=== PATIENT | female | born 1970 | race American Indian/Alaskan Native ===

== ENCOUNTER 2018-03-10 21:52 | Inpatient (IN) | payer OTHER ==
[2018-03-11 00:21] LABS: Hematocrit 42.4 % (30.3-42.9); Mean Corpuscular HGB Conc 33 % (30-34); Mean Corpuscular Hemoglobin 27 pg (28-32); Mean Corpuscular Volume 83 fl (79-97); Platelet Count 215 K/mm3 (140-440); Red Blood Count 5.11 M/mm3 (3.65-5.03)
[2018-03-11 00:34] LABS: Partial Thromboplastin Time 24.6 Sec. (24.2-36.6)
[2018-03-11 00:40] LABS: Alanine Aminotransferase 16 units/L (7-56); Albumin 4.6 g/dL (3.9-5); BUN/Creatinine Ratio 14; Blood Urea Nitrogen 11 mg/dL (7-17); Calcium 9.5 mg/dL (8.4-10.2); Hemolysis Index 2
[2018-03-11] MEDS ORDERED: MORPHINE IV ONE ×3 (01:45→10:38)
[2018-03-11] MEDS ORDERED: ZOFRAN ONE (01:45)
[2018-03-11] MEDS ORDERED: MORPHINE ONE ×2 (01:46→10:35)
[2018-03-11] MEDS ORDERED: ZOFRAN IV ONE (02:33)
--- NOTE | 2018-03-11 06:19 | Emergency Department Report ---
ED General Adult HPI - General Chief complaint: Extremity Injury, Lower Stated complaint: BACK,LEG PAIN.WEAKNESS Time Seen by Provider: 03/11/18 06:17 Source: patient Mode of arrival: Wheelchair Limitations: No Limitations - History of Present Illness Initial comments: 47-year-old female presents to the emergency department complaining of gluteal/ lower sacral pain on the left which began yesterday. She states that the pain progressed to involve her entire left leg which she found to be swollen by this morning. She has no prior history of DVT. She denies a family history of DVT. She denies recent fever or chills. She does not have any abdominal pain. She has not noticed any drainage from a lakshmi-luteal area. She does not report any change in her bowel habits or any focal weakness or numbness. She is on no prior medications. She reports no recent travel. She is a smoker. -: hour(s) Location: left, lower extremity Radiation: non-radiation Severity scale (0 -10): 10 Quality: aching Consistency: intermittent Improves with: none Worsens with: none Associated Symptoms: denies other symptoms. denies: cough, shortness of breath (no shortness of breath whatsoever) Treatments Prior to Arrival: none - Related Data Home Medications Medication Instructions Recorded Confirmed Last Taken No Known Home Medications [No 03/11/18 03/11/18 Unknown Reported Home Medications] Allergies Allergy/AdvReac Type Severity Reaction Status Date / Time No Known Allergies Allergy Unverified 03/10/18 23:55 ED Review of Systems ROS: Stated complaint: BACK,LEG PAIN.WEAKNESS Other details as noted in HPI Constitutional: denies: chills, fever Eyes: denies: eye pain, eye discharge, vision change ENT: denies: ear pain, throat pain Respiratory: denies: cough, shortness of breath, wheezing Cardiovascular: denies: chest pain, palpitations Endocrine: no symptoms reported Gastrointestinal: denies: abdominal pain, nausea, diarrhea Genitourinary: denies: urgency, dysuria, discharge Musculoskeletal: as per HPI, back pain (lakshmi-sacral), other. denies: joint swelling, arthralgia Skin: denies: rash, lesions Neurological: denies: headache, weakness, paresthesias Psychiatric: denies: anxiety, depression Hematological/Lymphatic: denies: easy bleeding, easy bruising ED Past Medical Hx - Past Medical History Previous Medical History?: No - Surgical History Past Surgical History?: No - Social History Smoking Status: Current Every Day Smoker - Medications Home Medications: Home Medications Medication Instructions Recorded Confirmed Last Taken Type No Known Home Medications [No 03/11/18 03/11/18 Unknown History Reported Home Medications] ED Physical Exam - General Limitations: No Limitations General appearance: alert, in no apparent distress - Head Head exam: Present: atraumatic, normocephalic - Eye Eye exam: Present: normal appearance. Absent: scleral icterus - ENT ENT exam: Present: mucous membranes moist - Neck Neck exam: Present: normal inspection. Absent: tenderness, meningismus - Respiratory Respiratory exam: Present: normal lung sounds bilaterally. Absent: respiratory distress - Cardiovascular Cardiovascular Exam: Present: regular rate, normal rhythm. Absent: systolic murmur, diastolic murmur, rubs, gallop - GI/Abdominal GI/Abdominal exam: Present: soft, normal bowel sounds. Absent: distended, tenderness, guarding, rebound, rigid - Rectal Rectal exam: Present: other (I do not find any gluteal or perianal abnormality) - Extremities Exam Extremities exam: Present: calf tenderness, other (swelling left leg somewhat diffusely more evident in the calf) - Back Exam Back exam: Present: normal inspection. Absent: CVA tenderness (R), CVA tenderness (L), muscle spasm, paraspinal tenderness, vertebral tenderness - Neurological Exam Neurological exam: Present: alert, oriented X3, CN II-XII intact. Absent: motor sensory deficit - Psychiatric Psychiatric exam: Present: normal affect, normal mood - Skin Skin exam: Present: warm, dry, intact, normal color. Absent: rash ED Course Vital Signs 03/10/18 03/10/18 03/11/18 22:48 23:50 05:18 Temperature 98.5 F 98.5 F Pulse Rate 89 83 Respiratory 18 16 Rate Blood Pressure 104/74 104/74 127/84 Blood Pressure [Left] O2 Sat by Pulse 99 99 Oximetry 03/11/18 03/11/18 03/11/18 05:30 06:00 06:30 Temperature Pulse Rate 76 Respiratory 19 Rate Blood Pressure 111/76 130/88 Blood Pressure 123/77 [Left] O2 Sat by Pulse Oximetry 03/11/18 03/11/18 03/11/18 07:00 07:37 08:00 Temperature Pulse Rate 86 78 Respiratory 16 16 18 Rate Blood Pressure 121/79 124/69 Blood Pressure [Left] O2 Sat by Pulse Oximetry 03/11/18 10:39 Temperature Pulse Rate Respiratory 16 Rate Blood Pressure Blood Pressure [Left] O2 Sat by Pulse Oximetry - Reevaluation(s) Reevaluation #1: Discussed with Dr. Horowitz. 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 She has been hemodynamically stable. 03/11/18 11:42 Reevaluation #2: Dr. Foster here seeing patient. 03/11/18 11:43 ED Medical Decision Making - Lab Data Result diagrams: 03/11/18 10:04 03/11/18 00:03 Laboratory Results - last 24 hr 03/11/18 03/11/18 03/11/18 00:03 00:03 00:03 WBC 17.1 H RBC 5.11 H Hgb 14.0 Hct 42.4 MCV 83 MCH 27 L MCHC 33 RDW 16.0 H Plt Count 215 PT 13.7 INR 1.00 APTT 24.6 D-Dimer 7951.75 H Sodium 138 Potassium 3.9 Chloride 98.0 Carbon Dioxide 25 Anion Gap 19 BUN 11 Creatinine 0.8 Estimated GFR > 60 BUN/Creatinine Ratio 14 Glucose 128 H Calcium 9.5 Total Bilirubin 0.80 AST 17 ALT 16 Alkaline Phosphatase 94 Total Protein 7.7 Albumin 4.6 Albumin/Globulin Ratio 1.5 Laboratory Results - last 24 hr 03/11/18 03/11/18 03/11/18 00:03 00:03 00:03 WBC 17.1 H RBC 5.11 H Hgb 14.0 Hct 42.4 MCV 83 MCH 27 L MCHC 33 RDW 16.0 H Plt Count 215 PT 13.7 INR 1.00 APTT 24.6 D-Dimer 7951.75 H Sodium 138 Potassium 3.9 Chloride 98.0 Carbon Dioxide 25 Anion Gap 19 BUN 11 Creatinine 0.8 Estimated GFR > 60 BUN/Creatinine Ratio 14 Glucose 128 H Lactic Acid Calcium 9.5 Total Bilirubin 0.80 AST 17 ALT 16 Alkaline Phosphatase 94 Total Protein 7.7 Albumin 4.6 Albumin/Globulin Ratio 1.5 Urine Color Urine Turbidity Urine pH Ur Specific [place] Urine Protein Urine Glucose (UA) Urine Ketones Urine Blood Urine Nitrite Urine Bilirubin Urine Urobilinogen Ur Leukocyte Esterase Urine WBC (Auto) Urine RBC (Auto) U Epithel Cells (Auto) Urine Bacteria (Auto) Urine Mucus Urine HCG, Qual 03/11/18 03/11/18 03/11/18 07:11 10:04 10:04 WBC RBC Hgb 13.8 Hct 41.9 MCV MCH MCHC RDW Plt Count 191 PT 14.9 INR 1.11 APTT 20.2 L D-Dimer Sodium Potassium Chloride Carbon Dioxide Anion Gap BUN Creatinine Estimated GFR BUN/Creatinine Ratio Glucose Lactic Acid 1.70 Calcium Total Bilirubin AST ALT Alkaline Phosphatase Total Protein Albumin Albumin/Globulin Ratio Urine Color Urine Turbidity Urine pH Ur Specific [place] Urine Protein Urine Glucose (UA) Urine Ketones Urine Blood Urine Nitrite Urine Bilirubin Urine Urobilinogen Ur Leukocyte Esterase Urine WBC (Auto) Urine RBC (Auto) U Epithel Cells (Auto) Urine Bacteria (Auto) Urine Mucus Urine HCG, Qual 03/11/18 10:07 WBC RBC Hgb Hct MCV MCH MCHC RDW Plt Count PT INR APTT D-Dimer Sodium Potassium Chloride Carbon Dioxide Anion Gap BUN Creatinine Estimated GFR BUN/Creatinine Ratio Glucose Lactic Acid Calcium Total Bilirubin AST ALT Alkaline Phosphatase Total Protein Albumin Albumin/Globulin Ratio Urine Color Yellow Urine Turbidity Slightly-cloudy Urine pH 5.0 Ur Specific [place] 1.060 H Urine Protein 30 mg/dl Urine Glucose (UA) Neg Urine Ketones Neg Urine Blood Neg Urine Nitrite Neg Urine Bilirubin Neg Urine Urobilinogen < 2.0 Ur Leukocyte Esterase Neg Urine WBC (Auto) 1.0 Urine RBC (Auto) 9.0 U Epithel Cells (Auto) 20.0 H Urine Bacteria (Auto) 1+ Urine Mucus 3+ Urine HCG, Qual Negative - EKG Data -: EKG Interpreted by Me EKG shows normal: sinus rhythm, axis, intervals, QRS complexes, ST-T waves Rate: normal - EKG Data Interpretation: no acute changes - Radiology Data Radiology results: report reviewed (discussed with Doppler tech. Thrombosis from the groin to the calf by) interpreted by me: ACUTE DVT NOTED IN LT. CFV, SFV , PTV. Chest x-ray no acute process Awaiting radiology interpretation CT of the abdomen and pelvis Critical care attestation.: If time is entered above; I have spent that time in minutes in the direct care of this critically ill patient, excluding procedure time. ED Disposition Clinical Impression: Deep vein thrombosis Qualifiers: DVT location: lower extremity Affected thrombotic vein of extremity: unspecified lower extremity proximal vein Chronicity: acute Laterality: left Qualified Code(s): I82.4Y2 - Acute embolism and thrombosis of unspecified deep veins of left proximal lower extremity Disposition: OP ADMIT IP TO THIS HOSP Is pt being admited?: Yes Does the pt Need Aspirin: No (fully heparinized) Condition: Stable Referrals: PRIMARY CARE, [Primary Care Provider] - 3-5 Days Time of Disposition: 11:45
[2018-03-11] MEDS ORDERED: HEPARIN 10,000 UNITS/10 ML IV ONE (09:12)
[2018-03-11] MEDS ORDERED: HEPARIN/ 0.45% NACL-25,000 UNIT/500 ML 25,000 UNIT/500 ML BAG IV SCH (10:00)
[2018-03-11] MEDS ORDERED: HEPARIN/ 0.45% NACL-25,000 UNIT/500 ML 25,000 UNIT/500 ML BAG ONE (10:14)
[2018-03-11 10:26] LABS: Hematocrit 41.9 % (30.3-42.9); Hemoglobin 13.8 gm/dl (10.1-14.3)
[2018-03-11 10:32] LABS: Bacteria,Urine 1+ /HPF (Negative); Bilirubin,Urine NEG (Negative); Blood,Urine NEG (Negative); Color,Urine Yellow (Yellow); HCG Qualitative,Urine Negative (Negative); Mucus,Urine 3+ /HPF; Urobilinogen,Urine < 2.0 mg/dL (<2.0)
[2018-03-11 10:37] LABS: INR 1.11 (0.87-1.13); Partial Thromboplastin Time 20.2 Sec. (24.2-36.6)
--- NOTE | 2018-03-11 12:25 | History and Physical Report ---
History of Present Illness Date of examination: 03/11/18 Date of admission: 03/11/18 11:29 Chief complaint: Pain and swelling left leg History of present illness: Patient is 47 yo obese female presents with left leg pain and swelling for 1 day. pain is 10 out of 10 in severity, achy, no radiation. pain is worse on movement, though present at rest. She also complained of swelling leg for 1 day. She denied any trauma, denies any recent travel. No chest pain, no shortness of breath. She was evaluated in ED and Doppler confirms acute DVT left lower ext that is extensive. patient already evaluated by vascular surgeon. She is for thrombectomy, thrombolysis and possible angioplasty. Will admit. Past History Past Medical History: No medical history, other (obese) Past Surgical History: (X 4) Social history: lives with family, smoking (Started nicotine patch to quit smoking. been smoking for years), full code (easily identified as he is he is). denies: IV drug use Family history: cancer ( a [facility] or present illness he is as well and I will utilize as needed AT THE BEGINNING OF) Medications and Allergies Allergies Allergy/AdvReac Type Severity Reaction Status Date / Time No Known Allergies Allergy Unverified 03/10/18 23:55 Home Medications Medication Instructions Recorded Confirmed Last Taken Type No Known Home Medications [No 03/11/18 03/11/18 Unknown History Reported Home Medications] Active Meds: Active Medications Heparin Sodium/Sodium Chloride (Heparin/ 0.45% Nacl-25,000 Unit/500 Ml) 25,000 unit in 500 mls @ 30 mls/hr IV TITR HANNAH; Protocol Last Admin: 03/11/18 10:15 Dose: 1,500 units/hr, 30 mls/hr Review of Systems All systems: negative (No fever, no headache, no chest pain, no SOB. All other systems reviewed and are negative) Exam - Physical Exam Narrative exam: GEN:Not in acute distress, lying in bed,obese HEENT: Normocephalic, atraumatic, Neck: supple, No JVD Lungs: Clear to auscultaion bilaterally, no crackles Heart:S1 and S2 reg, no murmurs, rubs or gallop Abd:soft, non-tender, non-distended, Normal bowel sounds Ext: Left leg edema, tenderness, no clubbing or cyanosis Neuro: Awake, alert, oriented X 3, Moves all extremities - Constitutional Vitals: Temp Pulse Resp BP Pulse Ox 98.5 F 85 20 137/95 99 03/10/18 23:50 03/11/18 11:30 03/11/18 11:30 03/11/18 11:30 03/11/18 11:30 Results - Labs CBC & Chem 7: 03/12/18 06:10 03/12/18 06:10 Labs: Abnormal lab results 03/11/18 03/11/18 03/11/18 Range/Units 00:03 00:03 00:03 WBC 17.1 H (4.5-11.0) K/mm3 RBC 5.11 H (3.65-5.03) M/mm3 MCH 27 L (28-32) pg RDW 16.0 H (13.2-15.2) % APTT (24.2-36.6) Sec. D-Dimer 7951.75 H (0-234) ng/mlDDU Glucose 128 H (65-100) mg/dL Ur Specific [place] (1.003-1.030) U Epithel Cells (Auto) (0-13.0) /HPF 03/11/18 03/11/18 Range/Units 10:04 10:07 WBC (4.5-11.0) K/mm3 RBC (3.65-5.03) M/mm3 MCH (28-32) pg RDW (13.2-15.2) % APTT 20.2 L (24.2-36.6) Sec. D-Dimer (0-234) ng/mlDDU Glucose (65-100) mg/dL Ur Specific [place] 1.060 H (1.003-1.030) U Epithel Cells (Auto) 20.0 H (0-13.0) /HPF Assessment and Plan Acute DVT left lower ext extensive. Admit to med/surg Discussed with Dr. Horowitz, vasc surg . For thrombectomy, thrombolysis Obesity. Discussed diet and exercise to lose weight Smoking cessation counseling done.'She states she has been using patch to quit smoking Full code status
[2018-03-11] MEDS ORDERED: ALUM-MAG HYDROX-SIMETH 200-200-20MG/5ML PO PRN (12:58)
[2018-03-11] MEDS ORDERED: SODIUM CHLORIDE FLUSH SYRINGE 10 ML IV PRN (12:58)
[2018-03-11] MEDS ORDERED: MORPHINE IV PRN (12:58)
[2018-03-11] MEDS ORDERED: HEPARIN/NS 5000 UNIT/500ML(CATH LAB) 1,000 ML IR ONE ×2 (13:00→14:19)
[2018-03-11] MEDS ORDERED: NACL 0.9% 500 ML 500 ML ONE (13:01)
[2018-03-11] MEDS ORDERED: CATHFLO ONE ×2 (13:02→13:14)
[2018-03-11] MEDS ORDERED: NACL 0.9% 0 ML ONE (13:02)
--- NOTE | 2018-03-11 13:05 | Consultation ---
History of Present Illness - Reason for Consult Consult date: 03/11/18 Left Lower Extremity DVT Requesting physician: WILVER HARRIS - History of Present Illness The patient is a 47-year-old female with no significant past medical history states she began having significant back and left lower extremity pain on Saturday. She states that this was associated with left lower extremity swelling as well. She denies any recent illness or surgical procedures that required prolonged bed rest. She states she went to her [facility] class on Saturday however she was unable to make it to the first song and went home secondary to the pain. Since Saturday the pain and swelling has progressively worsened. She denies any history of deep venous thrombosis. She she also denies any family history of deep venous thrombosis. 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 Other than the pain and swelling of the left lower extremity she has no other complaints including no shortness of breath. Additionally she denies any recent or remote history of head trauma, rectal bleeding or vaginal bleeding. Past History Past Medical History: No medical history, other (obese) Past Surgical History: (X 4), Other (Excision of skin from alleric reaction on left ankle) Social history: lives with family, smoking (Started nicotine patch), full code ( easily identified as he is he is). denies: IV drug use Family history: cancer ( a [facility] or present illness he is as well and I will utilize as needed AT THE BEGINNING OF) Medications and Allergies Allergies Allergy/AdvReac Type Severity Reaction Status Date / Time No Known Allergies Allergy Unverified 03/10/18 23:55 Home Medications Medication Instructions Recorded Confirmed Last Taken Type No Known Home Medications [No 03/11/18 03/11/18 Unknown History Reported Home Medications] Active Meds: Active Medications Heparin Sodium/Sodium Chloride (Heparin/ 0.45% Nacl-25,000 Unit/500 Ml) 25,000 unit in 500 mls @ 30 mls/hr IV TITR HANNAH; Protocol Last Admin: 03/11/18 10:15 Dose: 1,500 units/hr, 30 mls/hr Review of Systems All systems: negative Exam - Constitutional Vitals: Temp Pulse Resp BP Pulse Ox 98.5 F 88 16 140/91 99 03/10/18 23:50 03/11/18 12:00 03/11/18 12:00 03/11/18 12:00 03/11/18 11:30 General appearance: Present: obese - EENT ENT: hearing intact - Neck Neck: Present: supple. Absent: masses or JVD - Respiratory Respiratory effort: normal - Cardiovascular Rhythm: regular - Extremities Extremities: no ischemia, pulses intact, pulses symmetrical, normal temperature Extremity abnormal: edema (Left lower extremity) - Abdominal General gastrointestinal: Present: soft, non-tender, non-distended - Integumentary Integumentary: Present: clear - Musculoskeletal Musculoskeletal: strength equal bilaterally Results - Labs CBC & Chem 7: 03/11/18 10:04 03/11/18 00:03 Labs: Abnormal lab results 03/11/18 03/11/18 03/11/18 Range/Units 00:03 00:03 00:03 WBC 17.1 H (4.5-11.0) K/mm3 RBC 5.11 H (3.65-5.03) M/mm3 MCH 27 L (28-32) pg RDW 16.0 H (13.2-15.2) % APTT (24.2-36.6) Sec. D-Dimer 7951.75 H (0-234) ng/mlDDU Glucose 128 H (65-100) mg/dL Ur Specific [place] (1.003-1.030) U Epithel Cells (Auto) (0-13.0) /HPF 03/11/18 03/11/18 Range/Units 10:04 10:07 WBC (4.5-11.0) K/mm3 RBC (3.65-5.03) M/mm3 MCH (28-32) pg RDW (13.2-15.2) % APTT 20.2 L (24.2-36.6) Sec. D-Dimer (0-234) ng/mlDDU Glucose (65-100) mg/dL Ur Specific [place] 1.060 H (1.003-1.030) U Epithel Cells (Auto) 20.0 H (0-13.0) /HPF - Imaging and Cardiology CT scan - abdomen: image reviewed Venous US: image reviewed (Acute Left lower extremity DVT involving tibial vessels and extending into the popliteal and femoral vessels. The proximal popliteal, femoral, and profunda vein are occluded) Assessment and Plan The patient is a 47 year old female with and extensive LLE DVT with occusive thrombus in the fermoral vein and profunda vein. Given these findings and her symptoms she would benefit from left lower extremity thrombectomy with possible thrombolysis to prevent future complications of post phlebitic syndrome. If she has evidence of May-Thurner Syndrome she may require angioplasty and stenting of her iliac veins. Would also recommend a anticoagulation with oral Anti Xa drugs such as Eliquis or Xarelto for a minimum of 3 months. I would get a Compress Trucker/Oncologist consult to rule out a hyperocoagulable state from Antiphospholipid Syndromes given the DVT with the history of multiple miscarriages. If that were positive, she would require anticoagulation for life.
[2018-03-11] MEDS: SUBLIMAZE ONE ×5 (13:12→15:13)
[2018-03-11] MEDS: VERSED ONE ×5 (13:12→15:13)
--- NOTE | 2018-03-11 13:12 | XRay Report ---
AP CHEST : 03/11/18 CLINICAL: Hypertension. COMPARISON:None FINDINGS: Normal heart and pulmonary vessels. The lungs are clear except for mild right basal opacities. No pleural effusion. The bones and soft tissues are unremarkable. IMPRESSION: Mild right middle lobe atelectasis versus early pneumonia.
--- NOTE | 2018-03-11 13:12 | Cat Scan Report ---
CT ABDOMEN PELVIS WITH CONTRAST: HISTORY: Pelvic pain, leukocytosis, swollen left lower extremity. COMPARISON: none. TECHNIQUE: Helical CT in 1.25mm intervals following IV contrast. Sagittal and coronal reconstructions. FINDINGS: Lung bases: Normal. Liver: Normal. Biliary system: Normal. Pancreas: Normal. Spleen: Normal. Kidneys/ureters/bladder: Normal. Adrenal glands: Normal. Aorta: Normal. The IVC and iliac veins appear to be patent with no obvious thrombosis. The internal iliac veins do appear dilated bilaterally with presacral varicosities. There is suggestion of mild compression of the left iliac vein as it crosses beneath the right common iliac artery. May Thurner syndrome could be considered. Intestines: Within normal limits given no oral contrast was administered. Appendix: Normal. Pelvic viscera: A 2.1 cm right ovarian cyst is identified. The uterus and left ovary are unremarkable. Ascites: None. Adenopathy: None. Musculoskeletal: Normal. IMPRESSION: No acute inflammatory process is identified. May Thurner syndrome? Please see above. 2.1 cm right ovarian cyst.
[2018-03-11] MEDS: XYLOCAINE 1%/ EPI 1:100,000 INFILTRATI ONE ×2 (13:14→13:53)
[2018-03-11] MEDS ORDERED: WATER FOR INJ (PF) ONE (13:28)
[2018-03-11] MEDS ORDERED: NACL 0.9% 100 ML ONE (13:58)
[2018-03-11] MEDS: HEPARIN 10,000 UNITS/10 ML ONE ×2 (14:08→15:15)
[2018-03-11] MEDS ORDERED: TORADOL ONE (14:29)
--- NOTE | 2018-03-11 16:06 | Operative Report ---
Operative Report Operative Report: Date of Procedure: 03/11/2018 Pre-operative Diagnosis: Acute Left Lower Extremity DVT Post-operative Diagnosis: Acute Left Lower Extremity DVT with May-Thurner Syndrome Procedure(s): 1. Ultrasound-Guided Access Right Internal Jugular Vein 2. Diagnostic Inferior Venacavogram 3. Placement of Brenda IVC Filter 4. Ultrasound-Guided Access Left Popliteal Vein 5. PharmacoMechanical Thrombectomy of Left Common Femoral Vein with TPA and Zelante AngioJet Aspiration Catheter 6. PharmacoMechanical Thrombectomy of Left External Iliac Vein TPA and Zelante AngioJet Aspiration Catheter 7. PharmacoMechanical Thrombectomy of Left Common Iliac Vein TPA and Zelante AngioJet Aspiration Catheter 8. Angioplasty and Stent of Left Common Iliac Vein With 14 x 40 Balloon and 16 x 90 Wall Stent 9. Angioplasty and Stenting of Left External Iliac Vein with 14 x 40 Balloon and 16 x 90 Wall Stent 10. Angioplasty Stent of Right Common Iliac Vein with 14 x 40 Balloon and 14 x 60 Wall Stent Surgeon: Olayinka Horowitz M.D. Job Forwarder: None Anesthesia: Local and IV Sedation EBL: Minimal Counts: Correct Complications: None Condition: Stable Venogram Findings: The inferior venacavogram shredded that the inferior vena cava was patent without any evidence of thrombus. It was normal caliber. The filter was placed without significant tilt. The left lower extremity venogram demonstrated that all reported thrombus within the left popliteal artery had embolized and was lodged within the left common femoral, external iliac, and common iliac veins. There was obvious evidence of May-Thurner Syndrome with near total occlusion of the proximal left common iliac vein. After intervention the left common femoral vein as well as the external leg vein and the common iliac veins were widely patent with brisk flow of contrast in less than 10% residual stenosis. Specimen: None Indication: The patient is a 47-year-old female who presented to the emergency department with complaints of back pain and left lower extremity pain and swelling that has been present for 3 days prior to her presentation to the emergency department. Her workup included a left lower extremity venous duplex that demonstrated acute deep venous thrombosis with occlusion of her femoral vein including her profunda vein. Given her pain and the concern for postphlebitic syndrome she was offered a thrombectomy with possible thrombolysis. She was given the risks, benefits, and alternative procedures and consented to the procedure. Description of Procedure: The patient was brought to the labor relations officer in supine position. She was adequately sedated her right neck was prepped and draped in normal sterile fashion. Ultrasound was used to identify the right internal jugular vein and the overlying skin and soft tissue was anesthetized with lidocaine. A small stab incision was created with an 11 blade and then an 18-gauge access needle was used with ultrasound guidance to enter the right internal jugular vein. A 0.035 J-wire was advanced into the inferior vena cava under fluoroscopy. A 5 [place] sheath was in place by Seldinger technique. A 5 [place] pigtail catheter was advanced to the inferior vena cava and an inferior venacavogram was performed with the procedures described findings. The J-wire was then advanced back into the inferior vena cava and the pigtail catheter was removed. The filter delivery sheath was advanced into the inferior vena cava and then the filter was advanced and position. The delivery sheath was retracted deploying the filter in place with the proximal tip in the middle of the body of L2 without any evidence of tilt. The delivery sheath was then removed and pressure was held to achieve hemostasis. Dermabond was then used to close the incision and a pressure dressing was then placed sterilely. The patient was then moved onto her bed and then placed back onto the labor relations officer table position. Ultrasound was used to identify the left popliteal vein behind the knee and the overlying skin and soft tissue was anesthetized with lidocaine. A small stab incision was made in the micropuncture technique was used with ultrasound guidance into the left popliteal vein. The 0.035 J-wire was advanced into the left femoral vein under fluoroscopy and a 5 [place] sheath was placed via Seldinger technique. A venogram was performed with the previously described findings. At this point I systemically heparinized the patient 5000 units heparin IV. I advanced a 4 [place] Navicross catheter over the J-wire and attempted to cross the stenosis created by the compression in the left, leg vein with multiple wires however I was unsuccessful so I advanced the J-wire to the area of compression. I removed the 5 [place] sheath and exchanged for an 8 [place] sheath and used the Zelante AngioJet aspiration catheter for a total of 90 seconds to perform percutaneous thrombectomy of the left common iliac, external iliac, common femoral veins. The follow-up venogram demonstrated significant reduction of the thrombus burden. I then use a total of 30 mg of TPA and 100 mg of heparinized saline and placed the entire area of thrombus with the solution. I allowed this to dwell for a total of 20 minutes and then I used the Zelante Angiojet aspiration catheter to perform an additional 90 seconds thrombectomy of the same areas as previously performed. After performing the thrombectomy I readvanced the Navicross catheter to the area of occlusion and used a 0.014 Choice PT wire and was able to cross the area of occlusion. I was unable to pass the catheter across the occlusion so I used a 6 x 100 Lennox balloon to predilate the stenosis. I then exchanged the 8 [place] sheath in the left popliteal vein for 10 [place] sheath. I then used ultrasound to identify the right popliteal vein behind the knee. I anesthetized the overlying skin and soft tissue and made a small stab incision with an 11 blade. I used ultrasound guidance with microscopic technique to access the vein and then advanced a 0.035 J-wire into the right femoral vein under fluoroscopy. I placed a 10 [place] sheath by Seldinger technique. I then used a 14 x 40 balloon to perform angioplasty of the stenotic areas within the left common iliac and left external iliac veins. The post angioplasty venogram demonstrated recoil of the lesions with a residual of 80% stenosis. I advanced a 16 x 90 self-expanding Wall Stent into the distal IVC with approximately 3 cm of overlap across the area of stenosis in the left common iliac vein. I then advanced a 14 x 60 self-expanding Wall Stent into the right common iliac vein, at the same level as the left common iliac stent. The stents were simultaneously deployed and then the 14 x 40 balloons were inflated simultaneously in the right and left common iliac veins respectively to post dilate the stents. Additionally in the 14 x 40 balloon was used to post dilate not lesion within the left external leg vein. The post angioplasty venogram demonstrated less than 10% residual stenosis bilaterally. At this point all wires and balloons were removed and then the sheaths were removed and pressure was held to achieve hemostasis. The wounds were then dressed with sterile gauze and pressure dressings were applied. The patient tolerated the procedure well. All sponge, needle, and instrument counts were correct. The patient was taken to her room in stable condition.
[2018-03-11] MEDS: ELIQUIS PO SCH ×2 (18:28→22:23)
[2018-03-11] MEDS: TORADOL IV SCH ×2 (18:28→22:27)
--- NOTE | 2018-03-11 21:52 | Event Note ---
Date: 03/11/18 As pt was in Radiology guided procedure room for her DVT, hence I could not evaluate pt. Will follow her tomorrow
[2018-03-11] MEDS: SODIUM CHLORIDE FLUSH SYRINGE 10 ML IV SCH (22:22)
[2018-03-12 06:38] LABS: Basophils # (Auto) 0.1 K/mm3 (0.0-0.1); Basophils % (Auto) 0.5 % (0.0-1.8); Eosinophils # (Auto) 0.2 K/mm3 (0.0-0.4); Eosinophils % (Auto) 1.8 % (0.0-4.3); Hematocrit 32.5 % (30.3-42.9); Hemoglobin 10.9 gm/dl (10.1-14.3); Lymphocytes # (Auto) 1.5 K/mm3 (1.2-5.4); Lymphocytes % (Auto) 12.6 % (13.4-35.0); Mean Corpuscular HGB Conc 34 % (30-34); Mean Corpuscular Hemoglobin 28 pg (28-32); Mean Corpuscular Volume 83 fl (79-97); Monocytes # (Auto) 1.5 K/mm3 (0.0-0.8); Monocytes % (Auto) 12.2 % (0.0-7.3); Platelet Count 136 K/mm3 (140-440); Red Blood Count 3.91 M/mm3 (3.65-5.03); Red Cell Distribution Width 15.9 % (13.2-15.2)
[2018-03-12] MEDS: TORADOL IV SCH (06:50)
[2018-03-12 07:07] LABS: Calcium 8.5 mg/dL (8.4-10.2)
--- NOTE | 2018-03-12 08:53 | Consultation ---
History of Present Illness - Reason for Consult Consult date: 03/12/18 acute renal failure - History of Present Illness The patient was a 47 YO female with medical history significant for Obesity who presented with left leg pain and swelling of 1 day duration. The pain was 10 out of 10 in severity, aching in nature, constant and no radiation. She denied any trauma, recent travel, chest pain, shortness of breath, hemoptysis, palpitation, dizziness, fever, chills, N, V, d, abd pain, dysuria or hematuria. On further evaluation she was found to have extensive acute DVT of left lower extremity. She underwent thrombectomy, angioplasty and IVC filter placement. Patient admits taking Advil for the past few days on a daily basis. She received IV contrast yesterday. Her creatinine increased to 3.1 today from 0.8 today. Past History Past Medical History: No medical history, other (obesity) Past Surgical History: (X 4) Social history: lives with family, smoking (Started nicotine patch to quit smoking. been smoking for years), full code (easily identified as he is he is). denies: IV drug use Family history: cancer ( a [facility] or present illness he is as well and I will utilize as needed AT THE BEGINNING OF) Medications and Allergies Allergies Allergy/AdvReac Type Severity Reaction Status Date / Time No Known Allergies Allergy Unverified 03/10/18 23:55 Home Medications Medication Instructions Recorded Confirmed Last Taken Type No Known Home Medications [No 03/11/18 03/11/18 Unknown History Reported Home Medications] Active Meds: Active Medications Acetaminophen (Tylenol) 650 mg PO Q4H PRN PRN Reason: Pain MILD(1-3)/Fever >100.5/ROCHE Acetaminophen/Hydrocodone Bitart ([place] 7.5/325) 1 each PO Q6H PRN PRN Reason: Pain, Moderate (4-6) Al Hydrox/Mg Hydrox/Simethicone (Alum-Mag Hydrox-Simeth [id number]/5ml) 30 ml PO Q4H PRN PRN Reason: Indigestion Apixaban (Eliquis) 10 mg PO Q12HR HANNAH; Protocol Last Admin: 03/11/18 22:23 Dose: 10 mg Ondansetron HCl (Zofran) 4 mg IV Q8H PRN PRN Reason: Nausea And Vomiting Sodium Chloride (Sodium Chloride Flush Syringe 10 Ml) 10 ml IV BID HANNAH Last Admin: 03/11/18 22:22 Dose: 10 ml Sodium Chloride (Sodium Chloride Flush Syringe 10 Ml) 10 ml IV PRN PRN PRN Reason: LINE FLUSH Review of Systems Constitutional: no weight loss, no weight gain, no fever, no chills, no anorexia , no fatigue, no weakness Breasts: deferred Cardiovascular: edema, leg edema, no chest pain, no orthopnea, no palpitations, no syncope, no lightheadedness, no shortness of breath, no dyspnea on exertion, no high blood pressure Respiratory: no cough, no hemoptysis, no shortness of breath, no dyspnea on exertion Gastrointestinal: no abdominal pain, no nausea, no vomiting, no diarrhea, no melena, no jaundice Genitourinary Female: no dysuria, no hematuria Rectal: no bleeding Musculoskeletal: no muscle weakness, no muscle cramps Integumentary: no rash, no redness, no wounds, no jaundice Neurological: no paralysis, no weakness, no convulsions, no change in speech, no change in mentation, no confusion, no memory loss Exam - Vital Signs Vital signs: Vital Signs Temp Pulse Resp BP Pulse Ox 98.5 F 89 18 104/74 99 03/10/18 22:48 03/10/18 22:48 03/10/18 22:48 03/10/18 22:48 03/10/18 22:48 - General Appearance General appearance: well-developed, well-nourished, appears stated age, other ( not in distress) EENT: ATNC, PERRL, mucous membranes moist, hearing intact, vision intact Neck: Present: neck supple, trachea midline Respiratory: Clear to Ascultation Heart: regular, S1S2, no murmurs Gastrointestinal: Present: normoactive bowel sounds, obese. Absent: tenderness , distended Integumentary: no rash, warm and dry Neurologic: no focal deficit, no asterixis, alert and oriented x3 Musculoskeletal: Present: other (no edema) Psychiatric: cooperative Results - Lab Results 03/13/18 04:45 03/13/18 04:45 Most recent lab results Calcium 8.5 mg/dL (8.4-10.2) 03/12/18 06:10 - Image Kidney/bladder ultrasound: other Assessment and Plan 1. Acute kidney injury: Likely ATN in the setting of NSAIDs and IV contrast. Started on IV fluids and Mucomyst. CT abdomen was negative for any urinary obstruction. No e/o Renal or IVC obstruction. Monitor renal function. 2. Extensive DVT. 3. Anemia.
--- NOTE | 2018-03-12 09:41 | Progress Note ---
Assessment and Plan Assessment and plan: Acute DVT left lower ext extensive. Admitted to med/surg Discussed with Dr. Horowitz, [facility] surg . had thrombectomy, angioplasty and stent placement 03/11 Acute kidney injury, likely contrast nephropathy Cr 3.4 iv fluids, mucomyst Obesity. Discussed diet and exercise to lose weight Smoking cessation counseling done.'She states she has been using patch to quit smoking Full code status History Interval history: Less pain left leg Hospitalist Physical - Physical exam Narrative exam: GEN:Not in acute distress, lying in bed,obese HEENT: Normocephalic, atraumatic, Neck: supple, No JVD Lungs: Clear to auscultaion bilaterally, no crackles Heart:S1 and S2 reg, no murmurs, rubs or gallop Abd:soft, non-tender, non-distended, Normal bowel sounds Ext: Left leg edema, tenderness, no clubbing or cyanosis Neuro: Awake, alert, oriented X 3, Moves all extremities - Constitutional Vitals: Temp Pulse Resp BP Pulse Ox 98.8 F 99 H 20 137/85 96 03/12/18 06:06 03/12/18 06:06 03/12/18 06:06 03/12/18 06:06 03/12/18 06:06 General appearance: Present: obese Results - Labs CBC & Chem 7: 03/13/18 04:45 03/13/18 04:45 Labs: Laboratory Last Values WBC 12.1 K/mm3 (4.5-11.0) H 03/12/18 06:10 RBC 3.91 M/mm3 (3.65-5.03) 03/12/18 06:10 Hgb 10.9 gm/dl (10.1-14.3) 03/12/18 06:10 Hct 32.5 % (30.3-42.9) D 03/12/18 06:10 MCV 83 fl (79-97) 03/12/18 06:10 MCH 28 pg (28-32) 03/12/18 06:10 MCHC 34 % (30-34) 03/12/18 06:10 RDW 15.9 % (13.2-15.2) H 03/12/18 06:10 Plt Count 136 K/mm3 (140-440) L 03/12/18 06:10 Lymph % (Auto) 12.6 % (13.4-35.0) L 03/12/18 06:10 [place] % (Auto) 12.2 % (0.0-7.3) H 03/12/18 06:10 Eos % (Auto) 1.8 % (0.0-4.3) 03/12/18 06:10 Baso % (Auto) 0.5 % (0.0-1.8) 03/12/18 06:10 Lymph # 1.5 K/mm3 (1.2-5.4) 03/12/18 06:10 [place] # 1.5 K/mm3 (0.0-0.8) H 03/12/18 06:10 Eos # 0.2 K/mm3 (0.0-0.4) 03/12/18 06:10 Baso # 0.1 K/mm3 (0.0-0.1) 03/12/18 06:10 Seg Neutrophils % 72.9 % (40.0-70.0) H 03/12/18 06:10 Seg Neutrophils # 8.8 K/mm3 (1.8-7.7) H 03/12/18 06:10 PT 14.9 Sec. (12.2-14.9) 03/11/18 10:04 INR 1.11 (0.87-1.13) 03/11/18 10:04 APTT 20.2 Sec. (24.2-36.6) L 03/11/18 10:04 D-Dimer 7951.75 ng/mlDDU (0-234) H 03/11/18 00:03 Heparin Anti-Xa Level > 2.00 U.I./ml (0.3-0.7) H 03/11/18 06:10 Sodium 136 mmol/L (137-145) L 03/12/18 06:10 Potassium 4.1 mmol/L (3.6-5.0) 03/12/18 06:10 Chloride 100.3 mmol/L (98-107) 03/12/18 06:10 Carbon Dioxide 23 mmol/L (22-30) 03/12/18 06:10 Anion Gap 17 mmol/L 03/12/18 06:10 BUN 23 mg/dL (7-17) H 03/12/18 06:10 Creatinine 3.1 mg/dL (0.7-1.2) H D 03/12/18 06:10 Estimated GFR 16 ml/min 03/12/18 06:10 BUN/Creatinine Ratio 7 % 03/12/18 06:10 Glucose 110 mg/dL (65-100) H 03/12/18 06:10 Lactic Acid 1.70 mmol/L (0.7-2.0) 03/11/18 07:11 Calcium 8.5 mg/dL (8.4-10.2) 03/12/18 06:10 Total Bilirubin 0.80 mg/dL (0.1-1.2) 03/11/18 00:03 AST 17 units/L (5-40) 03/11/18 00:03 ALT 16 units/L (7-56) 03/11/18 00:03 Alkaline Phosphatase 94 units/L (35-129) 03/11/18 00:03 Total Protein 7.7 g/dL (6.3-8.2) 03/11/18 00:03 Albumin 4.6 g/dL (3.9-5) 03/11/18 00:03 Albumin/Globulin Ratio 1.5 % 03/11/18 00:03 Urine Color Yellow (Yellow) 03/11/18 10:07 Urine Turbidity Slightly-cloudy (Clear) 03/11/18 10:07 Urine pH 5.0 (5.0-7.0) 03/11/18 10:07 Ur Specific [place] 1.060 (1.003-1.030) H 03/11/18 10:07 Urine Protein 30 mg/dl mg/dL (Negative) 03/11/18 10:07 Urine Glucose (UA) Neg mg/dL (Negative) 03/11/18 10:07 Urine Ketones Neg mg/dL (Negative) 03/11/18 10:07 Urine Blood Neg (Negative) 03/11/18 10:07 Urine Nitrite Neg (Negative) 03/11/18 10:07 Urine Bilirubin Neg (Negative) 03/11/18 10:07 Urine Urobilinogen < 2.0 mg/dL (<2.0) 03/11/18 10:07 Ur Leukocyte Esterase Neg (Negative) 03/11/18 10:07 Urine WBC (Auto) 1.0 /HPF (0.0-6.0) 03/11/18 10:07 Urine RBC (Auto) 9.0 /HPF (0.0-6.0) 03/11/18 10:07 U Epithel Cells (Auto) 20.0 /HPF (0-13.0) H 03/11/18 10:07 Urine Bacteria (Auto) 1+ /HPF (Negative) 03/11/18 10:07 Urine Mucus 3+ /HPF 03/11/18 10:07 Urine HCG, Qual Negative (Negative) 03/11/18 10:07
[2018-03-12 10:31] LABS: Calcium 8.6 mg/dL (8.4-10.2)
[2018-03-12] MEDS: ELIQUIS PO SCH ×2 (10:45→23:03)
[2018-03-12] MEDS: MUCOMYST ORAL PO SCH (10:45)
[2018-03-12] MEDS: NACL 0.9% 1000 ML 1,000 ML IV SCH (10:46)
[2018-03-12] MEDS: SODIUM CHLORIDE FLUSH SYRINGE 10 ML IV SCH (10:46)
--- NOTE | 2018-03-12 11:22 | Progress Note ---
Assessment and Plan His patient presented with an acute extensive left lower extremity DVT. She is taken for mechanical thrombectomy with thrombolysis. Venous angioplasty and stent placement were performed. Patient's GFR has decreased. Intravenous hydration has been ordered. Nephrology has been consulted. Anticoagulation with Eliquis has been started. - Patient Problems (1) May-Thurner syndrome Current Visit: Yes Status: Acute (2) Acute deep vein thrombosis (DVT) of left iliofemoral vein Current Visit: Yes Status: Acute (3) ARF (acute renal failure) Current Visit: Yes Status: Acute Subjective Date of service: 03/12/18 Interval history: Patient is awake and alert without specific complaints at present. Objective - Constitutional Vitals: Vital Signs - 12hr 03/12/18 06:06 Temperature 98.8 F Pulse Rate 99 H Respiratory 20 Rate Blood Pressure 137/85 O2 Sat by Pulse 96 Oximetry General appearance: Present: no acute distress - EENT Eyes: EOM intact ENT: hearing intact - Respiratory Respiratory effort: normal Extremities: no ischemia, normal temperature, abnormal (pressure bandages from her right IJ and bilateral popliteal vein areas were removed. The Telfa and Tegaderm bandages below that were left in place. No signs of acute hemorrhage erythema or swelling were appreciated at the puncture sites.) - Neurologic Neurologic: no focal deficits - Psychiatric Psychiatric: appropriate mood/affect, intact judgment & insight, cooperative - Labs CBC & Chem 7: 03/12/18 06:10 03/12/18 07:39 Labs: Abnormal lab results 03/11/18 03/12/18 03/12/18 Range/Units 06:10 06:10 06:10 WBC 12.1 H (4.5-11.0) K/mm3 RDW 15.9 H (13.2-15.2) % Plt Count 136 L (140-440) K/mm3 Lymph % (Auto) 12.6 L (13.4-35.0) % [place] % (Auto) 12.2 H (0.0-7.3) % [place] # 1.5 H (0.0-0.8) K/mm3 Seg Neutrophils % 72.9 H (40.0-70.0) % Seg Neutrophils # 8.8 H (1.8-7.7) K/mm3 Heparin Anti-Xa Level > 2.00 H (0.3-0.7) U.I./ml Sodium 136 L (137-145) mmol/L BUN 23 H (7-17) mg/dL Creatinine 3.1 H D (0.7-1.2) mg/dL Glucose 110 H (65-100) mg/dL 03/12/18 Range/Units 07:39 WBC (4.5-11.0) K/mm3 RDW (13.2-15.2) % Plt Count (140-440) K/mm3 Lymph % (Auto) (13.4-35.0) % [place] % (Auto) (0.0-7.3) % [place] # (0.0-0.8) K/mm3 Seg Neutrophils % (40.0-70.0) % Seg Neutrophils # (1.8-7.7) K/mm3 Heparin Anti-Xa Level (0.3-0.7) U.I./ml Sodium 136 L (137-145) mmol/L BUN 25 H (7-17) mg/dL Creatinine 3.4 H (0.7-1.2) mg/dL Glucose (65-100) mg/dL Laboratory Tests 03/11/18 03/11/18 03/12/18 00:03 00:03 06:10 WBC 17.1 H 12.1 H Hgb 14.0 10.9 Hct 42.4 32.5 D Plt Count 215 136 L Sodium Potassium BUN 11 Creatinine 0.8 Estimated GFR > 60 03/12/18 06:10 WBC Hgb Hct Plt Count Sodium 136 L Potassium 4.1 BUN Creatinine Estimated GFR Laboratory Tests 03/12/18 06:10 BUN 23 H Creatinine 3.1 H D Estimated GFR 16
--- NOTE | 2018-03-12 13:42 | Hem/Onc Consultation ---
History of Present Illness - Reason for Consult Consult date: 03/12/18 DVT left leg - History of Present Illness 47 yo obese female presented with left leg pain and swelling for 1 day. pain was 10 out of 10 in severity, achy, no radiation. pt had left gluteal/sacral area discomfort, went to [facility] - but could not do same due to pain. She denied any trauma, denies any recent travel. No chest pain, no shortness of breath. She was evaluated in ED and Doppler confirms acute DVT left lower ext that is extensive. s/b vascular surgeon for thrombectomy, Past History Past Medical History: No medical history, other (obese). denies: DVT Past Surgical History: (X 4) Social history: lives with family, smoking (Started nicotine patch to quit smoking. been smoking for years), full code (easily identified as he is he is). denies: IV drug use Medications and Allergies Allergies Allergy/AdvReac Type Severity Reaction Status Date / Time No Known Allergies Allergy Unverified 03/10/18 23:55 Home Medications Medication Instructions Recorded Confirmed Last Taken Type RX: No Known Home Medications [No 03/11/18 03/11/18 Unknown History Reported Home Medications] Active Meds: Active Medications Acetaminophen (Tylenol) 650 mg PO Q4H PRN PRN Reason: Pain MILD(1-3)/Fever >100.5/ROCHE Acetaminophen/Hydrocodone Bitart ([place] 7.5/325) 1 each PO Q6H PRN PRN Reason: Pain, Moderate (4-6) Acetylcysteine (Mucomyst Oral) 600 mg PO Q12HR HANNAH Stop: 03/13/18 22:01 Last Admin: 03/12/18 10:45 Dose: 600 mg Al Hydrox/Mg Hydrox/Simethicone (Alum-Mag Hydrox-Simeth [id number]/5ml) 30 ml PO Q4H PRN PRN Reason: Indigestion Apixaban (Eliquis) 10 mg PO Q12HR HANNAH; Protocol Last Admin: 03/12/18 10:45 Dose: 10 mg Sodium Chloride (Nacl 0.9% 1000 Ml) 1,000 mls @ 75 mls/hr IV DIRECT HANNAH Sodium Chloride (Nacl 0.9% 1000 Ml) 1,000 mls @ 150 mls/hr IV DIRECT HANNAH Stop: 03/13/18 23:59 Last Admin: 03/12/18 10:46 Dose: 150 mls/hr Ondansetron HCl (Zofran) 4 mg IV Q8H PRN PRN Reason: Nausea And Vomiting Sodium Chloride (Sodium Chloride Flush Syringe 10 Ml) 10 ml IV BID [facility] Last Admin: 03/12/18 10:46 Dose: 10 ml Sodium Chloride (Sodium Chloride Flush Syringe 10 Ml) 10 ml IV PRN PRN PRN Reason: LINE FLUSH Review of Systems Constitutional: no fever, no chills Ears, nose, mouth and throat: no epistaxis Cardiovascular: no chest pain, no shortness of breath Respiratory: no cough Gastrointestinal: no abdominal pain Genitourinary Female: menorrhagia Rectal: no bleeding Musculoskeletal: other (left leg pain) Integumentary: no rash Neurological: no seizures Psychiatric: no anxiety Exam - Constitutional Vitals: Last Vital Signs Temp 98.6 F 03/12/18 12:07 Pulse 93 H 03/12/18 12:07 Resp 22 03/12/18 12:07 BP 140/89 03/12/18 12:07 Pulse Ox 99 03/12/18 12:07 Pain Intensity (0-10): 1/10 (left leg) General appearance: no acute distress Performance status: 0-fully active - EENT Eyes: PERRL ENT: clear oral mucosa Lymph node exam: negative cervical, negative supraclavicular - Neck Neck: supple - Respiratory Respiratory effort: Positive: normal Respiratory: bilateral: CTA - Cardiovascular Heart Sounds: Present: S1 & S2 Extremity abnormal: edema - Gastrointestinal General gastrointestinal: Present: soft, non-tender Rectal Exam: deferred - Genitourinary Female genitourinary: Present: deferred - Neurologic Neurologic: moves all extremities Results - Labs lab Results: Laboratory Results - last 24 hr 03/11/18 03/12/18 03/12/18 06:10 06:10 06:10 WBC 12.1 H RBC 3.91 Hgb 10.9 Hct 32.5 D MCV 83 MCH 28 MCHC 34 RDW 15.9 H Plt Count 136 L Lymph % (Auto) 12.6 L [place] % (Auto) 12.2 H Eos % (Auto) 1.8 Baso % (Auto) 0.5 Lymph # 1.5 [place] # 1.5 H Eos # 0.2 Baso # 0.1 Seg Neutrophils % 72.9 H Seg Neutrophils # 8.8 H Heparin Anti-Xa Level > 2.00 H Sodium 136 L Potassium 4.1 Chloride 100.3 Carbon Dioxide 23 Anion Gap 17 BUN 23 H Creatinine 3.1 H D Estimated GFR 16 BUN/Creatinine Ratio 7 Glucose 110 H Calcium 8.5 03/12/18 07:39 WBC RBC Hgb Hct MCV MCH MCHC RDW Plt Count Lymph % (Auto) [place] % (Auto) Eos % (Auto) Baso % (Auto) Lymph # [place] # Eos # Baso # Seg Neutrophils % Seg Neutrophils # Heparin Anti-Xa Level Sodium 136 L Potassium 4.0 Chloride 99.8 Carbon Dioxide 24 Anion Gap 16 BUN 25 H Creatinine 3.4 H Estimated GFR 15 BUN/Creatinine Ratio 7 Glucose 90 Calcium 8.6 Assessment and Plan # DVT left leg s/p thrombectomy ? 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
[2018-03-13 05:21] LABS: Hematocrit 29.3 % (30.3-42.9); Hemoglobin 9.8 gm/dl (10.1-14.3); Mean Corpuscular HGB Conc 33 % (30-34); Mean Corpuscular Hemoglobin 28 pg (28-32); Mean Corpuscular Volume 83 fl (79-97); Platelet Count 142 K/mm3 (140-440); Red Blood Count 3.53 M/mm3 (3.65-5.03); Red Cell Distribution Width 15.6 % (13.2-15.2)
[2018-03-13 05:34] LABS: Calcium 8.4 mg/dL (8.4-10.2)
--- NOTE | 2018-03-13 08:35 | Progress Note ---
Assessment and Plan 1. Acute kidney injury: Likely ATN in the setting of NSAIDs and IV contrast. Creatinine increased upto 7 today. No uremic symptoms or signs today. Continue IV fluids and Mucomyst. CT abdomen was negative for any urinary obstruction. No e/o Renal or IVC obstruction. Renal prognosis is guarded. 2. Extensive DVT. 3. Anemia. Subjective Date of service: 03/13/18 Interval history: Patient is doing ok. Appetite is good. No N or V. Objective - Vital Signs Vital signs: Vital Signs - 12hr 03/12/18 03/13/18 23:59 06:11 Temperature 98.0 F 98.8 F Pulse Rate 94 H 92 H Respiratory 18 16 Rate Blood Pressure 136/79 122/63 O2 Sat by Pulse 98 97 Oximetry - General Appearance General appearance: well-developed, well-nourished, appears stated age, obese, other (not in distress) EENT: ATNC, PERRL, mucous membranes moist, hearing intact, vision intact Neck: supple Respiratory: Present: Clear to Ascultation Cardiology: regular, S1S2, no murmurs Gastrointestinal: normoactive bowel sounds, no tenderness, no distended Integumentary: no rash, warm and dry Neurologic: no focal deficit, no asterixis, alert and oriented x3 Musculoskeletal: other (no edema) Psychiatric: cooperative - Lab 03/13/18 04:45 03/13/18 04:45 Most recent lab results Calcium 8.4 mg/dL (8.4-10.2) 03/13/18 04:45
[2018-03-13] MEDS ORDERED: COLACE PO PRN (09:54)
[2018-03-13] MEDS: ELIQUIS PO SCH (10:07)
[2018-03-13] MEDS: SODIUM CHLORIDE FLUSH SYRINGE 10 ML IV SCH ×2 (10:08→23:10)
[2018-03-13] MEDS ORDERED: MIRALAX 3350 PO ONE (11:00)
[2018-03-13] MEDS: MUCOMYST ORAL PO SCH ×2 (12:48→23:10)
--- NOTE | 2018-03-13 13:08 | Hem/Onc Progress Note ---
Assessment and Plan Generic Name Dose Route Start Last Admin Trade Name Freq PRN Reason Stop Dose Admin Acetaminophen 650 mg 03/11/18 12:58 Tylenol PO Q4H PRN Pain MILD(1-3)/Fever >100.5/ROCHE Acetaminophen/Hydrocodone Bitart 1 each 03/11/18 16:56 03/13/18 15:42 [place] 7.5/325 PO 1 each Q6H PRN Administration Pain, Moderate (4-6) Acetylcysteine 600 mg 03/12/18 10:00 03/13/18 12:48 Mucomyst Oral PO 600 mg Q12HR HANNAH Administration Al Hydrox/Mg Hydrox/Simethicone 30 ml 03/11/18 12:58 Alum-Mag Hydrox-Simeth [id number]/5ml PO Q4H PRN Indigestion Apixaban 10 mg 03/13/18 22:00 Eliquis PO Q12HR HANNAH Protocol Docusate Sodium 100 mg 03/13/18 09:54 Colace PO BID PRN Constipation Sodium Chloride 1,000 mls @ 75 mls/hr 03/12/18 09:00 Nacl 0.9% 1000 Ml IV DIRECT HANNAH Sodium Chloride 1,000 mls @ 150 mls/hr 03/12/18 10:00 03/13/18 15:43 Nacl 0.9% 1000 Ml IV 03/13/18 23:59 150 mls/hr DIRECT HANNAH Administration Ondansetron HCl 4 mg 03/11/18 12:58 Zofran IV Q8H PRN Nausea And Vomiting Sodium Chloride 10 ml 03/11/18 22:00 03/13/18 10:08 Sodium Chloride Flush Syringe 10 Ml IV 10 ml BID HANNAH Administration Sodium Chloride 10 ml 03/11/18 12:58 Sodium Chloride Flush Syringe 10 Ml IV PRN PRN LINE FLUSH # DVT left leg s/p thrombectomy ? 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 - hospitalist following - nephrology following the dose of eliquis would need titration with industrial chemicals supervisor vs heparin for now - Patient Problems (1) Deep vein thrombosis Onset Date: ~03/11/18 Current Visit: Yes Status: Acute Qualifiers: DVT location: lower extremity Affected thrombotic vein of extremity: unspecified lower extremity proximal vein Chronicity: acute Laterality: left Qualified Code(s): I82.4Y2 - Acute embolism and thrombosis of unspecified deep veins of left proximal lower extremity Subjective Date of service: 03/13/18 Principal diagnosis: DVT left leg Interval history: elevated industrial chemicals supervisor - nephrology following leg pain better Objective - Constitutional Vitals: Last Vital Signs Temp 98.8 F 03/13/18 06:11 Pulse 92 H 03/13/18 06:11 Resp 16 03/13/18 06:11 BP 122/63 03/13/18 06:11 Pulse Ox 97 03/13/18 06:11 Pain Intensity (0-10): denies any pain General appearance: no acute distress Performance status: 1-light work, ambulatory - EENT Eyes: PERRL ENT: clear oral mucosa Lymph node exam: negative cervical, negative supraclavicular - Neck Neck: supple - Respiratory Respiratory effort: Positive: normal Respiratory: bilateral: CTA - Cardiovascular Heart Sounds: Present: S1 & S2 Extremity abnormal: edema - Gastrointestinal General gastrointestinal: Present: soft, non-tender Rectal Exam: deferred - Genitourinary Female genitourinary: Present: deferred - Integumentary Integumentary: warm - Musculoskeletal Musculoskeletal: strength equal bilaterally - Neurologic Neurologic: moves all extremities - Psychiatric Psychiatric: appropriate mood/affect - Allied health notes Allied health notes reviewed: nursing - Labs Lab Results: Laboratory Results - last 24 hr 03/13/18 03/13/18 04:45 04:45 WBC 11.1 H RBC 3.53 L Hgb 9.8 L Hct 29.3 L MCV 83 MCH 28 MCHC 33 RDW 15.6 H Plt Count 142 Sodium 138 Potassium 4.0 Chloride 101.8 Carbon Dioxide 22 Anion Gap 18 BUN 40 H Creatinine 7.0 H D Estimated GFR 6 BUN/Creatinine Ratio 6 Glucose 90 Calcium 8.4 Total Creatine Kinase 339 H
--- NOTE | 2018-03-13 13:47 | Progress Note ---
Assessment and Plan Assessment and plan: Acute DVT left lower ext extensive. Admitted to med/surg Discussed with Dr. Horowitz, [facility] surg . had thrombectomy, angioplasty and stent placement 03/11 [place] on Eliquis, but will dc because of KETTY. start heparin tomorrow since given Eliquis today. Acute kidney injury, due to contrast nephropathy, worse, Cr 7.0 Discussed with Nephrology iv fluids, mucomyst Obesity. Discussed diet and exercise to lose weight Smoking cessation counseling done.'She states she has been using patch to quit smoking Full code status History Interval history: Less pain left leg, No fever Hospitalist Physical - Physical exam Narrative exam: GEN:Not in acute distress, lying in bed,obese HEENT: Normocephalic, atraumatic, Neck: supple, No JVD Lungs: Clear to auscultaion bilaterally, no crackles Heart:S1 and S2 reg, no murmurs, rubs or gallop Abd:soft, non-tender, non-distended, Normal bowel sounds Ext: Left leg edema, tenderness, no clubbing or cyanosis Neuro: Awake, alert, oriented X 3, Moves all extremities - Constitutional Vitals: Temp Pulse Resp BP Pulse Ox 98.5 F 94 H 20 131/82 100 03/13/18 11:18 03/13/18 11:18 03/13/18 11:18 03/13/18 11:18 03/13/18 11:18 General appearance: Present: obese Results - Labs CBC & Chem 7: 03/13/18 04:45 03/13/18 04:45 Labs: Laboratory Last Values WBC 11.1 K/mm3 (4.5-11.0) H 03/13/18 04:45 RBC 3.53 M/mm3 (3.65-5.03) L 03/13/18 04:45 Hgb 9.8 gm/dl (10.1-14.3) L 03/13/18 04:45 Hct 29.3 % (30.3-42.9) L 03/13/18 04:45 MCV 83 fl (79-97) 03/13/18 04:45 MCH 28 pg (28-32) 03/13/18 04:45 MCHC 33 % (30-34) 03/13/18 04:45 RDW 15.6 % (13.2-15.2) H 03/13/18 04:45 Plt Count 142 K/mm3 (140-440) 03/13/18 04:45 Lymph % (Auto) 12.6 % (13.4-35.0) L 03/12/18 06:10 [place] % (Auto) 12.2 % (0.0-7.3) H 03/12/18 06:10 Eos % (Auto) 1.8 % (0.0-4.3) 03/12/18 06:10 Baso % (Auto) 0.5 % (0.0-1.8) 03/12/18 06:10 Lymph # 1.5 K/mm3 (1.2-5.4) 03/12/18 06:10 [place] # 1.5 K/mm3 (0.0-0.8) H 03/12/18 06:10 Eos # 0.2 K/mm3 (0.0-0.4) 03/12/18 06:10 Baso # 0.1 K/mm3 (0.0-0.1) 03/12/18 06:10 Seg Neutrophils % 72.9 % (40.0-70.0) H 03/12/18 06:10 Seg Neutrophils # 8.8 K/mm3 (1.8-7.7) H 03/12/18 06:10 PT 14.9 Sec. (12.2-14.9) 03/11/18 10:04 INR 1.11 (0.87-1.13) 03/11/18 10:04 APTT 20.2 Sec. (24.2-36.6) L 03/11/18 10:04 D-Dimer 7951.75 ng/mlDDU (0-234) H 03/11/18 00:03 Heparin Anti-Xa Level > 2.00 U.I./ml (0.3-0.7) H 03/11/18 06:10 Sodium 138 mmol/L (137-145) 03/13/18 04:45 Potassium 4.0 mmol/L (3.6-5.0) 03/13/18 04:45 Chloride 101.8 mmol/L (98-107) 03/13/18 04:45 Carbon Dioxide 22 mmol/L (22-30) 03/13/18 04:45 Anion Gap 18 mmol/L 03/13/18 04:45 BUN 40 mg/dL (7-17) H 03/13/18 04:45 Creatinine 7.0 mg/dL (0.7-1.2) H D 03/13/18 04:45 Estimated GFR 6 ml/min 03/13/18 04:45 BUN/Creatinine Ratio 6 % 03/13/18 04:45 Glucose 90 mg/dL (65-100) 03/13/18 04:45 Lactic Acid 1.70 mmol/L (0.7-2.0) 03/11/18 07:11 Calcium 8.4 mg/dL (8.4-10.2) 03/13/18 04:45 Total Bilirubin 0.80 mg/dL (0.1-1.2) 03/11/18 00:03 AST 17 units/L (5-40) 03/11/18 00:03 ALT 16 units/L (7-56) 03/11/18 00:03 Alkaline Phosphatase 94 units/L (35-129) 03/11/18 00:03 Total Creatine Kinase 339 units/L (30-135) H 03/13/18 04:45 Total Protein 7.7 g/dL (6.3-8.2) 03/11/18 00:03 Albumin 4.6 g/dL (3.9-5) 03/11/18 00:03 Albumin/Globulin Ratio 1.5 % 03/11/18 00:03 Urine Color Yellow (Yellow) 03/11/18 10:07 Urine Turbidity Slightly-cloudy (Clear) 03/11/18 10:07 Urine pH 5.0 (5.0-7.0) 03/11/18 10:07 Ur Specific [place] 1.060 (1.003-1.030) H 03/11/18 10:07 Urine Protein 30 mg/dl mg/dL (Negative) 03/11/18 10:07 Urine Glucose (UA) Neg mg/dL (Negative) 03/11/18 10:07 Urine Ketones Neg mg/dL (Negative) 03/11/18 10:07 Urine Blood Neg (Negative) 03/11/18 10:07 Urine Nitrite Neg (Negative) 03/11/18 10:07 Urine Bilirubin Neg (Negative) 03/11/18 10:07 Urine Urobilinogen < 2.0 mg/dL (<2.0) 03/11/18 10:07 Ur Leukocyte Esterase Neg (Negative) 03/11/18 10:07 Urine WBC (Auto) 1.0 /HPF (0.0-6.0) 03/11/18 10:07 Urine RBC (Auto) 9.0 /HPF (0.0-6.0) 03/11/18 10:07 U Epithel Cells (Auto) 20.0 /HPF (0-13.0) H 03/11/18 10:07 Urine Bacteria (Auto) 1+ /HPF (Negative) 03/11/18 10:07 Urine Mucus 3+ /HPF 03/11/18 10:07 Urine HCG, Qual Negative (Negative) 03/11/18 10:07
--- NOTE | 2018-03-13 15:26 | Query- Renal Failure ---
Dear ___Cristian Date:___03/13/18 Supervisor [employer]/CDS:___sandie Phone#:[phone] Exercise your independent professional judgment when responding to query. Questions asked do not imply a particular answer is desired or expected. We greatly appreciate your clarification on this issue. Clinical Documentation States: Patient is 47 yo obese female presents with left leg pain and swelling for 1 day. pain is 10 out of 10 in severity, achy, no radiation. pain is worse on movement, though present at rest. She also complained of swelling leg for 1 day. She denied any trauma, denies any recent travel. No chest pain, no shortness of breath. She was evaluated in ED and Doppler confirms acute DVT left lower ext that is extensive. patient already evaluated by vascular surgeon. She is for thrombectomy, thrombolysis and possible angioplasty Assessment and plan: Acute DVT left lower ext extensive Acute kidney injury, due to contrast nephropathy, worse, Cr 7.0 Clinical Findings Show: 03/11/18 03/12/1803/13 Creatinine 0.8 3.4 7.0 Bun/Cr ratio 14 7 6 Please clarify if you mean: Acute Renal Failure with or due to: [ ] Tubular Necrosis [ ] Medullary Necrosis [ ] Vasomotor Nephropathy [ ] Shock Kidney [ ] Tubular Nephrosis [ ] Renal Tubular Stasis [ ] Cortical Necrosis [ ] Acute Renal Failure (unspecified) [ ] Lower Tubular Nephrosis [ ] Other: [ ] Not Applicable Present on Admission: [ ] Yes (Y) [ ] Clinically undeterminable (W) [ ] No (N) Please also document response in your Progress Notes and/or Discharge Summary and indicate if the condition was present on admission. ACE
[2018-03-13] MEDS: NORCO 7.5/325 PO PRN ×2 (15:42→23:09)
[2018-03-13] MEDS: NACL 0.9% 1000 ML 1,000 ML IV SCH ×2 (15:43→23:10)
--- NOTE | 2018-03-13 16:57 | Vascular Lab Report ---
Left Lower Extremity Venous Duplex Study: Reason for Exam: Pain and swelling of the left lower extremity. Comments on the Right: A limited duplex study was done of the proximal veins of the right lower extremity. All veins visualized are freely compressible without evidence of internal echogenicity. Flow is spontaneous and phasic throughout. No evidence of acute or chronic thrombus is seen in any of the vessels visualized. Comments on the Left: Extensive acute deep venous thrombosis is seen extending from the inguinal ligament to the tibial veins. Veins involved include the common femoral, profunda femoris, superficial femoral, popliteal, and posterior tibial. The remainder of the veins are freely compressible without evidence of internal echogenicity. Spontaneous and phasic flow is lost proximally. Impression: Extensive acute deep venous thrombosis of the left lower extremity.
--- NOTE | 2018-03-13 19:25 | Progress Note ---
Assessment and Plan Pt presented with significant LLE dvt. S/p venous thrombectomy and bilat venous stent placement due to May-Thurner syndrome. She has KETTY with worsening renal function. Hydration and mucomyst per nephrology. Eliquis given this am (10am), then held with concerns about KETTY. Eliquis does not need to be adjusted due to renal fxn. Will restart Eliquis. Holding anticoagulation could result in reaccumilation of thrombus in the lower ext. Continue to follow. - Patient Problems (1) May-Thurner syndrome Current Visit: Yes Status: Acute (2) Acute deep vein thrombosis (DVT) of left iliofemoral vein Current Visit: Yes Status: Acute (3) ARF (acute renal failure) Current Visit: Yes Status: Acute Subjective Date of service: 03/13/18 Principal diagnosis: DVT left leg Interval history: Pt awake and alert. She c/o of right back and flank pain. Objective - Constitutional Vitals: Vital Signs - 12hr 03/13/18 03/13/18 11:18 18:10 Temperature 98.5 F 98.6 F Pulse Rate 94 H 87 Respiratory 20 22 Rate Blood Pressure 131/82 136/65 O2 Sat by Pulse 100 96 Oximetry General appearance: Present: no acute distress, obese - EENT Eyes: EOM intact ENT: hearing intact - Respiratory Respiratory effort: normal Extremities: no ischemia, normal temperature, abnormal (right groin, and bilat pop incisions intact. Bandages removed. No erythema or drainage appreciated.) - Neurologic Neurologic: no focal deficits - Psychiatric Psychiatric: appropriate mood/affect, intact judgment & insight, cooperative - Labs CBC & Chem 7: 03/13/18 04:45 03/13/18 04:45 Labs: Abnormal lab results 03/13/18 03/13/18 Range/Units 04:45 04:45 WBC 11.1 H (4.5-11.0) K/mm3 RBC 3.53 L (3.65-5.03) M/mm3 Hgb 9.8 L (10.1-14.3) gm/dl Hct 29.3 L (30.3-42.9) % RDW 15.6 H (13.2-15.2) % BUN 40 H (7-17) mg/dL Creatinine 7.0 H D (0.7-1.2) mg/dL Total Creatine Kinase 339 H (30-135) units/L
[2018-03-13] MEDS ORDERED: ELIQUIS PO SCH (22:00)
[2018-03-14 08:33] LABS: Calcium 7.8 mg/dL (8.4-10.2)
--- NOTE | 2018-03-14 10:26 | Progress Note ---
Assessment and Plan 1. Acute kidney injury: Likely ATN in the setting of NSAIDs and IV contrast. Renal function continue to decline. No uremic symptoms or signs today. Continue IV fluids. Repeat Urine studies and Renal US. No e/o Renal or IVC obstruction. Renal prognosis is guarded. 2. Extensive DVT. 3. Anemia. Subjective Date of service: 03/14/18 Principal diagnosis: DVT left leg Interval history: Patient is doing ok. Appetite is good. Objective - Vital Signs Vital signs: Vital Signs - 12hr 03/14/18 00:24 Temperature 98.0 F Pulse Rate 86 Respiratory 18 Rate Blood Pressure 134/75 O2 Sat by Pulse 100 Oximetry - General Appearance General appearance: well-developed, well-nourished, appears stated age, obese, other (not in distress) EENT: ATNC, PERRL, mucous membranes moist, hearing intact, vision intact Neck: supple Respiratory: Present: Clear to Ascultation Cardiology: regular, S1S2, no murmurs Gastrointestinal: normoactive bowel sounds, no tenderness, no distended Integumentary: no rash, warm and dry Neurologic: no focal deficit, no asterixis, alert and oriented x3 Musculoskeletal: other (no edema) Psychiatric: cooperative - Lab 03/14/18 09:44 03/14/18 07:31 Most recent lab results Calcium 7.8 mg/dL (8.4-10.2) L 03/14/18 07:31
[2018-03-14] MEDS ORDERED: HEPARIN/ 0.45% NACL-25,000 UNIT/500 ML 25,000 UNIT/500 ML BAG IV SCH (10:30)
[2018-03-14 10:37] LABS: Hematocrit 28.4 % (30.3-42.9); Hemoglobin 9.3 gm/dl (10.1-14.3)
[2018-03-14 10:58] LABS: INR 1.39 (0.87-1.13)
[2018-03-14 10:59] LABS: Partial Thromboplastin Time 35.6 Sec. (24.2-36.6)
[2018-03-14] MEDS: ELIQUIS PO SCH ×2 (11:36→23:30)
[2018-03-14] MEDS: MUCOMYST ORAL PO SCH ×2 (11:36→23:29)
[2018-03-14] MEDS: SODIUM CHLORIDE FLUSH SYRINGE 10 ML IV SCH ×2 (11:37→23:32)
[2018-03-14] MEDS: NACL 0.9% 1000 ML 1,000 ML IV SCH ×2 (11:42→23:32)
--- NOTE | 2018-03-14 13:53 | Hem/Onc Progress Note ---
Assessment and Plan # DVT left leg s/p thrombectomy ? 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 - hospitalist following - nephrology following 03/14 - d/w dr jones reg eliquis dosage - Patient Problems (1) Deep vein thrombosis Onset Date: ~03/11/18 Current Visit: Yes Status: Acute Qualifiers: DVT location: lower extremity Affected thrombotic vein of extremity: unspecified lower extremity proximal vein Chronicity: acute Laterality: left Qualified Code(s): I82.4Y2 - Acute embolism and thrombosis of unspecified deep veins of left proximal lower extremity Subjective Date of service: 03/14/18 Principal diagnosis: left leg DVT Interval history: elevated scientific specialist - nephrology following leg swelling and pain better Objective - Constitutional Vitals: Last Vital Signs Temp 98.6 F 03/14/18 11:47 Pulse 102 H 03/14/18 11:47 Resp 22 03/14/18 11:47 BP 146/76 03/14/18 11:47 Pulse Ox 99 03/14/18 11:47 Pain Intensity (0-10): denies any pain General appearance: no acute distress Performance status: 2- selfcare, ambulatory - EENT Eyes: PERRL ENT: clear oral mucosa Lymph node exam: negative cervical, negative supraclavicular - Neck Neck: supple - Respiratory Respiratory effort: Positive: normal Respiratory: bilateral: CTA - Cardiovascular Heart Sounds: Present: S1 & S2 Extremity abnormal: edema - Gastrointestinal General gastrointestinal: Present: soft, non-tender Rectal Exam: deferred - Genitourinary Female genitourinary: Present: deferred - Integumentary Integumentary: warm - Musculoskeletal Musculoskeletal: strength equal bilaterally - Neurologic Neurologic: moves all extremities - Psychiatric Psychiatric: appropriate mood/affect - Allied health notes Allied health notes reviewed: nursing - Labs Lab Results: Laboratory Results - last 24 hr 03/14/18 03/14/18 03/14/18 07:31 09:44 09:44 Hgb 9.3 L Hct 28.4 L Plt Count 150 PT 17.6 H INR 1.39 H APTT 35.6 Sodium 138 Potassium 4.3 Chloride 105.9 Carbon Dioxide 18 L Anion Gap 18 BUN 47 H Creatinine 9.9 H Estimated GFR 4 BUN/Creatinine Ratio 5 Glucose 80 Calcium 7.8 L
--- NOTE | 2018-03-14 15:59 | Ultrasound Report ---
FINAL REPORT EXAM: US RENAL BILAT HISTORY: Acute renal failure. TECHNIQUE: Ultrasound examination of the kidneys PRIORS: None. FINDINGS: Visualized right kidney: 11.8 x 5.7 x 5.4 cm. Visualized left kidney: 14.8 x 7.1 x 6.7 cm. Renal cortical thickness 12 mm on the right and 18 mm on the left. Slightly echogenic renal parenchyma bilaterally, more on the left, may correspond with history of medical renal disease. Focal lesion: None visible Calculus: None visible Hydronephrosis: None Perinephric fluid: None Urinary bladder: Not visualized. IMPRESSION: Diffusely echogenic renal parenchyma may correspond with history of medical renal disease
[2018-03-14] MEDS: TYLENOL PO PRN (17:40)
--- NOTE | 2018-03-14 18:01 | Progress Note ---
Assessment and Plan Pt s/p thrombectomy/thrombolysis of LLE DVT/May thurner syndrome S/p venous stenting and IVC filter insertion. On anticoagulation with Eliquis. Cr continues to increase. Nephrology following. Continue supportive care, monitoring for renal recovery. - Patient Problems (1) May-Thurner syndrome Current Visit: Yes Status: Acute (2) Acute deep vein thrombosis (DVT) of left iliofemoral vein Current Visit: Yes Status: Acute (3) ARF (acute renal failure) Current Visit: Yes Status: Acute Subjective Date of service: 03/14/18 Principal diagnosis: left leg DVT Interval history: Pt awake and alert. Without complaint at present. OOB ambulating earlier. Leg pain much improved. Improved UOP earlier today. Objective - Constitutional Vitals: Vital Signs - 12hr 03/14/18 11:47 Temperature 98.6 F Pulse Rate 102 H Respiratory 22 Rate Blood Pressure 146/76 O2 Sat by Pulse 99 Oximetry General appearance: Present: no acute distress - EENT Eyes: EOM intact ENT: hearing intact - Respiratory Respiratory effort: normal Extremities: no ischemia, normal temperature - Neurologic Neurologic: no focal deficits - Psychiatric Psychiatric: appropriate mood/affect, intact judgment & insight, cooperative - Labs CBC & Chem 7: 03/14/18 09:44 03/14/18 07:31 Labs: Abnormal lab results 03/14/18 03/14/18 03/14/18 Range/Units 07:31 09:44 09:44 Hgb 9.3 L (10.1-14.3) gm/dl Hct 28.4 L (30.3-42.9) % PT 17.6 H (12.2-14.9) Sec. INR 1.39 H (0.87-1.13) Carbon Dioxide 18 L (22-30) mmol/L BUN 47 H (7-17) mg/dL Creatinine 9.9 H (0.7-1.2) mg/dL Calcium 7.8 L (8.4-10.2) mg/dL
[2018-03-14 18:19] LABS: Bilirubin,Urine NEG (Negative); Blood,Urine LG (Negative); Color,Urine Yellow (Yellow); Urobilinogen,Urine < 2.0 mg/dL (<2.0)
[2018-03-14 18:20] LABS: Creatinine,Urine 67.5 mg/dL (0.1-20.0)
--- NOTE | 2018-03-14 19:21 | Progress Note ---
Assessment and Plan Assessment and plan: Acute DVT left lower ext extensive. Admitted to med/surg Discussed with Dr. Horowitz, [facility] surg . had thrombectomy, angioplasty and stent placement 03/11 [place] on Eliquis, but will dc because of KETTY. start heparin tomorrow since given Eliquis today. Acute kidney injury, due to contrast nephropathy, worse, Cr 9.9 today Discussed with Nephrology iv fluids, Obesity. Discussed diet and exercise to lose weight Smoking cessation counseling done.'She states she has been using patch to quit smoking Full code status History Interval history: Less pain left leg, No fever Hospitalist Physical - Physical exam Narrative exam: GEN:Not in acute distress, lying in bed,obese HEENT: Normocephalic, atraumatic, Neck: supple, No JVD Lungs: Clear to auscultaion bilaterally, no crackles Heart:S1 and S2 reg, no murmurs, rubs or gallop Abd:soft, non-tender, non-distended, Normal bowel sounds Ext: Left leg edema, tenderness, no clubbing or cyanosis Neuro: Awake, alert, oriented X 3, Moves all extremities - Constitutional Vitals: Temp Pulse Resp BP Pulse Ox 99.3 F 100 H 20 160/77 100 03/14/18 17:49 03/14/18 17:49 03/14/18 17:49 03/14/18 17:49 03/14/18 17:49 General appearance: Present: no acute distress Results - Labs CBC & Chem 7: 03/14/18 09:44 03/14/18 07:31 Labs: Laboratory Last Values WBC 11.1 K/mm3 (4.5-11.0) H 03/13/18 04:45 RBC 3.53 M/mm3 (3.65-5.03) L 03/13/18 04:45 Hgb 9.3 gm/dl (10.1-14.3) L 03/14/18 09:44 Hct 28.4 % (30.3-42.9) L 03/14/18 09:44 MCV 83 fl (79-97) 03/13/18 04:45 MCH 28 pg (28-32) 03/13/18 04:45 MCHC 33 % (30-34) 03/13/18 04:45 RDW 15.6 % (13.2-15.2) H 03/13/18 04:45 Plt Count 150 K/mm3 (140-440) 03/14/18 09:44 Lymph % (Auto) 12.6 % (13.4-35.0) L 03/12/18 06:10 [place] % (Auto) 12.2 % (0.0-7.3) H 03/12/18 06:10 Eos % (Auto) 1.8 % (0.0-4.3) 03/12/18 06:10 Baso % (Auto) 0.5 % (0.0-1.8) 03/12/18 06:10 Lymph # 1.5 K/mm3 (1.2-5.4) 03/12/18 06:10 [place] # 1.5 K/mm3 (0.0-0.8) H 03/12/18 06:10 Eos # 0.2 K/mm3 (0.0-0.4) 03/12/18 06:10 Baso # 0.1 K/mm3 (0.0-0.1) 03/12/18 06:10 Seg Neutrophils % 72.9 % (40.0-70.0) H 03/12/18 06:10 Seg Neutrophils # 8.8 K/mm3 (1.8-7.7) H 03/12/18 06:10 PT 17.6 Sec. (12.2-14.9) H 03/14/18 09:44 INR 1.39 (0.87-1.13) H 03/14/18 09:44 APTT 35.6 Sec. (24.2-36.6) 03/14/18 09:44 D-Dimer 7951.75 ng/mlDDU (0-234) H 03/11/18 00:03 Heparin Anti-Xa Level > 2.00 U.I./ml (0.3-0.7) H 03/11/18 06:10 Sodium 138 mmol/L (137-145) 03/14/18 07:31 Potassium 4.3 mmol/L (3.6-5.0) 03/14/18 07:31 Chloride 105.9 mmol/L (98-107) 03/14/18 07:31 Carbon Dioxide 18 mmol/L (22-30) L 03/14/18 07:31 Anion Gap 18 mmol/L 03/14/18 07:31 BUN 47 mg/dL (7-17) H 03/14/18 07:31 Creatinine 9.9 mg/dL (0.7-1.2) H 03/14/18 07:31 Estimated GFR 4 ml/min 03/14/18 07:31 BUN/Creatinine Ratio 5 % 03/14/18 07:31 Glucose 80 mg/dL (65-100) 03/14/18 07:31 Lactic Acid 1.70 mmol/L (0.7-2.0) 03/11/18 07:11 Calcium 7.8 mg/dL (8.4-10.2) L 03/14/18 07:31 Total Bilirubin 0.80 mg/dL (0.1-1.2) 03/11/18 00:03 AST 17 units/L (5-40) 03/11/18 00:03 ALT 16 units/L (7-56) 03/11/18 00:03 Alkaline Phosphatase 94 units/L (35-129) 03/11/18 00:03 Total Creatine Kinase 339 units/L (30-135) H 03/13/18 04:45 Total Protein 7.7 g/dL (6.3-8.2) 03/11/18 00:03 Albumin 4.6 g/dL (3.9-5) 03/11/18 00:03 Albumin/Globulin Ratio 1.5 % 03/11/18 00:03 Urine Color Yellow (Yellow) 03/14/18 17:43 Urine Turbidity Cloudy (Clear) 03/14/18 17:43 Urine pH 6.0 (5.0-7.0) 03/14/18 17:43 Ur Specific [place] 1.012 (1.003-1.030) 03/14/18 17:43 Urine Protein 100 mg/dl mg/dL (Negative) 03/14/18 17:43 Urine Glucose (UA) 50 mg/dL (Negative) 03/14/18 17:43 Urine Ketones Neg mg/dL (Negative) 03/14/18 17:43 Urine Blood Lg (Negative) 03/14/18 17:43 Urine Nitrite Neg (Negative) 03/14/18 17:43 Urine Bilirubin Neg (Negative) 03/14/18 17:43 Urine Urobilinogen < 2.0 mg/dL (<2.0) 03/14/18 17:43 Ur Leukocyte Esterase Mod (Negative) 03/14/18 17:43 Urine WBC (Auto) 66.0 /HPF (0.0-6.0) H 03/14/18 17:43 Urine RBC (Auto) 9.0 /HPF (0.0-6.0) 03/14/18 17:43 U Epithel Cells (Auto) 45.0 /HPF (0-13.0) H 03/14/18 17:43 Urine Bacteria (Auto) 1+ /HPF (Negative) 03/11/18 10:07 Urine WBC Clumps 2+ /HPF 03/14/18 17:43 Urine Mucus 3+ /HPF 03/11/18 10:07 Urine Yeast (Budding) 1+ /HPF 03/14/18 17:43 Urine Creatinine 67.5 mg/dL (0.1-20.0) H 03/14/18 17:43 Urine Sodium 79 mmol/L 03/14/18 17:43 Urine HCG, Qual Negative (Negative) 03/11/18 10:07
--- NOTE | 2018-03-15 08:57 | Progress Note ---
Assessment and Plan 1. Acute kidney injury: Likely ATN in the setting of NSAIDs and IV contrast. Renal function continue to decline. Continue IV fluids. No e/o Renal vein or IVC obstruction. Symptoms could be due to uremia. Explained patient that she needs hemodialysis due to worsening renal function. She refused and wants to wait till saturday. Renal prognosis is guarded. Monitor. 2. Extensive DVT. 3. Anemia. Subjective Date of service: 03/15/18 Principal diagnosis: left leg DVT Interval history: Patient was seen and examined at the bedside. C/o N & V since last night. Objective - Vital Signs Vital signs: Vital Signs - 12hr 03/14/18 03/15/18 22:00 00:04 Temperature 97.8 F Respiratory 16 18 Rate Blood Pressure 142/73 - General Appearance General appearance: well-developed, well-nourished, appears stated age, obese, other (not in distress) EENT: ATNC, PERRL, mucous membranes moist, hearing intact, vision intact Neck: supple Respiratory: Present: Clear to Ascultation. Absent: Rales, Ronchi Cardiology: regular, normal heart rate, S1S2, other (no rub) Gastrointestinal: normoactive bowel sounds, no tenderness, no distended, obese Integumentary: no rash, warm and dry Neurologic: no focal deficit, no asterixis Musculoskeletal: other (no edema) Psychiatric: cooperative - Lab 03/14/18 09:44 03/15/18 04:57 Most recent lab results Calcium 8.0 mg/dL (8.4-10.2) L 03/15/18 04:57 Phosphorus 3.90 mg/dL (2.5-4.5) 03/15/18 04:57 Urine Creatinine 67.5 mg/dL (0.1-20.0) H 03/14/18 17:43 Urine Sodium 79 mmol/L 03/14/18 17:43
[2018-03-15] MEDS: ELIQUIS PO SCH ×2 (10:05→22:44)
[2018-03-15] MEDS: LEVAQUIN 250MG/50ML 250 MG/50 ML BAG IV SCH (10:05)
[2018-03-15] MEDS: SODIUM CHLORIDE FLUSH SYRINGE 10 ML IV SCH (10:09)
--- NOTE | 2018-03-15 11:37 | Progress Note ---
Assessment and Plan Assessment and plan: Acute DVT left lower ext extensive. Admitted to med/surg. had thrombectomy, angioplasty and stent placement 03/11 Continue Eliquis. Acute kidney injury, due to contrast nephropathy, worse, Cr 12.2 today Discussed with Nephrology Cont iv fluids, No indication for dialysis yet. Obesity. Discussed diet and exercise to lose weight Smoking cessation counseling done.'She states she has been using patch to quit smoking Full code status History Interval history: Less pain left leg, No fever Hospitalist Physical - Physical exam Narrative exam: GEN:Not in acute distress, lying in bed,obese HEENT: Normocephalic, atraumatic, Neck: supple, No JVD Lungs: Clear to auscultaion bilaterally, no crackles Heart:S1 and S2 reg, no murmurs, rubs or gallop Abd:soft, non-tender, non-distended, Normal bowel sounds Ext: Left leg edema, tenderness, no clubbing or cyanosis Neuro: Awake, alert, oriented X 3, Moves all extremities - Constitutional Vitals: Temp Pulse Resp BP Pulse Ox 97.8 F 100 H 18 142/73 100 03/15/18 00:04 03/14/18 17:49 03/15/18 00:04 03/15/18 00:04 03/14/18 17:49 General appearance: Present: no acute distress Results - Labs CBC & Chem 7: 03/14/18 09:44 03/15/18 04:57 Labs: Laboratory Last Values WBC 11.1 K/mm3 (4.5-11.0) H 03/13/18 04:45 RBC 3.53 M/mm3 (3.65-5.03) L 03/13/18 04:45 Hgb 9.3 gm/dl (10.1-14.3) L 03/14/18 09:44 Hct 28.4 % (30.3-42.9) L 03/14/18 09:44 MCV 83 fl (79-97) 03/13/18 04:45 MCH 28 pg (28-32) 03/13/18 04:45 MCHC 33 % (30-34) 03/13/18 04:45 RDW 15.6 % (13.2-15.2) H 03/13/18 04:45 Plt Count 150 K/mm3 (140-440) 03/14/18 09:44 Lymph % (Auto) 12.6 % (13.4-35.0) L 03/12/18 06:10 [place] % (Auto) 12.2 % (0.0-7.3) H 03/12/18 06:10 Eos % (Auto) 1.8 % (0.0-4.3) 03/12/18 06:10 Baso % (Auto) 0.5 % (0.0-1.8) 03/12/18 06:10 Lymph # 1.5 K/mm3 (1.2-5.4) 03/12/18 06:10 [place] # 1.5 K/mm3 (0.0-0.8) H 03/12/18 06:10 Eos # 0.2 K/mm3 (0.0-0.4) 03/12/18 06:10 Baso # 0.1 K/mm3 (0.0-0.1) 03/12/18 06:10 Seg Neutrophils % 72.9 % (40.0-70.0) H 03/12/18 06:10 Seg Neutrophils # 8.8 K/mm3 (1.8-7.7) H 03/12/18 06:10 PT 17.6 Sec. (12.2-14.9) H 03/14/18 09:44 INR 1.39 (0.87-1.13) H 03/14/18 09:44 APTT 35.6 Sec. (24.2-36.6) 03/14/18 09:44 D-Dimer 7951.75 ng/mlDDU (0-234) H 03/11/18 00:03 Heparin Anti-Xa Level > 2.00 U.I./ml (0.3-0.7) H 03/11/18 06:10 Sodium 137 mmol/L (137-145) 03/15/18 04:57 Potassium 4.0 mmol/L (3.6-5.0) 03/15/18 04:57 Chloride 104.4 mmol/L (98-107) 03/15/18 04:57 Carbon Dioxide 18 mmol/L (22-30) L 03/15/18 04:57 Anion Gap 19 mmol/L 03/15/18 04:57 BUN 54 mg/dL (7-17) H 03/15/18 04:57 Creatinine 12.2 mg/dL (0.7-1.2) H 03/15/18 04:57 Estimated GFR 3 ml/min 03/15/18 04:57 BUN/Creatinine Ratio 4 % 03/15/18 04:57 Glucose 79 mg/dL (65-100) 03/15/18 04:57 Lactic Acid 1.70 mmol/L (0.7-2.0) 03/11/18 07:11 Calcium 8.0 mg/dL (8.4-10.2) L 03/15/18 04:57 Phosphorus 3.90 mg/dL (2.5-4.5) 03/15/18 04:57 Total Bilirubin 0.80 mg/dL (0.1-1.2) 03/11/18 00:03 AST 17 units/L (5-40) 03/11/18 00:03 ALT 16 units/L (7-56) 03/11/18 00:03 Alkaline Phosphatase 94 units/L (35-129) 03/11/18 00:03 Total Creatine Kinase 339 units/L (30-135) H 03/13/18 04:45 Total Protein 7.7 g/dL (6.3-8.2) 03/11/18 00:03 Albumin 4.6 g/dL (3.9-5) 03/11/18 00:03 Albumin/Globulin Ratio 1.5 % 03/11/18 00:03 Urine Color Yellow (Yellow) 03/14/18 17:43 Urine Turbidity Cloudy (Clear) 03/14/18 17:43 Urine pH 6.0 (5.0-7.0) 03/14/18 17:43 Ur Specific [place] 1.012 (1.003-1.030) 03/14/18 17:43 Urine Protein 100 mg/dl mg/dL (Negative) 03/14/18 17:43 Urine Glucose (UA) 50 mg/dL (Negative) 03/14/18 17:43 Urine Ketones Neg mg/dL (Negative) 03/14/18 17:43 Urine Blood Lg (Negative) 03/14/18 17:43 Urine Nitrite Neg (Negative) 03/14/18 17:43 Urine Bilirubin Neg (Negative) 03/14/18 17:43 Urine Urobilinogen < 2.0 mg/dL (<2.0) 03/14/18 17:43 Ur Leukocyte Esterase Mod (Negative) 03/14/18 17:43 Urine WBC (Auto) 66.0 /HPF (0.0-6.0) H 03/14/18 17:43 Urine RBC (Auto) 9.0 /HPF (0.0-6.0) 03/14/18 17:43 U Epithel Cells (Auto) 45.0 /HPF (0-13.0) H 03/14/18 17:43 Urine Bacteria (Auto) 1+ /HPF (Negative) 03/11/18 10:07 Urine WBC Clumps 2+ /HPF 03/14/18 17:43 Urine Mucus 3+ /HPF 03/11/18 10:07 Urine Yeast (Budding) 1+ /HPF 03/14/18 17:43 Urine Creatinine 67.5 mg/dL (0.1-20.0) H 03/14/18 17:43 Urine Sodium 79 mmol/L 03/14/18 17:43 Urine HCG, Qual Negative (Negative) 03/11/18 10:07
[2018-03-15] MEDS: ZOFRAN IV PRN (19:00)
--- NOTE | 2018-03-15 19:00 | Hem/Onc Progress Note ---
Assessment and Plan # DVT left leg s/p thrombectomy ? 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 - nephrology following - 03/15 - pt was offered HD, she wants to wait for a few days - Patient Problems (1) Deep vein thrombosis Onset Date: ~03/11/18 Current Visit: Yes Status: Acute Qualifiers: DVT location: lower extremity Affected thrombotic vein of extremity: unspecified lower extremity proximal vein Chronicity: acute Laterality: left Qualified Code(s): I82.4Y2 - Acute embolism and thrombosis of unspecified deep veins of left proximal lower extremity Subjective Date of service: 03/15/18 Principal diagnosis: left leg DVT Interval history: 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 residential 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 - nephrology following leg swelling and pain better Objective - Constitutional Vitals: Last Vital Signs Temp 98.8 F 03/15/18 13:18 Pulse 85 03/15/18 13:18 Resp 20 03/15/18 13:18 BP 152/86 03/15/18 13:18 Pulse Ox 100 03/15/18 13:18 Pain Intensity (0-10): denies any pain General appearance: no acute distress - EENT Eyes: PERRL ENT: clear oral mucosa Lymph node exam: negative cervical, negative supraclavicular - Neck Neck: supple - Respiratory Respiratory: bilateral: CTA - Cardiovascular Heart Sounds: Present: S1 & S2 Extremity abnormal: edema - Gastrointestinal General gastrointestinal: Present: soft, non-tender Rectal Exam: deferred - Genitourinary Female genitourinary: Present: deferred - Integumentary Integumentary: warm - Musculoskeletal Musculoskeletal: strength equal bilaterally - Neurologic Neurologic: moves all extremities - Psychiatric Psychiatric: appropriate mood/affect - Labs Lab Results: Laboratory Results - last 24 hr 03/15/18 04:57 Sodium 137 Potassium 4.0 Chloride 104.4 Carbon Dioxide 18 L Anion Gap 19 BUN 54 H Creatinine 12.2 H Estimated GFR 3 BUN/Creatinine Ratio 4 Glucose 79 Calcium 8.0 L Phosphorus 3.90
[2018-03-15] MEDS: NACL 0.9% 1000 ML 1,000 ML IV SCH (22:45)
[2018-03-16] MEDS: SODIUM CHLORIDE FLUSH SYRINGE 10 ML IV SCH ×3 (02:06→21:04)
[2018-03-16 05:45] LABS: Calcium 8.1 mg/dL (8.4-10.2)
[2018-03-16] MEDS: ELIQUIS PO SCH ×2 (09:59→21:03)
--- NOTE | 2018-03-16 11:14 | Progress Note ---
Assessment and Plan 1. Acute kidney injury: Likely ATN in the setting of NSAIDs and IV contrast. Renal function continue to decline. Continue IV fluids. Elizabeth, ANCA, Complements and Lupus anticoagulant ordered. 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 D/w patient that she would need hemodialysis if the renal function continue to get worse. Renal prognosis is guarded. Monitor. 2. Extensive DVT. 3. Anemia. Subjective Date of service: 03/16/18 Principal diagnosis: left leg DVT Interval history: Patient was seen and examined at the bedside. Feeling better. No N or V. Objective - Vital Signs Vital signs: Vital Signs - 12hr 03/16/18 06:02 Pulse Rate 89 Respiratory 16 Rate Blood Pressure 153/83 O2 Sat by Pulse 96 Oximetry - General Appearance General appearance: well-developed, well-nourished, appears stated age, obese, other (not in distress) EENT: ATNC, PERRL, mucous membranes moist, hearing intact, vision intact Neck: supple Respiratory: Present: Clear to Ascultation Cardiology: regular, S1S2, no murmurs Gastrointestinal: normoactive bowel sounds Integumentary: no rash, warm and dry Neurologic: no focal deficit, no asterixis, alert and oriented x3 Musculoskeletal: other (no edema) Psychiatric: cooperative - Lab 03/14/18 09:44 03/16/18 04:41 Most recent lab results Calcium 8.1 mg/dL (8.4-10.2) L 03/16/18 04:41 Phosphorus 3.90 mg/dL (2.5-4.5) 03/15/18 04:57 Urine Creatinine 67.5 mg/dL (0.1-20.0) H 03/14/18 17:43 Urine Sodium 79 mmol/L 03/14/18 17:43
--- NOTE | 2018-03-16 13:17 | Progress Note ---
Assessment and Plan Assessment and plan: Acute DVT left lower extremity, extensive. Admitted to med/surg. had thrombectomy, angioplasty and stent placement 03/11 Continue Eliquis. Acute kidney injury, due to contrast nephropathy, rapidly worsening Cr 14.1 today Discussed with Nephrology Cont iv fluids, May need dialysis if continues to worsen Metabolic acidosis due to KETTY Obesity. Discussed diet and exercise to lose weight Smoking cessation counseling done.'She states she has been using patch to quit smoking Hypertensive urgency. Start Amlodipine 5mg po daily Hydralazine iv prn Full code status History Interval history: Less pain left leg, No fever Creatinine continue to rise Hospitalist Physical - Physical exam Narrative exam: GEN:Not in acute distress, lying in bed,obese HEENT: Normocephalic, atraumatic, Neck: supple, No JVD Lungs: Clear to auscultaion bilaterally, no crackles Heart:S1 and S2 reg, no murmurs, rubs or gallop Abd:soft, non-tender, non-distended, Normal bowel sounds Ext: Left leg edema, tenderness, no clubbing or cyanosis Neuro: Awake, alert, oriented X 3, Moves all extremities - Constitutional Vitals: Temp Pulse Resp BP Pulse Ox 98.1 F 89 16 153/83 96 03/15/18 23:10 03/16/18 06:02 03/16/18 06:02 03/16/18 06:02 03/16/18 06:02 General appearance: Present: no acute distress Results - Labs CBC & Chem 7: 03/14/18 09:44 03/16/18 04:41 Labs: Laboratory Last Values WBC 11.1 K/mm3 (4.5-11.0) H 03/13/18 04:45 RBC 3.53 M/mm3 (3.65-5.03) L 03/13/18 04:45 Hgb 9.3 gm/dl (10.1-14.3) L 03/14/18 09:44 Hct 28.4 % (30.3-42.9) L 03/14/18 09:44 MCV 83 fl (79-97) 03/13/18 04:45 MCH 28 pg (28-32) 03/13/18 04:45 MCHC 33 % (30-34) 03/13/18 04:45 RDW 15.6 % (13.2-15.2) H 03/13/18 04:45 Plt Count 150 K/mm3 (140-440) 03/14/18 09:44 Lymph % (Auto) 12.6 % (13.4-35.0) L 03/12/18 06:10 [place] % (Auto) 12.2 % (0.0-7.3) H 03/12/18 06:10 Eos % (Auto) 1.8 % (0.0-4.3) 03/12/18 06:10 Baso % (Auto) 0.5 % (0.0-1.8) 03/12/18 06:10 Lymph # 1.5 K/mm3 (1.2-5.4) 03/12/18 06:10 [place] # 1.5 K/mm3 (0.0-0.8) H 03/12/18 06:10 Eos # 0.2 K/mm3 (0.0-0.4) 03/12/18 06:10 Baso # 0.1 K/mm3 (0.0-0.1) 03/12/18 06:10 Seg Neutrophils % 72.9 % (40.0-70.0) H 03/12/18 06:10 Seg Neutrophils # 8.8 K/mm3 (1.8-7.7) H 03/12/18 06:10 PT 17.6 Sec. (12.2-14.9) H 03/14/18 09:44 INR 1.39 (0.87-1.13) H 03/14/18 09:44 APTT 35.6 Sec. (24.2-36.6) 03/14/18 09:44 D-Dimer 7951.75 ng/mlDDU (0-234) H 03/11/18 00:03 Heparin Anti-Xa Level > 2.00 U.I./ml (0.3-0.7) H 03/11/18 06:10 Sodium 136 mmol/L (137-145) L 03/16/18 04:41 Potassium 4.5 mmol/L (3.6-5.0) 03/16/18 04:41 Chloride 104.1 mmol/L (98-107) 03/16/18 04:41 Carbon Dioxide 16 mmol/L (22-30) L 03/16/18 04:41 Anion Gap 20 mmol/L 03/16/18 04:41 BUN 61 mg/dL (7-17) H 03/16/18 04:41 Creatinine 14.1 mg/dL (0.7-1.2) H 03/16/18 04:41 Estimated GFR 3 ml/min 03/16/18 04:41 BUN/Creatinine Ratio 4 % 03/16/18 04:41 Glucose 82 mg/dL (65-100) 03/16/18 04:41 Lactic Acid 1.70 mmol/L (0.7-2.0) 03/11/18 07:11 Calcium 8.1 mg/dL (8.4-10.2) L 03/16/18 04:41 Phosphorus 3.90 mg/dL (2.5-4.5) 03/15/18 04:57 Total Bilirubin 0.80 mg/dL (0.1-1.2) 03/11/18 00:03 AST 17 units/L (5-40) 03/11/18 00:03 ALT 16 units/L (7-56) 03/11/18 00:03 Alkaline Phosphatase 94 units/L (35-129) 03/11/18 00:03 Total Creatine Kinase 339 units/L (30-135) H 03/13/18 04:45 Total Protein 7.7 g/dL (6.3-8.2) 03/11/18 00:03 Albumin 4.6 g/dL (3.9-5) 03/11/18 00:03 Albumin/Globulin Ratio 1.5 % 03/11/18 00:03 Urine Color Yellow (Yellow) 03/14/18 17:43 Urine Turbidity Cloudy (Clear) 03/14/18 17:43 Urine pH 6.0 (5.0-7.0) 03/14/18 17:43 Ur Specific [place] 1.012 (1.003-1.030) 03/14/18 17:43 Urine Protein 100 mg/dl mg/dL (Negative) 03/14/18 17:43 Urine Glucose (UA) 50 mg/dL (Negative) 03/14/18 17:43 Urine Ketones Neg mg/dL (Negative) 03/14/18 17:43 Urine Blood Lg (Negative) 03/14/18 17:43 Urine Nitrite Neg (Negative) 03/14/18 17:43 Urine Bilirubin Neg (Negative) 03/14/18 17:43 Urine Urobilinogen < 2.0 mg/dL (<2.0) 03/14/18 17:43 Ur Leukocyte Esterase Mod (Negative) 03/14/18 17:43 Urine WBC (Auto) 66.0 /HPF (0.0-6.0) H 03/14/18 17:43 Urine RBC (Auto) 9.0 /HPF (0.0-6.0) 03/14/18 17:43 U Epithel Cells (Auto) 45.0 /HPF (0-13.0) H 03/14/18 17:43 Urine Bacteria (Auto) 1+ /HPF (Negative) 03/11/18 10:07 Urine WBC Clumps 2+ /HPF 03/14/18 17:43 Urine Mucus 3+ /HPF 03/11/18 10:07 Urine Yeast (Budding) 1+ /HPF 03/14/18 17:43 Urine Creatinine 67.5 mg/dL (0.1-20.0) H 03/14/18 17:43 Urine Sodium 79 mmol/L 03/14/18 17:43 Urine HCG, Qual Negative (Negative) 03/11/18 10:07
[2018-03-16] MEDS ORDERED: APRESOLINE IV PRN (14:38)
[2018-03-16] MEDS ORDERED: NORVASC PO SCH (15:00)
[2018-03-16] MEDS: NACL 0.9% 1000 ML 1,000 ML IV SCH (15:27)
--- NOTE | 2018-03-17 08:21 | Hem/Onc Progress Note ---
Assessment and Plan # DVT left leg s/p thrombectomy ? 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 - nephrology following # rash - nape of neck and chest - pt thinks it is eliquis - option of xarelto - or lovenox/heparin in the interim - Patient Problems (1) Deep vein thrombosis Onset Date: ~03/11/18 Current Visit: Yes Status: Acute Qualifiers: DVT location: lower extremity Affected thrombotic vein of extremity: unspecified lower extremity proximal vein Chronicity: acute Laterality: left Qualified Code(s): I82.4Y2 - Acute embolism and thrombosis of unspecified deep veins of left proximal lower extremity Subjective Date of service: 03/17/18 Principal diagnosis: dvt left leg Interval history: rising therapeutic mentor - nephrology following leg swelling and pain better rash neck and chest area - for a few days - pt thinks it may be eliquis. - pt did not take eliquis last night Objective - Constitutional Vitals: Last Vital Signs Temp 98.9 F 03/17/18 05:34 Pulse 80 03/17/18 05:34 Resp 16 03/17/18 05:34 BP 162/93 03/16/18 20:39 Pulse Ox 99 03/17/18 05:34 Pain Intensity (0-10): denies any pain General appearance: no acute distress Performance status: 2- selfcare, ambulatory - EENT Eyes: PERRL ENT: clear oral mucosa Lymph node exam: negative cervical, negative supraclavicular - Neck Neck: supple - Respiratory Respiratory effort: Positive: normal Respiratory: bilateral: CTA - Cardiovascular Heart Sounds: Present: S1 & S2 - Gastrointestinal General gastrointestinal: Present: soft, non-tender Rectal Exam: deferred - Genitourinary Female genitourinary: Present: deferred - Integumentary Integumentary: rash (nape of neck - multiple papular small lesions) - Musculoskeletal Musculoskeletal: strength equal bilaterally - Neurologic Neurologic: moves all extremities - Psychiatric Psychiatric: appropriate mood/affect - Labs Lab Results: Laboratory Results - last 24 hr 03/17/18 05:11 Sodium 136 L Potassium 4.6 Chloride 101.6 Carbon Dioxide 15 L Anion Gap 24 BUN 65 H Creatinine 15.8 H Estimated GFR 2 BUN/Creatinine Ratio 4 Glucose 74 Calcium 8.0 L
--- NOTE | 2018-03-17 08:23 | Progress Note ---
Assessment and Plan 1. Acute kidney injury: Likely ATN in the setting of NSAIDs and IV contrast. Renal function continue to decline. No uremic signs of symptoms. Continue IV fluids. RAY, ANCA, Complements and Lupus anticoagulant ordered. 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 D/w patient that she would need hemodialysis if the renal function continue to get worse. Also discussed about Kidney biopsy but patient refused. Renal prognosis is guarded. 2. Extensive DVT: Followed by Heme-Onc. 3. Anemia. Subjective Date of service: 03/17/18 Principal diagnosis: dvt left leg Interval history: Patient was seen and examined at the bedside. Feeling ok. No N or V. Objective - Vital Signs Vital signs: Vital Signs - 12hr 03/16/18 03/17/18 20:39 05:34 Temperature 99.0 F 98.9 F Pulse Rate 90 80 Respiratory 18 16 Rate Blood Pressure 162/93 O2 Sat by Pulse 96 99 Oximetry - General Appearance General appearance: well-developed, well-nourished, appears stated age, obese, other (no tin distress) EENT: ATNC, PERRL, mucous membranes moist, hearing intact, vision intact Neck: supple Respiratory: Present: Clear to Ascultation Cardiology: regular, S1S2, no murmurs Gastrointestinal: normoactive bowel sounds, no tenderness Integumentary: warm and dry Neurologic: no focal deficit, no asterixis, alert and oriented x3 Musculoskeletal: other (no edema) Psychiatric: cooperative - Lab 03/17/18 13:18 03/17/18 05:11 Most recent lab results Calcium 8.0 mg/dL (8.4-10.2) L 03/17/18 05:11 Phosphorus 3.90 mg/dL (2.5-4.5) 03/15/18 04:57 Urine Creatinine 67.5 mg/dL (0.1-20.0) H 03/14/18 17:43 Urine Sodium 79 mmol/L 03/14/18 17:43
[2018-03-17] MEDS ORDERED: NORVASC PO SCH (10:00)
[2018-03-17] MEDS: LEVAQUIN 250MG/50ML 250 MG/50 ML BAG IV SCH (10:19)
[2018-03-17] MEDS: ELIQUIS PO SCH (10:31)
[2018-03-17] MEDS: SODIUM CHLORIDE FLUSH SYRINGE 10 ML IV SCH ×2 (10:32→21:59)
[2018-03-17] MEDS: NACL 0.9% 1000 ML 1,000 ML IV SCH (10:35)
[2018-03-17] MEDS: HEPARIN/ 0.45% NACL-25,000 UNIT/500 ML 25,000 UNIT/500 ML BAG IV SCH (12:22)
--- NOTE | 2018-03-17 13:33 | Progress Note ---
Assessment and Plan - Patient Problems (1) Rash and nonspecific skin eruption Current Visit: Yes Status: Acute Plan to address problem: Patient has rash unsure if secondary to anticoagulant versus antihypertensive. We'll change antihypertensive from amlodipine to atenolol. Patient has possible change in anticoagulation per hematology. (2) ARF (acute renal failure) Current Visit: Yes Status: Acute Plan to address problem: Patient's renal function continues to get worse. Patient has potassium of 4.6 today and also creatinine now of 14.6. Discuss patient with detail about need for dialysis and she now understands and has a good comprehension of what is going on. Patient now agrees to procedure. (3) Acute deep vein thrombosis (DVT) of left iliofemoral vein Current Visit: Yes Status: Acute Plan to address problem: Extensive DVT status post thrombectomy. Area seems to be going down pulses intact edema improving. Pain improving. (4) May-Thurner syndrome Current Visit: Yes Status: Acute (5) Hypertension Current Visit: Yes Status: Acute Plan to address problem: Blood pressure suboptimally controlled. We'll add atenolol DC amlodipine possible rash will also add Benadryl and Atarax. History Interval history: Patient today complained of rash around neck and itching. Patient stated that she suspects it's from elaquis. Should also started amlodipine shortly after that time. I did speak with patient in detail about worsening renal function and her refusal of dialysis. I did also mention that patient's potassium was going up from 4-4.6 and this could potentially cause complications with the heart. 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 She is willing to proceed at this time. Hospitalist Physical - Constitutional Vitals: Temp Pulse Resp BP Pulse Ox 98.8 F 84 24 145/75 99 03/17/18 11:36 03/17/18 11:36 03/17/18 11:36 03/17/18 11:36 03/17/18 11:36 General appearance: Present: no acute distress - EENT Eyes: Present: PERRL, EOM intact ENT: hearing intact, clear oral mucosa, dentition normal, other (rash around neck fine small slightly raised lesions.) - Neck Neck: Present: supple, normal ROM - Respiratory Respiratory effort: normal Respiratory: bilateral: CTA - Cardiovascular Rhythm: regular Heart Sounds: Present: S1 & S2 - Extremities Extremities: normal temperature, normal color Extremity abnormal: edema, other (mild neuropathy) Peripheral Pulses: abnormal - Abdominal General gastrointestinal: soft, non-tender, non-distended, other (obese) - Psychiatric Psychiatric: appropriate mood/affect, intact judgment & insight, memory intact - Neurologic Neurologic: CNII-XII intact, focal deficits, moves all extremities Results - Labs CBC & Chem 7: 03/14/18 09:44 03/17/18 05:11 Labs: Laboratory Last Values WBC 11.1 K/mm3 (4.5-11.0) H 03/13/18 04:45 RBC 3.53 M/mm3 (3.65-5.03) L 03/13/18 04:45 Hgb 9.3 gm/dl (10.1-14.3) L 03/14/18 09:44 Hct 28.4 % (30.3-42.9) L 03/14/18 09:44 MCV 83 fl (79-97) 03/13/18 04:45 MCH 28 pg (28-32) 03/13/18 04:45 MCHC 33 % (30-34) 03/13/18 04:45 RDW 15.6 % (13.2-15.2) H 03/13/18 04:45 Plt Count 150 K/mm3 (140-440) 03/14/18 09:44 Lymph % (Auto) 12.6 % (13.4-35.0) L 03/12/18 06:10 [place] % (Auto) 12.2 % (0.0-7.3) H 03/12/18 06:10 Eos % (Auto) 1.8 % (0.0-4.3) 03/12/18 06:10 Baso % (Auto) 0.5 % (0.0-1.8) 03/12/18 06:10 Lymph # 1.5 K/mm3 (1.2-5.4) 03/12/18 06:10 [place] # 1.5 K/mm3 (0.0-0.8) H 03/12/18 06:10 Eos # 0.2 K/mm3 (0.0-0.4) 03/12/18 06:10 Baso # 0.1 K/mm3 (0.0-0.1) 03/12/18 06:10 Seg Neutrophils % 72.9 % (40.0-70.0) H 03/12/18 06:10 Seg Neutrophils # 8.8 K/mm3 (1.8-7.7) H 03/12/18 06:10 PT 17.6 Sec. (12.2-14.9) H 03/14/18 09:44 INR 1.39 (0.87-1.13) H 03/14/18 09:44 APTT 35.6 Sec. (24.2-36.6) 03/14/18 09:44 D-Dimer 7951.75 ng/mlDDU (0-234) H 03/11/18 00:03 Heparin Anti-Xa Level > 2.00 U.I./ml (0.3-0.7) H 03/11/18 06:10 Sodium 136 mmol/L (137-145) L 03/17/18 05:11 Potassium 4.6 mmol/L (3.6-5.0) 03/17/18 05:11 Chloride 101.6 mmol/L (98-107) 03/17/18 05:11 Carbon Dioxide 15 mmol/L (22-30) L 03/17/18 05:11 Anion Gap 24 mmol/L 03/17/18 05:11 BUN 65 mg/dL (7-17) H 03/17/18 05:11 Creatinine 15.8 mg/dL (0.7-1.2) H 03/17/18 05:11 Estimated GFR 2 ml/min 03/17/18 05:11 BUN/Creatinine Ratio 4 % 03/17/18 05:11 Glucose 74 mg/dL (65-100) 03/17/18 05:11 Lactic Acid 1.70 mmol/L (0.7-2.0) 03/11/18 07:11 Calcium 8.0 mg/dL (8.4-10.2) L 03/17/18 05:11 Phosphorus 3.90 mg/dL (2.5-4.5) 03/15/18 04:57 Total Bilirubin 0.80 mg/dL (0.1-1.2) 03/11/18 00:03 AST 17 units/L (5-40) 03/11/18 00:03 ALT 16 units/L (7-56) 03/11/18 00:03 Alkaline Phosphatase 94 units/L (35-129) 03/11/18 00:03 Total Creatine Kinase 339 units/L (30-135) H 03/13/18 04:45 Total Protein 7.7 g/dL (6.3-8.2) 03/11/18 00:03 Albumin 4.6 g/dL (3.9-5) 03/11/18 00:03 Albumin/Globulin Ratio 1.5 % 03/11/18 00:03 Urine Color Yellow (Yellow) 03/14/18 17:43 Urine Turbidity Cloudy (Clear) 03/14/18 17:43 Urine pH 6.0 (5.0-7.0) 03/14/18 17:43 Ur Specific [place] 1.012 (1.003-1.030) 03/14/18 17:43 Urine Protein 100 mg/dl mg/dL (Negative) 03/14/18 17:43 Urine Glucose (UA) 50 mg/dL (Negative) 03/14/18 17:43 Urine Ketones Neg mg/dL (Negative) 03/14/18 17:43 Urine Blood Lg (Negative) 03/14/18 17:43 Urine Nitrite Neg (Negative) 03/14/18 17:43 Urine Bilirubin Neg (Negative) 03/14/18 17:43 Urine Urobilinogen < 2.0 mg/dL (<2.0) 03/14/18 17:43 Ur Leukocyte Esterase Mod (Negative) 03/14/18 17:43 Urine WBC (Auto) 66.0 /HPF (0.0-6.0) H 03/14/18 17:43 Urine RBC (Auto) 9.0 /HPF (0.0-6.0) 03/14/18 17:43 U Epithel Cells (Auto) 45.0 /HPF (0-13.0) H 03/14/18 17:43 Urine Bacteria (Auto) 1+ /HPF (Negative) 03/11/18 10:07 Urine WBC Clumps 2+ /HPF 03/14/18 17:43 Urine Mucus 3+ /HPF 03/11/18 10:07 Urine Yeast (Budding) 1+ /HPF 03/14/18 17:43 Urine Creatinine 67.5 mg/dL (0.1-20.0) H 09/14/18 17:43 Urine Sodium 79 mmol/L 03/14/18 17:43 Urine HCG, Qual Negative (Negative) 03/11/18 10:07
[2018-03-17] MEDS ORDERED: ATARAX PO PRN (13:38)
[2018-03-17 14:27] LABS: Hematocrit 32.7 % (30.3-42.9); Hemoglobin 10.8 gm/dl (10.1-14.3)
[2018-03-17 14:36] LABS: INR 1.25 (0.87-1.13); Partial Thromboplastin Time 34.7 Sec. (24.2-36.6)
[2018-03-17] MEDS: ZOFRAN IV PRN (15:44)
--- NOTE | 2018-03-17 17:14 | Progress Note ---
Assessment and Plan Continued increase in Cr. Pt reportedly refusing HD. Pt refused Eliquis last pm and this am due to concerns that this may have played a part of her new rash and kidney insufficiency. I ordered a heparin drip and explained the importance of remaining anticoagulated following her recent dvt and venous procedure. Continue to follow. - Patient Problems (1) May-Thurner syndrome Current Visit: Yes Status: Acute (2) Acute deep vein thrombosis (DVT) of left iliofemoral vein Current Visit: Yes Status: Acute (3) ARF (acute renal failure) Current Visit: Yes Status: Acute Subjective Date of service: 03/17/18 Principal diagnosis: dvt left leg Interval history: Pt awake and alert. C/o new onset rash over the weekend with swelling to her left ear. Denies rash to her arms or legs. Objective - Constitutional Vitals: Vital Signs - 12hr 03/17/18 03/17/18 03/17/18 05:34 08:50 10:31 Temperature 98.9 F Pulse Rate 80 93 H Pulse Rate [ 93 H Right Radial] Respiratory 16 16 Rate Blood Pressure 159/99 O2 Sat by Pulse 99 Oximetry 03/17/18 11:36 Temperature 98.8 F Pulse Rate 84 Pulse Rate [ Right Radial] Respiratory 24 Rate Blood Pressure 145/75 O2 Sat by Pulse 99 Oximetry General appearance: Present: no acute distress - EENT Eyes: EOM intact ENT: hearing intact, other (Left ear swelling.) - Neck Neck: other (maculopapular rash over chest and neck) - Respiratory Respiratory effort: normal Extremities: no ischemia, normal temperature, abnormal (small tape blister on each lateral pop fossa without erythema or drainage) - Neurologic Neurologic: no focal deficits - Psychiatric Psychiatric: appropriate mood/affect, intact judgment & insight, cooperative - Labs CBC & Chem 7: 03/17/18 13:18 03/17/18 05:11 Labs: Abnormal lab results 03/17/18 03/17/18 Range/Units 05:11 13:18 PT 16.4 H (12.2-14.9) Sec. INR 1.25 H (0.87-1.13) Sodium 136 L (137-145) mmol/L Carbon Dioxide 15 L (22-30) mmol/L BUN 65 H (7-17) mg/dL Creatinine 15.8 H (0.7-1.2) mg/dL Calcium 8.0 L (8.4-10.2) mg/dL
[2018-03-17] MEDS: BENADRYL IV PRN (19:08)
[2018-03-18] MEDS: NACL 0.9% 1000 ML 1,000 ML IV SCH (06:27)
[2018-03-18 06:37] LABS: Basophils % (Auto) 0.1 % (0.0-1.8); Eosinophils # (Auto) 0.5 K/mm3 (0.0-0.4); Hematocrit 33.9 % (30.3-42.9); Hemoglobin 11.1 gm/dl (10.1-14.3); Lymphocytes # (Auto) 0.7 K/mm3 (1.2-5.4); Lymphocytes % (Auto) 5.2 % (13.4-35.0); Mean Corpuscular HGB Conc 33 % (30-34); Mean Corpuscular Hemoglobin 27 pg (28-32); Mean Corpuscular Volume 84 fl (79-97); Monocytes # (Auto) 0.4 K/mm3 (0.0-0.8); Monocytes % (Auto) 3.4 % (0.0-7.3); Platelet Count 271 K/mm3 (140-440); Red Blood Count 4.05 M/mm3 (3.65-5.03); Red Cell Distribution Width 15.7 % (13.2-15.2)
--- NOTE | 2018-03-18 08:05 | Hem/Onc Progress Note ---
Assessment and Plan # DVT left leg s/p thrombectomy - ? 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 - OP follow up for same # mild thrombocytopenia 03/12 - plt 136 and later 142 - will follow - this may be post procedure # rug cutter abn - post procedure - nephrology following - HD offered # rash - nape of neck and chest - pt thinks it is eliquis - option of xarelto - rash better 03/18 - pt on heparin in the interim - Patient Problems (1) Deep vein thrombosis Onset Date: ~03/11/18 Current Visit: Yes Status: Acute Qualifiers: DVT location: lower extremity Affected thrombotic vein of extremity: unspecified lower extremity proximal vein Chronicity: acute Laterality: left Qualified Code(s): I82.4Y2 - Acute embolism and thrombosis of unspecified deep veins of left proximal lower extremity Subjective Date of service: 03/18/18 Principal diagnosis: left leg DVT Interval history: rising rug cutter - nephrology following leg swelling and pain better rash neck and chest area - pt thinks it may be eliquis. - stopped same - on IV heparin rash better Objective - Constitutional Vitals: Last Vital Signs Temp 98.3 F 03/18/18 06:22 Pulse 93 H 03/18/18 06:22 Resp 18 03/18/18 06:22 BP 129/71 03/18/18 06:22 Pulse Ox 99 03/18/18 06:22 Pain Intensity (0-10): 0/10 (leg) General appearance: no acute distress Performance status: 2- selfcare, ambulatory - EENT Eyes: PERRL ENT: clear oral mucosa Lymph node exam: negative cervical, negative supraclavicular - Neck Neck: supple - Respiratory Respiratory effort: Positive: normal Respiratory: bilateral: CTA - Cardiovascular Heart Sounds: Present: S1 & S2 Extremity abnormal: edema (left leg - better) - Gastrointestinal General gastrointestinal: Present: soft, non-tender Rectal Exam: deferred - Genitourinary Female genitourinary: Present: deferred - Integumentary Integumentary: warm - Musculoskeletal Musculoskeletal: strength equal bilaterally - Neurologic Neurologic: moves all extremities - Psychiatric Psychiatric: appropriate mood/affect - Labs Lab Results: Laboratory Results - last 24 hr 03/17/18 03/17/18 03/17/18 13:18 13:18 17:45 WBC RBC Hgb 10.8 Hct 32.7 MCV MCH MCHC RDW Plt Count 262 Lymph % (Auto) [place] % (Auto) Eos % (Auto) Baso % (Auto) Lymph # [place] # Eos # Baso # Seg Neutrophils % Seg Neutrophils # PT 16.4 H INR 1.25 H APTT 34.7 Heparin Anti-Xa Level 1.85 H Sodium Potassium Chloride Carbon Dioxide Anion Gap BUN Creatinine Estimated GFR BUN/Creatinine Ratio Glucose Calcium Total Bilirubin AST ALT Alkaline Phosphatase Total Protein Albumin Albumin/Globulin Ratio 03/18/18 03/18/18 03/18/18 06:00 06:00 06:00 WBC 13.3 H RBC 4.05 Hgb 11.1 Hct 33.9 MCV 84 MCH 27 L MCHC 33 RDW 15.7 H Plt Count 271 Lymph % (Auto) 5.2 L [place] % (Auto) 3.4 Eos % (Auto) 4.0 Baso % (Auto) 0.1 Lymph # 0.7 L [place] # 0.4 Eos # 0.5 H Baso # 0.0 Seg Neutrophils % 87.3 H Seg Neutrophils # 11.6 H PT INR APTT Heparin Anti-Xa Level 1.32 H Sodium 134 L Potassium 4.9 Chloride 104.2 Carbon Dioxide 14 L Anion Gap 21 BUN 71 H Creatinine 16.9 H Estimated GFR 2 BUN/Creatinine Ratio 4 Glucose 84 Calcium 8.0 L Total Bilirubin 0.40 AST 11 ALT 16 Alkaline Phosphatase 76 Total Protein 5.7 L Albumin 3.0 L Albumin/Globulin Ratio 1.1
--- NOTE | 2018-03-18 09:13 | Progress Note ---
Assessment and Plan 1. Acute kidney injury: Likely ATN in the setting of NSAIDs and IV contrast. Renal function continue to decline. Symptoms suggestive of uremia. RAY, ANCA, Complements and Lupus anticoagulant ordered. 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 D/w patient about the need hemodialysis due to declining renal function and suspected uremic symptoms. Explained the indications, benefits and risks involved in hemodialysis. Vascular consulted for placement of temporary hemodialysis catheter. HD today. Patient refused kidney biopsy. Renal prognosis is guarded. 2. Extensive DVT: Followed by Heme-Onc. 3. Anemia. Subjective Date of service: 03/18/18 Principal diagnosis: left leg DVT Interval history: Patient was seen and examined at the bedside. Patient c/o nausea and decreased appetite. Objective - Vital Signs Vital signs: Vital Signs - 12hr 03/18/18 03/18/18 00:51 06:22 Temperature 99.1 F 98.3 F Pulse Rate 95 H 93 H Respiratory 18 18 Rate Blood Pressure 144/77 129/71 O2 Sat by Pulse 97 99 Oximetry - General Appearance General appearance: well-developed, well-nourished, appears stated age, obese, other (not in distress) EENT: ATNC, PERRL, mucous membranes moist, hearing intact, vision intact Neck: supple Respiratory: Present: Clear to Ascultation Cardiology: regular, S1S2, no murmurs Gastrointestinal: normoactive bowel sounds, no tenderness, obese Integumentary: warm and dry Neurologic: no focal deficit, no asterixis, alert and oriented x3 Musculoskeletal: other (no edema) Psychiatric: cooperative - Lab 03/18/18 06:00 03/18/18 06:00 Most recent lab results Calcium 8.0 mg/dL (8.4-10.2) L 03/18/18 06:00 Phosphorus 3.90 mg/dL (2.5-4.5) 03/15/18 04:57 Urine Creatinine 67.5 mg/dL (0.1-20.0) H 03/14/18 17:43 Urine Sodium 79 mmol/L 03/14/18 17:43
[2018-03-18] MEDS ORDERED: NACL 0.9% 100 ML IV PRN ×2 (09:37→13:36)
[2018-03-18] MEDS: TENORMIN PO SCH ×2 (10:58→18:40)
[2018-03-18] MEDS: LEVAQUIN PO SCH (10:59)
[2018-03-18] MEDS ORDERED: SUBLIMAZE ONE (12:11)
[2018-03-18] MEDS ORDERED: ANCEF/STERILE WATER 2 GM/20 ML 2 GM/20 ML SYRINGE IV ONE (12:11)
[2018-03-18] MEDS ORDERED: VERSED ONE (12:11)
[2018-03-18] MEDS ORDERED: XYLOCAINE 2% INFILTRATI ONE (12:11)
[2018-03-18] MEDS ORDERED: HEPARIN/NS 5000 UNIT/500ML(CATH LAB) 500 ML IR ONE (12:11)
[2018-03-18] MEDS: HEPARIN 10,000 UNITS/10 ML ONE ×2 (12:29→12:30)
--- NOTE | 2018-03-18 12:42 | Progress Note ---
Assessment and Plan Assessment and plan: Acute DVT left lower extremity, extensive. s/p thrombectomy, angioplasty and stent placement 03/11 Continue Eliquis. Acute kidney injury, due to ATN in the setting of NSAIDs and contrast nephropathy Nephrology recommended dialysis as creatinine continues to worsen RAY, ANCA, Complements and Lupus anticoagulant ordered. Rash and nonspecific skin eruption. Patient has rash unsure if secondary to anticoagulant versus antihypertensive. Changed antihypertensive from amlodipine to atenolol. Metabolic acidosis due to KETTY Obesity. Discussed diet and exercise to lose weight Smoking cessation counseling done. She states she has been using patch to quit smoking Hypertensive urgency. Continue Amlodipine 5mg po daily Hydralazine iv prn Full code status History Interval history: No new issues overnight Hospitalist Physical - Constitutional Vitals: Temp Pulse Resp BP Pulse Ox 98.3 F 93 H 18 129/71 99 03/18/18 06:22 03/18/18 10:58 03/18/18 06:22 03/18/18 10:58 03/18/18 06:22 General appearance: Present: no acute distress - EENT Eyes: Present: PERRL, EOM intact ENT: hearing intact, clear oral mucosa, dentition normal - Neck Neck: Present: supple, normal ROM - Respiratory Respiratory effort: normal Respiratory: bilateral: CTA - Cardiovascular Rhythm: regular Heart Sounds: Present: S1 & S2. Absent: gallop, rub - Extremities Extremities: no ischemia, No edema, Full ROM - Abdominal General gastrointestinal: soft, non-tender, non-distended, normal bowel sounds - Integumentary Integumentary: Present: clear, warm, dry - Neurologic Neurologic: CNII-XII intact, moves all extremities Results - Labs CBC & Chem 7: 03/18/18 06:00 03/18/18 06:00 Labs: Laboratory Last Values WBC 13.3 K/mm3 (4.5-11.0) H 03/18/18 06:00 RBC 4.05 M/mm3 (3.65-5.03) 03/18/18 06:00 Hgb 11.1 gm/dl (10.1-14.3) 03/18/18 06:00 Hct 33.9 % (30.3-42.9) 03/18/18 06:00 MCV 84 fl (79-97) 03/18/18 06:00 MCH 27 pg (28-32) L 03/18/18 06:00 MCHC 33 % (30-34) 03/18/18 06:00 RDW 15.7 % (13.2-15.2) H 03/18/18 06:00 Plt Count 271 K/mm3 (140-440) 03/18/18 06:00 Lymph % (Auto) 5.2 % (13.4-35.0) L 03/18/18 06:00 [place] % (Auto) 3.4 % (0.0-7.3) 03/18/18 06:00 Eos % (Auto) 4.0 % (0.0-4.3) 03/18/18 06:00 Baso % (Auto) 0.1 % (0.0-1.8) 03/18/18 06:00 Lymph # 0.7 K/mm3 (1.2-5.4) L 03/18/18 06:00 [place] # 0.4 K/mm3 (0.0-0.8) 03/18/18 06:00 Eos # 0.5 K/mm3 (0.0-0.4) H 03/18/18 06:00 Baso # 0.0 K/mm3 (0.0-0.1) 03/18/18 06:00 Seg Neutrophils % 87.3 % (40.0-70.0) H 03/18/18 06:00 Seg Neutrophils # 11.6 K/mm3 (1.8-7.7) H 03/18/18 06:00 PT 16.4 Sec. (12.2-14.9) H 03/17/18 13:18 INR 1.25 (0.87-1.13) H 03/17/18 13:18 APTT 34.7 Sec. (24.2-36.6) 03/17/18 13:18 D-Dimer 7951.75 ng/mlDDU (0-234) H 03/11/18 00:03 Heparin Anti-Xa Level 1.32 U.I./ml (0.3-0.7) H 03/18/18 06:00 Sodium 134 mmol/L (137-145) L 03/18/18 06:00 Potassium 4.9 mmol/L (3.6-5.0) 03/18/18 06:00 Chloride 104.2 mmol/L (98-107) 03/18/18 06:00 Carbon Dioxide 14 mmol/L (22-30) L 03/18/18 06:00 Anion Gap 21 mmol/L 03/18/18 06:00 BUN 71 mg/dL (7-17) H 03/18/18 06:00 Creatinine 16.9 mg/dL (0.7-1.2) H 03/18/18 06:00 Estimated GFR 2 ml/min 03/18/18 06:00 BUN/Creatinine Ratio 4 % 03/18/18 06:00 Glucose 84 mg/dL (65-100) 03/18/18 06:00 Lactic Acid 1.70 mmol/L (0.7-2.0) 03/11/18 07:11 Calcium 8.0 mg/dL (8.4-10.2) L 03/18/18 06:00 Phosphorus 3.90 mg/dL (2.5-4.5) 03/15/18 04:57 Total Bilirubin 0.40 mg/dL (0.1-1.2) 03/18/18 06:00 AST 11 units/L (5-40) 03/18/18 06:00 ALT 16 units/L (7-56) 03/18/18 06:00 Alkaline Phosphatase 76 units/L (35-129) 03/18/18 06:00 Total Creatine Kinase 339 units/L (30-135) H 03/13/18 04:45 Total Protein 5.7 g/dL (6.3-8.2) L 03/18/18 06:00 Albumin 3.0 g/dL (3.9-5) L 03/18/18 06:00 Albumin/Globulin Ratio 1.1 % 03/18/18 06:00 Urine Color Yellow (Yellow) 03/14/18 17:43 Urine Turbidity Cloudy (Clear) 03/14/18 17:43 Urine pH 6.0 (5.0-7.0) 03/14/18 17:43 Ur Specific [place] 1.012 (1.003-1.030) 03/14/18 17:43 Urine Protein 100 mg/dl mg/dL (Negative) 03/14/18 17:43 Urine Glucose (UA) 50 mg/dL (Negative) 03/14/18 17:43 Urine Ketones Neg mg/dL (Negative) 03/14/18 17:43 Urine Blood Lg (Negative) 03/14/18 17:43 Urine Nitrite Neg (Negative) 03/14/18 17:43 Urine Bilirubin Neg (Negative) 03/14/18 17:43 Urine Urobilinogen < 2.0 mg/dL (<2.0) 03/14/18 17:43 Ur Leukocyte Esterase Mod (Negative) 03/14/18 17:43 Urine WBC (Auto) 66.0 /HPF (0.0-6.0) H 03/14/18 17:43 Urine RBC (Auto) 9.0 /HPF (0.0-6.0) 03/14/18 17:43 U Epithel Cells (Auto) 45.0 /HPF (0-13.0) H 03/14/18 17:43 Urine Bacteria (Auto) 1+ /HPF (Negative) 03/11/18 10:07 Urine WBC Clumps 2+ /HPF 03/14/18 17:43 Urine Mucus 3+ /HPF 03/11/18 10:07 Urine Yeast (Budding) 1+ /HPF 03/14/18 17:43 Urine Creatinine 67.5 mg/dL (0.1-20.0) H 03/14/18 17:43 Urine Sodium 79 mmol/L 03/14/18 17:43 Urine HCG, Qual Negative (Negative) 03/11/18 10:07
--- NOTE | 2018-03-18 13:24 | Operative Report ---
Operative Report Operative Report: Date of Procedure: 03/18/2018 Pre-operative Diagnosis: Acute Renal Failure Post-operative Diagnosis: Same Procedure(s): 1. Ultrasound-Guided Access Right Internal Jugular Vein 2. Placement of 16 Cm Pre-Curved Vas-Cath 3. Radiologic Supervision with Interpretation Surgeon: Olayinka Horowitz M.D. Photo Intern: Enrique Anesthesia: Local and IV Sedation EBL: Minimal Counts: Correct Complications: None Condition: Stable Findings: Successful placement of Vas-Cath with tip in the right atrium. Specimen: None Indication: The patient is a 47-year-old female with a history of extensive left lower extremity DVT who underwent a percutaneous mechanical thrombectomy and IVC filter placement. Her post procedure course has been complicated by acute renal failure and she is in need of Vas-Cath placement for hemodialysis. She was given the risk, benefits, and alternative procedures and has consented to the procedure. Description of Procedure: The patient was brought to the custodial laborer and laid in supine position. After she was adequately sedated her right neck was prepped and draped in normal sterile fashion. Ultrasound was used to identify the right internal jugular vein and the overlying skin and soft tissue was anesthetized with lidocaine. A small stab incision was made in the micropuncture technique was used with ultrasound guidance into the right internal jugular vein. The 0.018 wire was advanced into the central venous system under fluoroscopy. The micropuncture sheath was advanced over the wire and then the wire and dilator were removed. A 0.035 J- wire was advanced into the inferior vena cava under fluoroscopy and the micropuncture sheath was removed. The track was then dilated and then the Vas- Cath was placed by Seldinger technique. Both ports were then aspirated and flushed and primed with the appropriate amount of heparin. The catheter was then sewn in place with a 2-0 Ethilon suture and dressed sterilely. The final fluoroscopy demonstrated the catheter tip was in the right atrium without evidence of pneumothorax. The patient tolerated the procedure well. All sponge , needle, and instrument counts were correct. The patient was taken back to her room in stable condition.
[2018-03-18] MEDS: HEPARIN/ 0.45% NACL-25,000 UNIT/500 ML 25,000 UNIT/500 ML BAG IV SCH ×2 (13:25→19:31)
[2018-03-18] MEDS ORDERED: NACL 0.9 (PRIMING MACHINE ONLY DIALYSIS) MC ONE (13:41)
[2018-03-18 15:18] LABS: Hepatitis B Core IgM Non-Reactive (NonReactive); Hepatitis B Surface Antigen Non-Reactive (Negative); Hepatitis C Virus Antibody Non-Reactive (NonReactive)
[2018-03-18] MEDS: TYLENOL PO PRN (18:39)
[2018-03-18] MEDS: SODIUM CHLORIDE FLUSH SYRINGE 10 ML IV SCH (18:41)
[2018-03-19 05:26] LABS: Hematocrit 30.9 % (30.3-42.9); Hemoglobin 10.3 gm/dl (10.1-14.3)
[2018-03-19] MEDS: SODIUM CHLORIDE FLUSH SYRINGE 10 ML IV SCH ×3 (05:55→23:00)
[2018-03-19] MEDS: TYLENOL PO PRN (06:41)
[2018-03-19] MEDS: NACL 0.9% 1000 ML 1,000 ML IV SCH (06:42)
--- NOTE | 2018-03-19 08:31 | Progress Note ---
Assessment and Plan 1. Acute kidney injury: Likely ATN in the setting of NSAIDs and IV contrast. Renal function continue to decline. Symptoms suggestive of uremia. Complements negative. RAY, ANCA and Lupus anticoagulant are pending. Patient was started on hemodialysis yesterday due to declining renal function and suspected uremic symptoms. Tolerated HD well. 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 Will stop IV fluids due to volume overload. Renal prognosis is guarded. 2. Extensive DVT: Followed by Heme-Onc. 3. Anemia. Subjective Date of service: 03/19/18 Principal diagnosis: left leg DVT Interval history: Patient was seen and examined at the bedside. Patient c/o leg swelling. Objective - Vital Signs Vital signs: Vital Signs - 12hr 03/19/18 03/19/18 00:25 05:37 Temperature 99.2 F 100.6 F H Pulse Rate 92 H 96 H Respiratory 18 20 Rate Blood Pressure 108/48 121/53 O2 Sat by Pulse 99 97 Oximetry - General Appearance General appearance: well-developed, well-nourished, appears stated age, obese, other (not in distress, right IJ temp catheter) EENT: ATNC, PERRL, hearing intact, vision intact Neck: supple Respiratory: Present: Clear to Ascultation Cardiology: regular, S1S2, no murmurs Gastrointestinal: normoactive bowel sounds, no tenderness, obese Integumentary: no rash, warm and dry Neurologic: no focal deficit, no asterixis, alert and oriented x3 Musculoskeletal: other (trace edema of all 4 extremities) - Lab 03/19/18 04:41 03/19/18 04:41 Most recent lab results Calcium 8.0 mg/dL (8.4-10.2) L 03/19/18 04:41 Phosphorus 3.90 mg/dL (2.5-4.5) 03/15/18 04:57 Urine Creatinine 67.5 mg/dL (0.1-20.0) H 03/14/18 17:43 Urine Sodium 79 mmol/L 03/14/18 17:43
--- NOTE | 2018-03-19 09:56 | Progress Note ---
Assessment and Plan Assessment and plan: Acute DVT left lower extremity, extensive. s/p thrombectomy, angioplasty and stent placement 03/11 Continue Eliquis. Acute kidney injury, due to ATN in the setting of NSAIDs and contrast nephropathy Patient was started on hemodialysis yesterday due to declining renal function and suspected uremic symptoms. RAY, ANCA, Complements and Lupus anticoagulant ordered. Complements negative. Rash and nonspecific skin eruption. Patient has rash unsure if secondary to anticoagulant versus antihypertensive. Changed antihypertensive from amlodipine to atenolol. Metabolic acidosis due to KETTY Obesity. Discussed diet and exercise to lose weight Smoking cessation counseling done. She states she has been using patch to quit smoking Hypertensive urgency. Continue Amlodipine 5mg po daily Hydralazine iv prn Full code status History Interval history: No new issues overnight Hospitalist Physical - Constitutional Vitals: Temp Pulse Resp BP Pulse Ox 100.6 F H 96 H 20 121/53 97 03/19/18 05:37 03/19/18 05:37 03/19/18 05:37 03/19/18 05:37 03/19/18 05:37 General appearance: Present: no acute distress - EENT Eyes: Present: PERRL, EOM intact ENT: hearing intact, clear oral mucosa, dentition normal - Neck Neck: Present: supple, normal ROM - Respiratory Respiratory effort: normal Respiratory: bilateral: CTA - Cardiovascular Rhythm: regular Heart Sounds: Present: S1 & S2. Absent: gallop, rub - Extremities Extremities: no ischemia, No edema, Full ROM - Abdominal General gastrointestinal: soft, non-tender, non-distended, normal bowel sounds - Integumentary Integumentary: Present: clear, warm, dry - Neurologic Neurologic: CNII-XII intact, moves all extremities Results - Labs CBC & Chem 7: 03/19/18 04:41 03/19/18 04:41 Labs: Laboratory Last Values WBC 13.3 K/mm3 (4.5-11.0) H 03/18/18 06:00 RBC 4.05 M/mm3 (3.65-5.03) 03/18/18 06:00 Hgb 10.3 gm/dl (10.1-14.3) 03/19/18 04:41 Hct 30.9 % (30.3-42.9) 03/19/18 04:41 MCV 84 fl (79-97) 03/18/18 06:00 MCH 27 pg (28-32) L 03/18/18 06:00 MCHC 33 % (30-34) 03/18/18 06:00 RDW 15.7 % (13.2-15.2) H 03/18/18 06:00 Plt Count 224 K/mm3 (140-440) 03/19/18 04:41 Lymph % (Auto) 5.2 % (13.4-35.0) L 03/18/18 06:00 [place] % (Auto) 3.4 % (0.0-7.3) 03/18/18 06:00 Eos % (Auto) 4.0 % (0.0-4.3) 03/18/18 06:00 Baso % (Auto) 0.1 % (0.0-1.8) 03/18/18 06:00 Lymph # 0.7 K/mm3 (1.2-5.4) L 03/18/18 06:00 [place] # 0.4 K/mm3 (0.0-0.8) 03/18/18 06:00 Eos # 0.5 K/mm3 (0.0-0.4) H 03/18/18 06:00 Baso # 0.0 K/mm3 (0.0-0.1) 03/18/18 06:00 Seg Neutrophils % 87.3 % (40.0-70.0) H 03/18/18 06:00 Seg Neutrophils # 11.6 K/mm3 (1.8-7.7) H 03/18/18 06:00 PT 16.4 Sec. (12.2-14.9) H 03/17/18 13:18 INR 1.25 (0.87-1.13) H 03/17/18 13:18 APTT 34.7 Sec. (24.2-36.6) 03/17/18 13:18 D-Dimer 7951.75 ng/mlDDU (0-234) H 03/11/18 00:03 Lupus Anticoagulant see below H 03/17/18 05:11 LA PTT Baseline 51 sec (<=40) H 03/17/18 05:11 Heparin Anti-Xa Level 0.81 U.I./ml (0.3-0.7) H 03/19/18 04:41 Sodium 137 mmol/L (137-145) 03/19/18 04:41 Potassium 4.6 mmol/L (3.6-5.0) 03/19/18 04:41 Chloride 100.9 mmol/L (98-107) 03/19/18 04:41 Carbon Dioxide 23 mmol/L (22-30) D 03/19/18 04:41 Anion Gap 18 mmol/L 03/19/18 04:41 BUN 41 mg/dL (7-17) H 03/19/18 04:41 Creatinine 11.9 mg/dL (0.7-1.2) H 03/19/18 04:41 Estimated GFR 3 ml/min 03/19/18 04:41 BUN/Creatinine Ratio 3 % 03/19/18 04:41 Glucose 81 mg/dL (65-100) 03/19/18 04:41 Lactic Acid 1.70 mmol/L (0.7-2.0) 03/11/18 07:11 Calcium 8.0 mg/dL (8.4-10.2) L 03/19/18 04:41 Phosphorus 3.90 mg/dL (2.5-4.5) 03/15/18 04:57 Total Bilirubin 0.40 mg/dL (0.1-1.2) 03/18/18 06:00 AST 11 units/L (5-40) 03/18/18 06:00 ALT 16 units/L (7-56) 03/18/18 06:00 Alkaline Phosphatase 76 units/L (35-129) 03/18/18 06:00 Total Creatine Kinase 339 units/L (30-135) H 03/13/18 04:45 Total Protein 5.7 g/dL (6.3-8.2) L 03/18/18 06:00 Albumin 3.0 g/dL (3.9-5) L 03/18/18 06:00 Albumin/Globulin Ratio 1.1 % 03/18/18 06:00 Urine Color Yellow (Yellow) 03/14/18 17:43 Urine Turbidity Cloudy (Clear) 03/14/18 17:43 Urine pH 6.0 (5.0-7.0) 03/14/18 17:43 Ur Specific [place] 1.012 (1.003-1.030) 03/14/18 17:43 Urine Protein 100 mg/dl mg/dL (Negative) 03/14/18 17:43 Urine Glucose (UA) 50 mg/dL (Negative) 03/14/18 17:43 Urine Ketones Neg mg/dL (Negative) 03/14/18 17:43 Urine Blood Lg (Negative) 03/14/18 17:43 Urine Nitrite Neg (Negative) 03/14/18 17:43 Urine Bilirubin Neg (Negative) 03/14/18 17:43 Urine Urobilinogen < 2.0 mg/dL (<2.0) 03/14/18 17:43 Ur Leukocyte Esterase Mod (Negative) 03/14/18 17:43 Urine WBC (Auto) 66.0 /HPF (0.0-6.0) H 03/14/18 17:43 Urine RBC (Auto) 9.0 /HPF (0.0-6.0) 03/14/18 17:43 U Epithel Cells (Auto) 45.0 /HPF (0-13.0) H 03/14/18 17:43 Urine Bacteria (Auto) 1+ /HPF (Negative) 03/11/18 10:07 Urine WBC Clumps 2+ /HPF 03/14/18 17:43 Urine Mucus 3+ /HPF 03/11/18 10:07 Urine Yeast (Budding) 1+ /HPF 03/14/18 17:43 Urine Creatinine 67.5 mg/dL (0.1-20.0) H 03/14/18 17:43 Urine Sodium 79 mmol/L 03/14/18 17:43 Urine HCG, Qual Negative (Negative) 03/11/18 10:07 Complement C3 143 mg/dL (83-193) 03/17/18 05:11 Complement C4 23 mg/dL (15-57) 03/17/18 05:11 Hep Bs Antigen Non-reactive (Negative) 03/18/18 13:11 Hep B Core IgM Ab Non-reactive (NonReactive) 03/18/18 13:11 Hepatitis C Antibody Non-reactive (NonReactive) 03/18/18 13:11
[2018-03-19] MEDS: TENORMIN PO SCH (10:14)
[2018-03-19] MEDS: LEVAQUIN PO SCH (10:16)
--- NOTE | 2018-03-19 13:04 | Hem/Onc Progress Note ---
Assessment and Plan # DVT left leg s/p thrombectomy - ? 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 following - HD done # rash - nape of neck and chest - pt thinks it is eliquis - option of xarelto - rash better 03/18 - pt on heparin in the interim - Patient Problems (1) Deep vein thrombosis Onset Date: ~03/11/18 Current Visit: Yes Status: Acute Qualifiers: DVT location: lower extremity Affected thrombotic vein of extremity: unspecified lower extremity proximal vein Chronicity: acute Laterality: left Qualified Code(s): I82.4Y2 - Acute embolism and thrombosis of unspecified deep veins of left proximal lower extremity Subjective Date of service: 03/19/18 Principal diagnosis: left leg DVT Interval history: 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 - stopped same - rash better - on IV heparin edematous - IVF decreased s/p HD Objective - Constitutional Vitals: Last Vital Signs Temp 99.0 F 03/19/18 11:29 Pulse 87 03/19/18 11:29 Resp 20 03/19/18 11:29 BP 98/59 03/19/18 11:29 Pulse Ox 100 03/19/18 11:29 Pain Intensity (0-10): denies any pain General appearance: no acute distress Performance status: 2- selfcare, ambulatory - EENT Eyes: PERRL ENT: clear oral mucosa Lymph node exam: negative cervical, negative supraclavicular - Neck Neck: supple - Respiratory Respiratory effort: Positive: normal Respiratory: bilateral: CTA - Cardiovascular Heart Sounds: Present: S1 & S2 Extremity abnormal: edema - Gastrointestinal General gastrointestinal: Present: soft, non-tender Rectal Exam: deferred - Genitourinary Female genitourinary: Present: deferred - Integumentary Integumentary: warm - Musculoskeletal Musculoskeletal: strength equal bilaterally - Neurologic Neurologic: moves all extremities - Psychiatric Psychiatric: appropriate mood/affect - Labs Lab Results: Laboratory Results - last 24 hr 03/17/18 03/17/18 03/17/18 05:11 05:11 05:11 Hgb Hct Plt Count Lupus Anticoagulant see below H LA PTT Baseline 51 H Heparin Anti-Xa Level Sodium Potassium Chloride Carbon Dioxide Anion Gap BUN Creatinine Estimated GFR BUN/Creatinine Ratio Glucose Calcium Complement C3 143 Complement C4 23 Hep Bs Antigen Hep B Core IgM Ab Hepatitis C Antibody 03/18/18 03/18/18 03/19/18 13:11 15:12 04:41 Hgb Hct Plt Count Lupus Anticoagulant LA PTT Baseline Heparin Anti-Xa Level 1.05 H Sodium 137 Potassium 4.6 Chloride 100.9 Carbon Dioxide 23 D Anion Gap 18 BUN 41 H Creatinine 11.9 H Estimated GFR 3 BUN/Creatinine Ratio 3 Glucose 81 Calcium 8.0 L Complement C3 Complement C4 Hep Bs Antigen Non-reactive Hep B Core IgM Ab Non-reactive Hepatitis C Antibody Non-reactive 03/19/18 03/19/18 04:41 04:41 Hgb 10.3 Hct 30.9 Plt Count 224 Lupus Anticoagulant LA PTT Baseline Heparin Anti-Xa Level 0.81 H Sodium Potassium Chloride Carbon Dioxide Anion Gap BUN Creatinine Estimated GFR BUN/Creatinine Ratio Glucose Calcium Complement C3 Complement C4 Hep Bs Antigen Hep B Core IgM Ab Hepatitis C Antibody
--- NOTE | 2018-03-19 15:19 | Progress Note ---
Assessment and Plan S/p VC which is functioning well by report. S/p venous thrombolysis/thrombectomy. Currently on Heparin drip. Eliquis stopped with concerns that it may have triggered a rash. Pt also started antihypertensive agent at the same time. This was held and rash has been held. Pt will need to be converted back to oral anticoagulant prior to d/c. Likely either attempt to restart Eliquis (and monitor for allergic response) vs Coumadin (which will take several days to become therapeutic). Nephrology monitoring for renal recovery. If renal function does not recover she will likely require conversion of VC to PC prior to d/c. - Patient Problems (1) May-Thurner syndrome Current Visit: Yes Status: Acute (2) Acute deep vein thrombosis (DVT) of left iliofemoral vein Current Visit: Yes Status: Acute (3) ARF (acute renal failure) Current Visit: Yes Status: Acute Subjective Date of service: 03/19/18 Principal diagnosis: left leg DVT Interval history: Pt awake and alert. C/o diffuse swelling. Rash improving. Objective - Constitutional Vitals: Vital Signs - 12hr 03/19/18 03/19/18 03/19/18 05:37 10:14 11:29 Temperature 100.6 F H 99.0 F Pulse Rate 96 H 87 Respiratory 20 20 Rate Blood Pressure 121/53 115/55 98/59 O2 Sat by Pulse 97 100 Oximetry General appearance: Present: no acute distress - EENT Eyes: EOM intact ENT: hearing intact - Neck Neck: supple (RIJ VC in place without erythema or drainage appreciated.) - Respiratory Respiratory effort: normal Extremities: no ischemia - Neurologic Neurologic: no focal deficits - Psychiatric Psychiatric: appropriate mood/affect, intact judgment & insight, cooperative - Labs CBC & Chem 7: 03/19/18 04:41 03/19/18 04:41 Labs: Abnormal lab results 03/17/18 03/18/18 03/19/18 Range/Units 05:11 15:12 04:41 Lupus Anticoagulant see below H LA PTT Baseline 51 H (<=40) sec Heparin Anti-Xa Level 1.05 H (0.3-0.7) U.I./ml BUN 41 H (7-17) mg/dL Creatinine 11.9 H (0.7-1.2) mg/dL Calcium 8.0 L (8.4-10.2) mg/dL 03/19/18 Range/Units 04:41 Lupus Anticoagulant LA PTT Baseline (<=40) sec Heparin Anti-Xa Level 0.81 H (0.3-0.7) U.I./ml BUN (7-17) mg/dL Creatinine (0.7-1.2) mg/dL Calcium (8.4-10.2) mg/dL
[2018-03-19 20:04] LABS: Myeloperoxidase Antibody <1.0 AI (<1.0)
[2018-03-19] MEDS: BENADRYL IV PRN (23:31)
[2018-03-19] MEDS: HEPARIN/ 0.45% NACL-25,000 UNIT/500 ML 25,000 UNIT/500 ML BAG IV SCH (23:37)
--- NOTE | 2018-03-20 08:13 | Progress Note ---
Assessment and Plan 1. Acute kidney injury: Likely ATN in the setting of NSAIDs and IV contrast. Complements negative. RAY, ANCA and Lupus anticoagulant are pending. Patient was started on hemodialysis 2 days ago due to declining renal function and suspected uremic symptoms. NO improvement in the renal function. HD today. Renal prognosis is guarded. 2. Extensive DVT: Followed by Heme-Onc. 3. Volume overload: UF with HD. 4. Anemia. Subjective Date of service: 03/20/18 Principal diagnosis: left leg DVT Interval history: Patient was seen and examined at the bedside. Patient c/o bilateral leg swelling and blisters over right arm. Objective - Vital Signs Vital signs: Vital Signs - 12hr 03/19/18 03/20/18 23:32 06:32 Temperature 99.3 F 99.5 F Pulse Rate 99 H 92 H Respiratory 18 18 Rate Blood Pressure 112/53 106/50 O2 Sat by Pulse 96 100 Oximetry - General Appearance General appearance: well-developed, well-nourished, appears stated age, obese, other (not in distress) EENT: ATNC, PERRL, mucous membranes moist, hearing intact, vision intact Neck: supple Respiratory: Present: Clear to Ascultation Cardiology: regular, S1S2, no murmurs Gastrointestinal: normoactive bowel sounds, no tenderness, obese Integumentary: other (multiple small blisters over the b/l UE) Neurologic: no focal deficit, no asterixis, alert and oriented x3 Musculoskeletal: other (bilateral 1+ edema noted) Psychiatric: cooperative - Lab 03/21/18 05:05 03/21/18 05:05 Most recent lab results Calcium 8.0 mg/dL (8.4-10.2) L 03/19/18 04:41 Phosphorus 3.90 mg/dL (2.5-4.5) 03/15/18 04:57 Urine Creatinine 67.5 mg/dL (0.1-20.0) H 03/14/18 17:43 Urine Sodium 79 mmol/L 03/14/18 17:43
[2018-03-20 08:39] LABS: Hematocrit 31.2 % (30.3-42.9); Hemoglobin 10.3 gm/dl (10.1-14.3); Mean Corpuscular HGB Conc 33 % (30-34); Mean Corpuscular Hemoglobin 27 pg (28-32); Mean Corpuscular Volume 83 fl (79-97); Platelet Count 225 K/mm3 (140-440); Red Blood Count 3.75 M/mm3 (3.65-5.03); Red Cell Distribution Width 15.7 % (13.2-15.2)
[2018-03-20 08:59] LABS: Calcium 7.9 mg/dL (8.4-10.2)
[2018-03-20] MEDS ORDERED: NACL 0.9% 100 ML IV PRN (09:53)
[2018-03-20] MEDS: LEVAQUIN PO SCH (10:35)
[2018-03-20] MEDS: SODIUM CHLORIDE FLUSH SYRINGE 10 ML IV SCH ×2 (10:36→23:35)
[2018-03-20 11:33] LABS: Basophils % (Manual) 0 % (0.0-1.8); Eosinophils % (Manual) 0 % (0.0-4.3); Total Cells Counted 100
[2018-03-20 11:34] LABS: Anisocytosis 1+
--- NOTE | 2018-03-20 11:39 | Progress Note ---
Assessment and Plan Assessment and plan: Acute DVT left lower extremity, extensive. s/p thrombectomy, angioplasty and stent placement 03/11 Continue Eliquis. Acute kidney injury, due to ATN in the setting of NSAIDs and contrast nephropathy Patient was started on hemodialysis yesterday due to declining renal function and suspected uremic symptoms. RAY, ANCA, Complements and Lupus anticoagulant ordered. Complements negative. Rash and nonspecific skin eruption. Patient has rash unsure if secondary to anticoagulant versus antihypertensive. Changed antihypertensive from amlodipine to atenolol. ? Levaquin allergy. Levaquin has been discontinued. Metabolic acidosis due to KETTY Obesity. Discussed diet and exercise to lose weight Smoking cessation counseling done. She states she has been using patch to quit smoking Hypertensive urgency. Continue Amlodipine 5mg po daily Hydralazine iv prn Full code status History Interval history: No new issues overnight Hospitalist Physical - Constitutional Vitals: Temp Pulse Resp BP Pulse Ox 99.5 F 92 H 18 106/50 100 03/20/18 06:32 03/20/18 06:32 03/20/18 06:32 03/20/18 06:32 03/20/18 06:32 General appearance: Present: no acute distress - EENT Eyes: Present: PERRL, EOM intact ENT: hearing intact, clear oral mucosa, dentition normal - Neck Neck: Present: supple, normal ROM - Respiratory Respiratory effort: normal Respiratory: bilateral: CTA - Cardiovascular Rhythm: regular Heart Sounds: Present: S1 & S2. Absent: gallop, rub - Extremities Extremities: no ischemia, No edema, Full ROM - Abdominal General gastrointestinal: soft, non-tender, non-distended, normal bowel sounds - Integumentary Integumentary: Present: clear, warm, dry - Neurologic Neurologic: CNII-XII intact, moves all extremities Results - Labs CBC & Chem 7: 03/20/18 07:57 03/20/18 07:57 Labs: Laboratory Last Values WBC 23.2 K/mm3 (4.5-11.0) H 03/20/18 07:57 RBC 3.75 M/mm3 (3.65-5.03) 03/20/18 07:57 Hgb 10.3 gm/dl (10.1-14.3) 03/20/18 07:57 Hct 31.2 % (30.3-42.9) 03/20/18 07:57 MCV 83 fl (79-97) 03/20/18 07:57 MCH 27 pg (28-32) L 03/20/18 07:57 MCHC 33 % (30-34) 03/20/18 07:57 RDW 15.7 % (13.2-15.2) H 03/20/18 07:57 Plt Count 225 K/mm3 (140-440) 03/20/18 07:57 Lymph % (Auto) 5.2 % (13.4-35.0) L 03/18/18 06:00 [place] % (Auto) 3.4 % (0.0-7.3) 03/18/18 06:00 Eos % (Auto) 4.0 % (0.0-4.3) 03/18/18 06:00 Baso % (Auto) 0.1 % (0.0-1.8) 03/18/18 06:00 Lymph # 0.7 K/mm3 (1.2-5.4) L 03/18/18 06:00 [place] # 0.4 K/mm3 (0.0-0.8) 03/18/18 06:00 Eos # 0.5 K/mm3 (0.0-0.4) H 03/18/18 06:00 Baso # 0.0 K/mm3 (0.0-0.1) 03/18/18 06:00 Add Manual Diff Complete 03/20/18 07:57 Total Counted 100 03/20/18 07:57 Seg Neutrophils % 87.3 % (40.0-70.0) H 03/18/18 06:00 Seg Neuts % (Manual) 97.0 % (40.0-70.0) H 03/20/18 07:57 Band Neutrophils % 0 % 03/20/18 07:57 Lymphocytes % (Manual) 1.0 % (13.4-35.0) L 03/20/18 07:57 Reactive Lymphs % (Man) 0 % 03/20/18 07:57 Monocytes % (Manual) 2.0 % (0.0-7.3) 03/20/18 07:57 Eosinophils % (Manual) 0 % (0.0-4.3) 03/20/18 07:57 Basophils % (Manual) 0 % (0.0-1.8) 03/20/18 07:57 Metamyelocytes % 0 % 03/20/18 07:57 Myelocytes % 0 % 03/20/18 07:57 Promyelocytes % 0 % 03/20/18 07:57 Blast Cells % 0 % 03/20/18 07:57 Nucleated RBC % Not Reportable 03/20/18 07:57 Seg Neutrophils # 11.6 K/mm3 (1.8-7.7) H 03/18/18 06:00 Seg Neutrophils # Man 22.5 K/mm3 (1.8-7.7) H 03/20/18 07:57 Band Neutrophils # 0.0 K/mm3 03/20/18 07:57 Lymphocytes # (Manual) 0.2 K/mm3 (1.2-5.4) L 03/20/18 07:57 Abs React Lymphs (Man) 0.0 K/mm3 03/20/18 07:57 Monocytes # (Manual) 0.5 K/mm3 (0.0-0.8) 03/20/18 07:57 Eosinophils # (Manual) 0.0 K/mm3 (0.0-0.4) 03/20/18 07:57 Basophils # (Manual) 0.0 K/mm3 (0.0-0.1) 03/20/18 07:57 Metamyelocytes # 0.0 K/mm3 03/20/18 07:57 Myelocytes # 0.0 K/mm3 03/20/18 07:57 Promyelocytes # 0.0 K/mm3 03/20/18 07:57 Blast Cells # 0.0 K/mm3 03/20/18 07:57 WBC Morphology Not Reportable 03/20/18 07:57 Hypersegmented Neuts Not Reportable 03/20/18 07:57 Hyposegmented Neuts Not Reportable 03/20/18 07:57 Hypogranular Neuts Not Reportable 03/20/18 07:57 Smudge Cells Not Reportable 03/20/18 07:57 Toxic Granulation Not Reportable 03/20/18 07:57 Toxic Vacuolation Not Reportable 03/20/18 07:57 Dohle Bodies Not Reportable 03/20/18 07:57 Pelger-Huet Anomaly Not Reportable 03/20/18 07:57 Kristy Rods Not Reportable 03/20/18 07:57 Platelet Estimate Appears normal 03/20/18 07:57 Clumped Platelets Not Reportable 03/20/18 07:57 Plt Clumps, EDTA Not Reportable 03/20/18 07:57 Large Platelets Not Reportable 03/20/18 07:57 Giant Platelets Not Reportable 03/20/18 07:57 Platelet Satelliting Not Reportable 03/20/18 07:57 Plt Morphology Comment Not Reportable 03/20/18 07:57 RBC Morphology Not Reportable 03/20/18 07:57 Dimorphic RBCs Not Reportable 03/20/18 07:57 Polychromasia Not Reportable 03/20/18 07:57 Hypochromasia Not Reportable 03/20/18 07:57 Poikilocytosis Not Reportable 03/20/18 07:57 Anisocytosis 1+ 03/20/18 07:57 Microcytosis Not Reportable 03/20/18 07:57 Macrocytosis Not Reportable 03/20/18 07:57 Spherocytes Not Reportable 03/20/18 07:57 Pappenheimer Bodies Not Reportable 03/20/18 07:57 Sickle Cells Not Reportable 03/20/18 07:57 Target Cells Not Reportable 03/20/18 07:57 Tear Drop Cells Not Reportable 03/20/18 07:57 Ovalocytes Not Reportable 03/20/18 07:57 Helmet Cells Not Reportable 03/20/18 07:57 [place] Bodies Not Reportable 03/20/18 07:57 [place] Rings Not Reportable 03/20/18 07:57 Chaim Cells Not Reportable 03/20/18 07:57 Bite Cells Not Reportable 03/20/18 07:57 Crenated Cell Not Reportable 03/20/18 07:57 Elliptocytes Rare 03/20/18 07:57 Acanthocytes (Spur) Not Reportable 03/20/18 07:57 Rouleaux Not Reportable 03/20/18 07:57 Hemoglobin C Crystals Not Reportable 03/20/18 07:57 Schistocytes Not Reportable 03/20/18 07:57 Malaria parasites Not Reportable 03/20/18 07:57 Anish Bodies Not Reportable 03/20/18 07:57 Hem Pathologist Commnt No 03/20/18 07:57 PT 16.4 Sec. (12.2-14.9) H 03/17/18 13:18 INR 1.25 (0.87-1.13) H 03/17/18 13:18 APTT 34.7 Sec. (24.2-36.6) 03/17/18 13:18 D-Dimer 7951.75 ng/mlDDU (0-234) H 03/11/18 00:03 Lupus Anticoagulant see below H 03/17/18 05:11 LA PTT Baseline 51 sec (<=40) H 03/17/18 05:11 Heparin Anti-Xa Level 0.79 U.I./ml (0.3-0.7) H 03/20/18 07:57 Sodium 135 mmol/L (137-145) L 03/20/18 07:57 Potassium 4.6 mmol/L (3.6-5.0) 03/20/18 07:57 Chloride 98.4 mmol/L (98-107) 03/20/18 07:57 Carbon Dioxide 21 mmol/L (22-30) L 03/20/18 07:57 Anion Gap 20 mmol/L 03/20/18 07:57 BUN 47 mg/dL (7-17) H 03/20/18 07:57 Creatinine 13.6 mg/dL (0.7-1.2) H 03/20/18 07:57 Estimated GFR 3 ml/min 03/20/18 07:57 BUN/Creatinine Ratio 3 % 03/20/18 07:57 Glucose 71 mg/dL (65-100) 03/20/18 07:57 Lactic Acid 1.70 mmol/L (0.7-2.0) 03/11/18 07:11 Calcium 7.9 mg/dL (8.4-10.2) L 03/20/18 07:57 Phosphorus 3.90 mg/dL (2.5-4.5) 03/15/18 04:57 Total Bilirubin 0.40 mg/dL (0.1-1.2) 03/18/18 06:00 AST 11 units/L (5-40) 03/18/18 06:00 ALT 16 units/L (7-56) 03/18/18 06:00 Alkaline Phosphatase 76 units/L (35-129) 03/18/18 06:00 Total Creatine Kinase 339 units/L (30-135) H 03/13/18 04:45 Total Protein 5.7 g/dL (6.3-8.2) L 03/18/18 06:00 Albumin 3.0 g/dL (3.9-5) L 03/18/18 06:00 Albumin/Globulin Ratio 1.1 % 03/18/18 06:00 Urine Color Yellow (Yellow) 03/14/18 17:43 Urine Turbidity Cloudy (Clear) 03/14/18 17:43 Urine pH 6.0 (5.0-7.0) 03/14/18 17:43 Ur Specific [place] 1.012 (1.003-1.030) 03/14/18 17:43 Urine Protein 100 mg/dl mg/dL (Negative) 03/14/18 17:43 Urine Glucose (UA) 50 mg/dL (Negative) 03/14/18 17:43 Urine Ketones Neg mg/dL (Negative) 03/14/18 17:43 Urine Blood Lg (Negative) 03/14/18 17:43 Urine Nitrite Neg (Negative) 03/14/18 17:43 Urine Bilirubin Neg (Negative) 03/14/18 17:43 Urine Urobilinogen < 2.0 mg/dL (<2.0) 03/14/18 17:43 Ur Leukocyte Esterase Mod (Negative) 03/14/18 17:43 Urine WBC (Auto) 66.0 /HPF (0.0-6.0) H 03/14/18 17:43 Urine RBC (Auto) 9.0 /HPF (0.0-6.0) 03/14/18 17:43 U Epithel Cells (Auto) 45.0 /HPF (0-13.0) H 03/14/18 17:43 Urine Bacteria (Auto) 1+ /HPF (Negative) 03/11/18 10:07 Urine WBC Clumps 2+ /HPF 03/14/18 17:43 Urine Mucus 3+ /HPF 03/11/18 10:07 Urine Yeast (Budding) 1+ /HPF 03/14/18 17:43 Urine Creatinine 67.5 mg/dL (0.1-20.0) H 03/14/18 17:43 Urine Sodium 79 mmol/L 03/14/18 17:43 Urine HCG, Qual Negative (Negative) 03/11/18 10:07 Proteinase 3 (PR3) Ab <1.0 AI (<1.0) 03/17/18 05:11 Myeloperoxidase Ab <1.0 AI (<1.0) 03/17/18 05:11 Complement C3 143 mg/dL (83-193) 03/17/18 05:11 Complement C4 23 mg/dL (15-57) 03/17/18 05:11 Hep Bs Antigen Non-reactive (Negative) 03/18/18 13:11 Hep B Core IgM Ab Non-reactive (NonReactive) 03/18/18 13:11 Hepatitis C Antibody Non-reactive (NonReactive) 03/18/18 13:11
--- NOTE | 2018-03-20 14:59 | Hem/Onc Progress Note ---
Assessment and Plan # DVT left leg s/p thrombectomy - ? 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 - post procedure - nephrology following - HD done # rash - nape of neck and chest - pt thinks it is eliquis - option of xarelto - rash better 03/18 - pt on heparin in the interim 03/20 - upper extremity edema - IVF stopped - Patient Problems (1) Deep vein thrombosis Onset Date: ~03/11/18 Current Visit: Yes Status: Acute Qualifiers: DVT location: lower extremity Affected thrombotic vein of extremity: unspecified lower extremity proximal vein Chronicity: acute Laterality: left Qualified Code(s): I82.4Y2 - Acute embolism and thrombosis of unspecified deep veins of left proximal lower extremity Subjective Date of service: 03/20/18 Principal diagnosis: dvt left elg Interval history: rising registered nurse midwife - nephrology following leg swelling and pain better rash neck and chest area - pt thinks it may be eliquis. - stopped same - rash better - on IV heparin Upper extremity edematous s/p HD Objective - Constitutional Vitals: Last Vital Signs Temp 99.1 F 03/20/18 11:51 Pulse 86 03/20/18 11:51 Resp 20 03/20/18 11:51 BP 121/69 03/20/18 11:51 Pulse Ox 100 03/20/18 11:51 Pain Intensity (0-10): 1/10 General appearance: mild distress Performance status: 2- selfcare, ambulatory - EENT Eyes: PERRL ENT: clear oral mucosa Lymph node exam: negative cervical, negative supraclavicular - Neck Neck: normal ROM - Respiratory Respiratory effort: Positive: normal Respiratory: bilateral: CTA - Cardiovascular Heart Sounds: Present: S1 & S2 Extremity abnormal: edema (upper extremities) - Gastrointestinal General gastrointestinal: Present: soft, non-tender Rectal Exam: deferred - Genitourinary Female genitourinary: Present: deferred - Musculoskeletal Musculoskeletal: strength equal bilaterally - Neurologic Neurologic: moves all extremities - Psychiatric Psychiatric: appropriate mood/affect, cooperative - Labs Lab Results: Laboratory Results - last 24 hr 03/17/18 03/19/18 03/19/18 05:11 15:32 23:27 WBC RBC Hgb Hct MCV MCH MCHC RDW Plt Count Add Manual Diff Total Counted Seg Neuts % (Manual) Band Neutrophils % Lymphocytes % (Manual) Reactive Lymphs % (Man) Monocytes % (Manual) Eosinophils % (Manual) Basophils % (Manual) Metamyelocytes % Myelocytes % Promyelocytes % Blast Cells % Nucleated RBC % Seg Neutrophils # Man Band Neutrophils # Lymphocytes # (Manual) Abs React Lymphs (Man) Monocytes # (Manual) Eosinophils # (Manual) Basophils # (Manual) Metamyelocytes # Myelocytes # Promyelocytes # Blast Cells # WBC Morphology Hypersegmented Neuts Hyposegmented Neuts Hypogranular Neuts Smudge Cells Toxic Granulation Toxic Vacuolation Dohle Bodies Pelger-Huet Anomaly Kristy Rods Platelet Estimate Clumped Platelets Plt Clumps, EDTA Large Platelets Giant Platelets Platelet Satelliting Plt Morphology Comment RBC Morphology Dimorphic RBCs Polychromasia Hypochromasia Poikilocytosis Anisocytosis Microcytosis Macrocytosis Spherocytes Pappenheimer Bodies Sickle Cells Target Cells Tear Drop Cells Ovalocytes Helmet Cells [place] Bodies [place] Rings Chaim Cells Bite Cells Crenated Cell Elliptocytes Acanthocytes (Spur) Rouleaux Hemoglobin C Crystals Schistocytes Malaria parasites Anish Bodies Hem Pathologist Commnt Heparin Anti-Xa Level 0.88 H 0.88 H Sodium Potassium Chloride Carbon Dioxide Anion Gap BUN Creatinine Estimated GFR BUN/Creatinine Ratio Glucose Calcium Proteinase 3 (PR3) Ab <1.0 Myeloperoxidase Ab <1.0 03/20/18 03/20/18 03/20/18 07:57 07:57 07:57 WBC 23.2 H RBC 3.75 Hgb 10.3 Hct 31.2 MCV 83 MCH 27 L MCHC 33 RDW 15.7 H Plt Count 225 Add Manual Diff Complete Total Counted 100 Seg Neuts % (Manual) 97.0 H Band Neutrophils % 0 Lymphocytes % (Manual) 1.0 L Reactive Lymphs % (Man) 0 Monocytes % (Manual) 2.0 Eosinophils % (Manual) 0 Basophils % (Manual) 0 Metamyelocytes % 0 Myelocytes % 0 Promyelocytes % 0 Blast Cells % 0 Nucleated RBC % Not Reportable Seg Neutrophils # Man 22.5 H Band Neutrophils # 0.0 Lymphocytes # (Manual) 0.2 L Abs React Lymphs (Man) 0.0 Monocytes # (Manual) 0.5 Eosinophils # (Manual) 0.0 Basophils # (Manual) 0.0 Metamyelocytes # 0.0 Myelocytes # 0.0 Promyelocytes # 0.0 Blast Cells # 0.0 WBC Morphology Not Reportable Hypersegmented Neuts Not Reportable Hyposegmented Neuts Not Reportable Hypogranular Neuts Not Reportable Smudge Cells Not Reportable Toxic Granulation Not Reportable Toxic Vacuolation Not Reportable Dohle Bodies Not Reportable Pelger-Huet Anomaly Not Reportable Kristy Rods Not Reportable Platelet Estimate Appears normal Clumped Platelets Not Reportable Plt Clumps, EDTA Not Reportable Large Platelets Not Reportable Giant Platelets Not Reportable Platelet Satelliting Not Reportable Plt Morphology Comment Not Reportable RBC Morphology Not Reportable Dimorphic RBCs Not Reportable Polychromasia Not Reportable Hypochromasia Not Reportable Poikilocytosis Not Reportable Anisocytosis 1+ Microcytosis Not Reportable Macrocytosis Not Reportable Spherocytes Not Reportable Pappenheimer Bodies Not Reportable Sickle Cells Not Reportable Target Cells Not Reportable Tear Drop Cells Not Reportable Ovalocytes Not Reportable Helmet Cells Not Reportable [place] Bodies Not Reportable [place] Rings Not Reportable [place] Cells Not Reportable Bite Cells Not Reportable Crenated Cell Not Reportable Elliptocytes Rare Acanthocytes (Spur) Not Reportable Rouleaux Not Reportable Hemoglobin C Crystals Not Reportable Schistocytes Not Reportable Malaria parasites Not Reportable Anish Bodies Not Reportable Hem Pathologist Commnt No Heparin Anti-Xa Level 0.79 H Sodium 135 L Potassium 4.6 Chloride 98.4 Carbon Dioxide 21 L Anion Gap 20 BUN 47 H Creatinine 13.6 H Estimated GFR 3 BUN/Creatinine Ratio 3 Glucose 71 Calcium 7.9 L Proteinase 3 (PR3) Ab Myeloperoxidase Ab
[2018-03-20] MEDS: TYLENOL PO PRN (16:29)
[2018-03-20] MEDS: ZOFRAN IV PRN (16:31)
[2018-03-20] MEDS ORDERED: NACL 0.9 (PRIMING MACHINE ONLY DIALYSIS) MC ONE (18:17)
[2018-03-20 21:45] LABS: ANA Screen, IFA Negative (Negative)
[2018-03-20] MEDS ORDERED: ELIQUIS PO SCH (22:00)
[2018-03-21 06:56] LABS: Hemoglobin 8.4 gm/dl (10.1-14.3)
[2018-03-21 07:03] LABS: Hematocrit 26.8 % (30.3-42.9)
[2018-03-21 07:04] LABS: Calcium 8.2 mg/dL (8.4-10.2)
--- NOTE | 2018-03-21 07:22 | Hem/Onc Progress Note ---
Assessment and Plan # DVT left leg s/p thrombectomy - ? 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 - post procedure - nephrology following - HD done # rash - nape of neck and chest - pt thinks it is eliquis - option of xarelto - rash better 03/18 - pt on heparin in the interim 03/20 - upper extremity edema - IVF stopped heparin - anti X a being followed Dr Coyle will cover me next week - Patient Problems (1) Deep vein thrombosis Onset Date: ~03/11/18 Current Visit: Yes Status: Acute Qualifiers: DVT location: lower extremity Affected thrombotic vein of extremity: unspecified lower extremity proximal vein Chronicity: acute Laterality: left Qualified Code(s): I82.4Y2 - Acute embolism and thrombosis of unspecified deep veins of left proximal lower extremity Subjective Date of service: 03/21/18 Principal diagnosis: left leg DVT Interval history: rising java xml developer - nephrology following leg swelling and pain better rash neck and chest area - pt thinks it may be eliquis. - stopped same - rash better - on IV heparin Upper extremity edematous s/p HD on 03/20 urinating - but pt says not a lot. Objective - Exam Narrative Exam: pt has vesicular/ bullous lesions in arm - Constitutional Vitals: Last Vital Signs Temp 99.1 F 03/21/18 06:30 Pulse 92 H 03/21/18 06:30 Resp 18 03/21/18 06:30 BP 108/56 03/21/18 06:30 Pulse Ox 95 03/21/18 06:30 Pain Intensity (0-10): 2/10 (arm and legs) General appearance: mild distress Performance status: 2- selfcare, ambulatory - EENT Eyes: PERRL ENT: clear oral mucosa Lymph node exam: negative cervical, negative supraclavicular - Neck Neck: supple - Respiratory Respiratory effort: Positive: normal Respiratory: bilateral: CTA - Cardiovascular Heart Sounds: Present: S1 & S2 Extremity abnormal: edema - Gastrointestinal General gastrointestinal: Present: soft, non-tender Rectal Exam: deferred - Genitourinary Female genitourinary: Present: deferred - Musculoskeletal Musculoskeletal: strength equal bilaterally - Neurologic Neurologic: moves all extremities - Psychiatric Psychiatric: appropriate mood/affect, cooperative - Labs Lab Results: Laboratory Results - last 24 hr 03/17/18 03/20/18 03/20/18 05:11 07:57 07:57 WBC 23.2 H RBC 3.75 Hgb 10.3 Hct 31.2 MCV 83 MCH 27 L MCHC 33 RDW 15.7 H Plt Count 225 Add Manual Diff Complete Total Counted 100 Seg Neuts % (Manual) 97.0 H Band Neutrophils % 0 Lymphocytes % (Manual) 1.0 L Reactive Lymphs % (Man) 0 Monocytes % (Manual) 2.0 Eosinophils % (Manual) 0 Basophils % (Manual) 0 Metamyelocytes % 0 Myelocytes % 0 Promyelocytes % 0 Blast Cells % 0 Nucleated RBC % Not Reportable Seg Neutrophils # Man 22.5 H Band Neutrophils # 0.0 Lymphocytes # (Manual) 0.2 L Abs React Lymphs (Man) 0.0 Monocytes # (Manual) 0.5 Eosinophils # (Manual) 0.0 Basophils # (Manual) 0.0 Metamyelocytes # 0.0 Myelocytes # 0.0 Promyelocytes # 0.0 Blast Cells # 0.0 WBC Morphology Not Reportable Hypersegmented Neuts Not Reportable Hyposegmented Neuts Not Reportable Hypogranular Neuts Not Reportable Smudge Cells Not Reportable Toxic Granulation Not Reportable Toxic Vacuolation Not Reportable Dohle Bodies Not Reportable Pelger-Huet Anomaly Not Reportable Kristy Rods Not Reportable Platelet Estimate Appears normal Clumped Platelets Not Reportable Plt Clumps, EDTA Not Reportable Large Platelets Not Reportable Giant Platelets Not Reportable Platelet Satelliting Not Reportable Plt Morphology Comment Not Reportable RBC Morphology Not Reportable Dimorphic RBCs Not Reportable Polychromasia Not Reportable Hypochromasia Not Reportable Poikilocytosis Not Reportable Anisocytosis 1+ Microcytosis Not Reportable Macrocytosis Not Reportable Spherocytes Not Reportable Pappenheimer Bodies Not Reportable Sickle Cells Not Reportable Target Cells Not Reportable Tear Drop Cells Not Reportable Ovalocytes Not Reportable Helmet Cells Not Reportable [place] Bodies Not Reportable [place] Rings Not Reportable [place] Cells Not Reportable Bite Cells Not Reportable Crenated Cell Not Reportable Elliptocytes Rare Acanthocytes (Spur) Not Reportable Rouleaux Not Reportable Hemoglobin C Crystals Not Reportable Schistocytes Not Reportable Malaria parasites Not Reportable Anish Bodies Not Reportable Hem Pathologist Commnt No Heparin Anti-Xa Level Sodium 135 L Potassium 4.6 Chloride 98.4 Carbon Dioxide 21 L Anion Gap 20 BUN 47 H Creatinine 13.6 H Estimated GFR 3 BUN/Creatinine Ratio 3 Glucose 71 Calcium 7.9 L RAY Screen Negative 03/20/18 03/20/18 03/21/18 07:57 16:40 05:05 WBC RBC Hgb 8.4 L Hct 26.8 L MCV MCH MCHC RDW Plt Count 185 Add Manual Diff Total Counted Seg Neuts % (Manual) Band Neutrophils % Lymphocytes % (Manual) Reactive Lymphs % (Man) Monocytes % (Manual) Eosinophils % (Manual) Basophils % (Manual) Metamyelocytes % Myelocytes % Promyelocytes % Blast Cells % Nucleated RBC % Seg Neutrophils # Man Band Neutrophils # Lymphocytes # (Manual) Abs React Lymphs (Man) Monocytes # (Manual) Eosinophils # (Manual) Basophils # (Manual) Metamyelocytes # Myelocytes # Promyelocytes # Blast Cells # WBC Morphology Hypersegmented Neuts Hyposegmented Neuts Hypogranular Neuts Smudge Cells Toxic Granulation Toxic Vacuolation Dohle Bodies Pelger-Huet Anomaly Kristy Rods Platelet Estimate Clumped Platelets Plt Clumps, EDTA Large Platelets Giant Platelets Platelet Satelliting Plt Morphology Comment RBC Morphology Dimorphic RBCs Polychromasia Hypochromasia Poikilocytosis Anisocytosis Microcytosis Macrocytosis Spherocytes Pappenheimer Bodies Sickle Cells Target Cells Tear Drop Cells Ovalocytes Helmet Cells [place] Bodies [place] Rings [place] Cells Bite Cells Crenated Cell Elliptocytes Acanthocytes (Spur) Rouleaux Hemoglobin C Crystals Schistocytes Malaria parasites Anish Bodies Hem Pathologist Commnt Heparin Anti-Xa Level 0.79 H 0.59 Sodium Potassium Chloride Carbon Dioxide Anion Gap BUN Creatinine Estimated GFR BUN/Creatinine Ratio Glucose Calcium RAY Screen 03/21/18 05:05 WBC RBC Hgb Hct MCV MCH MCHC RDW Plt Count Add Manual Diff Total Counted Seg Neuts % (Manual) Band Neutrophils % Lymphocytes % (Manual) Reactive Lymphs % (Man) Monocytes % (Manual) Eosinophils % (Manual) Basophils % (Manual) Metamyelocytes % Myelocytes % Promyelocytes % Blast Cells % Nucleated RBC % Seg Neutrophils # Man Band Neutrophils # Lymphocytes # (Manual) Abs React Lymphs (Man) Monocytes # (Manual) Eosinophils # (Manual) Basophils # (Manual) Metamyelocytes # Myelocytes # Promyelocytes # Blast Cells # WBC Morphology Hypersegmented Neuts Hyposegmented Neuts Hypogranular Neuts Smudge Cells Toxic Granulation Toxic Vacuolation Dohle Bodies Pelger-Huet Anomaly Kristy Rods Platelet Estimate Clumped Platelets Plt Clumps, EDTA Large Platelets Giant Platelets Platelet Satelliting Plt Morphology Comment RBC Morphology Dimorphic RBCs Polychromasia Hypochromasia Poikilocytosis Anisocytosis Microcytosis Macrocytosis Spherocytes Pappenheimer Bodies Sickle Cells Target Cells Tear Drop Cells Ovalocytes Helmet Cells [place] Bodies [place] Rings Chaim Cells Bite Cells Crenated Cell Elliptocytes Acanthocytes (Spur) Rouleaux Hemoglobin C Crystals Schistocytes Malaria parasites Anish Bodies Hem Pathologist Commnt Heparin Anti-Xa Level Sodium 138 Potassium 4.2 Chloride 98.6 Carbon Dioxide 24 Anion Gap 20 BUN 30 H Creatinine 10.2 H Estimated GFR 4 BUN/Creatinine Ratio 3 Glucose 66 Calcium 8.2 L RAY Screen
[2018-03-21 07:44] LABS: Hepatitis A Antibody IgM NonReactive (NonReactive)
--- NOTE | 2018-03-21 09:15 | Progress Note ---
Assessment and Plan 1. Acute kidney injury: Likely ATN in the setting of NSAIDs and IV contrast. Complements negative, RAY and ANCA are negative. Lupus anticoagulant is pending. Patient was started on hemodialysis due to declining renal function and suspected uremic symptoms. She was last dialyzed yesterday. Monitor renal function. Renal prognosis is guarded. 2. Extensive DVT: Followed by Heme-Onc. 3. Volume overload: UF with HD. Lasix as needed. 4. Anemia. Subjective Date of service: 03/21/18 Principal diagnosis: left leg DVT Interval history: Patient was seen and examined at the bedside. Patient c/o bilateral leg swelling and blisters over the arms. Objective - Vital Signs Vital signs: Vital Signs - 12hr 03/20/18 03/21/18 22:56 06:30 Temperature 98.3 F 99.1 F Pulse Rate 94 H 92 H Respiratory 16 18 Rate Blood Pressure 90/44 108/56 O2 Sat by Pulse 97 95 Oximetry - General Appearance General appearance: well-developed, well-nourished, appears stated age, obese, other (right IJ temp catheter) EENT: ATNC, PERRL, mucous membranes moist, hearing intact, vision intact Neck: supple Respiratory: Present: Clear to Ascultation Cardiology: regular, S1S2, no murmurs Gastrointestinal: normoactive bowel sounds, no tenderness, no distended, obese Integumentary: other (multiple small to medium size blisters noted over the arms ) Neurologic: no focal deficit, no asterixis, alert and oriented x3 Musculoskeletal: other (1+ edema of both LEs noted) Psychiatric: cooperative - Lab 03/21/18 05:05 03/21/18 05:05 Most recent lab results Calcium 8.2 mg/dL (8.4-10.2) L 03/21/18 05:05 Phosphorus 3.90 mg/dL (2.5-4.5) 03/15/18 04:57 Urine Creatinine 67.5 mg/dL (0.1-20.0) H 03/14/18 17:43 Urine Sodium 79 mmol/L 03/14/18 17:43
--- NOTE | 2018-03-21 10:29 | Progress Note ---
Assessment and Plan Assessment and plan: Acute DVT left lower extremity, extensive. s/p thrombectomy, angioplasty and stent placement 03/11 Continue Eliquis. Acute kidney injury, due to ATN in the setting of NSAIDs and contrast nephropathy Patient was started on hemodialysis yesterday due to declining renal function and suspected uremic symptoms. RAY, ANCA, Complements and Lupus anticoagulant ordered. Complements negative. Rash and nonspecific skin eruption. Patient has rash unsure if secondary to anticoagulant versus antihypertensive vs abx. Changed antihypertensive from amlodipine to atenolol. ? Levaquin allergy. Levaquin has been discontinued. Metabolic acidosis due to KETTY Obesity. Discussed diet and exercise to lose weight Smoking cessation counseling done. She states she has been using patch to quit smoking Hypertensive urgency. Continue Amlodipine 5mg po daily Hydralazine iv prn Full code status History Interval history: No new issues overnight Hospitalist Physical - Constitutional Vitals: Temp Pulse Resp BP Pulse Ox 99.1 F 92 H 18 108/56 95 03/21/18 06:30 03/21/18 06:30 03/21/18 06:30 03/21/18 06:30 03/21/18 06:30 General appearance: Present: no acute distress - EENT Eyes: Present: PERRL, EOM intact ENT: hearing intact, clear oral mucosa, dentition normal - Neck Neck: Present: supple, normal ROM - Respiratory Respiratory effort: normal Respiratory: bilateral: CTA - Cardiovascular Rhythm: regular Heart Sounds: Present: S1 & S2. Absent: gallop, rub - Extremities Extremities: no ischemia, No edema, Full ROM - Abdominal General gastrointestinal: soft, non-tender, non-distended, normal bowel sounds - Integumentary Integumentary: Present: clear, warm, dry - Neurologic Neurologic: CNII-XII intact, moves all extremities Results - Labs CBC & Chem 7: 03/21/18 05:05 03/21/18 05:05 Labs: Laboratory Last Values WBC 23.2 K/mm3 (4.5-11.0) H 03/20/18 07:57 RBC 3.75 M/mm3 (3.65-5.03) 03/20/18 07:57 Hgb 8.4 gm/dl (10.1-14.3) L 03/21/18 05:05 Hct 26.8 % (30.3-42.9) L 03/21/18 05:05 MCV 83 fl (79-97) 03/20/18 07:57 MCH 27 pg (28-32) L 03/20/18 07:57 MCHC 33 % (30-34) 03/20/18 07:57 RDW 15.7 % (13.2-15.2) H 03/20/18 07:57 Plt Count 185 K/mm3 (140-440) 03/21/18 05:05 Lymph % (Auto) 5.2 % (13.4-35.0) L 03/18/18 06:00 [place] % (Auto) 3.4 % (0.0-7.3) 03/18/18 06:00 Eos % (Auto) 4.0 % (0.0-4.3) 03/18/18 06:00 Baso % (Auto) 0.1 % (0.0-1.8) 03/18/18 06:00 Lymph # 0.7 K/mm3 (1.2-5.4) L 03/18/18 06:00 [place] # 0.4 K/mm3 (0.0-0.8) 03/18/18 06:00 Eos # 0.5 K/mm3 (0.0-0.4) H 03/18/18 06:00 Baso # 0.0 K/mm3 (0.0-0.1) 03/18/18 06:00 Add Manual Diff Complete 03/20/18 07:57 Total Counted 100 03/20/18 07:57 Seg Neutrophils % 87.3 % (40.0-70.0) H 03/18/18 06:00 Seg Neuts % (Manual) 97.0 % (40.0-70.0) H 03/20/18 07:57 Band Neutrophils % 0 % 03/20/18 07:57 Lymphocytes % (Manual) 1.0 % (13.4-35.0) L 03/20/18 07:57 Reactive Lymphs % (Man) 0 % 03/20/18 07:57 Monocytes % (Manual) 2.0 % (0.0-7.3) 03/20/18 07:57 Eosinophils % (Manual) 0 % (0.0-4.3) 03/20/18 07:57 Basophils % (Manual) 0 % (0.0-1.8) 03/20/18 07:57 Metamyelocytes % 0 % 03/20/18 07:57 Myelocytes % 0 % 03/20/18 07:57 Promyelocytes % 0 % 03/20/18 07:57 Blast Cells % 0 % 03/20/18 07:57 Nucleated RBC % Not Reportable 03/20/18 07:57 Seg Neutrophils # 11.6 K/mm3 (1.8-7.7) H 03/18/18 06:00 Seg Neutrophils # Man 22.5 K/mm3 (1.8-7.7) H 03/20/18 07:57 Band Neutrophils # 0.0 K/mm3 03/20/18 07:57 Lymphocytes # (Manual) 0.2 K/mm3 (1.2-5.4) L 03/20/18 07:57 Abs React Lymphs (Man) 0.0 K/mm3 03/20/18 07:57 Monocytes # (Manual) 0.5 K/mm3 (0.0-0.8) 03/20/18 07:57 Eosinophils # (Manual) 0.0 K/mm3 (0.0-0.4) 03/20/18 07:57 Basophils # (Manual) 0.0 K/mm3 (0.0-0.1) 03/20/18 07:57 Metamyelocytes # 0.0 K/mm3 03/20/18 07:57 Myelocytes # 0.0 K/mm3 03/20/18 07:57 Promyelocytes # 0.0 K/mm3 03/20/18 07:57 Blast Cells # 0.0 K/mm3 03/20/18 07:57 WBC Morphology Not Reportable 03/20/18 07:57 Hypersegmented Neuts Not Reportable 03/20/18 07:57 Hyposegmented Neuts Not Reportable 03/20/18 07:57 Hypogranular Neuts Not Reportable 03/20/18 07:57 Smudge Cells Not Reportable 03/20/18 07:57 Toxic Granulation Not Reportable 03/20/18 07:57 Toxic Vacuolation Not Reportable 03/20/18 07:57 Dohle Bodies Not Reportable 03/20/18 07:57 Pelger-Huet Anomaly Not Reportable 03/20/18 07:57 Kristy Rods Not Reportable 03/20/18 07:57 Platelet Estimate Appears normal 03/20/18 07:57 Clumped Platelets Not Reportable 03/20/18 07:57 Plt Clumps, EDTA Not Reportable 03/20/18 07:57 Large Platelets Not Reportable 03/20/18 07:57 Giant Platelets Not Reportable 03/20/18 07:57 Platelet Satelliting Not Reportable 03/20/18 07:57 Plt Morphology Comment Not Reportable 03/20/18 07:57 RBC Morphology Not Reportable 03/20/18 07:57 Dimorphic RBCs Not Reportable 03/20/18 07:57 Polychromasia Not Reportable 03/20/18 07:57 Hypochromasia Not Reportable 03/20/18 07:57 Poikilocytosis Not Reportable 03/20/18 07:57 Anisocytosis 1+ 03/20/18 07:57 Microcytosis Not Reportable 03/20/18 07:57 Macrocytosis Not Reportable 03/20/18 07:57 Spherocytes Not Reportable 03/20/18 07:57 Pappenheimer Bodies Not Reportable 03/20/18 07:57 Sickle Cells Not Reportable 03/20/18 07:57 Target Cells Not Reportable 03/20/18 07:57 Tear Drop Cells Not Reportable 03/20/18 07:57 Ovalocytes Not Reportable 03/20/18 07:57 Helmet Cells Not Reportable 03/20/18 07:57 [place] Bodies Not Reportable 03/20/18 07:57 [place] Rings Not Reportable 03/20/18 07:57 [place] Cells Not Reportable 03/20/18 07:57 Bite Cells Not Reportable 03/20/18 07:57 Crenated Cell Not Reportable 03/20/18 07:57 Elliptocytes Rare 03/20/18 07:57 Acanthocytes (Spur) Not Reportable 03/20/18 07:57 Rouleaux Not Reportable 03/20/18 07:57 Hemoglobin C Crystals Not Reportable 03/20/18 07:57 Schistocytes Not Reportable 03/20/18 07:57 Malaria parasites Not Reportable 03/20/18 07:57 Anish Bodies Not Reportable 03/20/18 07:57 Hem Pathologist Commnt No 03/20/18 07:57 PT 16.4 Sec. (12.2-14.9) H 03/17/18 13:18 INR 1.25 (0.87-1.13) H 03/17/18 13:18 APTT 34.7 Sec. (24.2-36.6) 03/17/18 13:18 D-Dimer 7951.75 ng/mlDDU (0-234) H 03/11/18 00:03 Lupus Anticoagulant see below H 03/17/18 05:11 LA PTT Baseline 51 sec (<=40) H 03/17/18 05:11 Heparin Anti-Xa Level 0.59 U.I./ml (0.3-0.7) 03/20/18 16:40 Sodium 138 mmol/L (137-145) 03/21/18 05:05 Potassium 4.2 mmol/L (3.6-5.0) 03/21/18 05:05 Chloride 98.6 mmol/L (98-107) 03/21/18 05:05 Carbon Dioxide 24 mmol/L (22-30) 03/21/18 05:05 Anion Gap 20 mmol/L 03/21/18 05:05 BUN 30 mg/dL (7-17) H 03/21/18 05:05 Creatinine 10.2 mg/dL (0.7-1.2) H 03/21/18 05:05 Estimated GFR 4 ml/min 03/21/18 05:05 BUN/Creatinine Ratio 3 % 03/21/18 05:05 Glucose 66 mg/dL (65-100) 03/21/18 05:05 Lactic Acid 1.70 mmol/L (0.7-2.0) 03/11/18 07:11 Calcium 8.2 mg/dL (8.4-10.2) L 03/21/18 05:05 Phosphorus 3.90 mg/dL (2.5-4.5) 03/15/18 04:57 Total Bilirubin 0.40 mg/dL (0.1-1.2) 03/18/18 06:00 AST 11 units/L (5-40) 03/18/18 06:00 ALT 16 units/L (7-56) 03/18/18 06:00 Alkaline Phosphatase 76 units/L (35-129) 03/18/18 06:00 Total Creatine Kinase 339 units/L (30-135) H 03/13/18 04:45 Total Protein 5.7 g/dL (6.3-8.2) L 03/18/18 06:00 Albumin 3.0 g/dL (3.9-5) L 03/18/18 06:00 Albumin/Globulin Ratio 1.1 % 03/18/18 06:00 Urine Color Yellow (Yellow) 03/14/18 17:43 Urine Turbidity Cloudy (Clear) 03/14/18 17:43 Urine pH 6.0 (5.0-7.0) 03/14/18 17:43 Ur Specific [place] 1.012 (1.003-1.030) 03/14/18 17:43 Urine Protein 100 mg/dl mg/dL (Negative) 03/14/18 17:43 Urine Glucose (UA) 50 mg/dL (Negative) 03/14/18 17:43 Urine Ketones Neg mg/dL (Negative) 03/14/18 17:43 Urine Blood Lg (Negative) 03/14/18 17:43 Urine Nitrite Neg (Negative) 03/14/18 17:43 Urine Bilirubin Neg (Negative) 03/14/18 17:43 Urine Urobilinogen < 2.0 mg/dL (<2.0) 03/14/18 17:43 Ur Leukocyte Esterase Mod (Negative) 03/14/18 17:43 Urine WBC (Auto) 66.0 /HPF (0.0-6.0) H 03/14/18 17:43 Urine RBC (Auto) 9.0 /HPF (0.0-6.0) 03/14/18 17:43 U Epithel Cells (Auto) 45.0 /HPF (0-13.0) H 03/14/18 17:43 Urine Bacteria (Auto) 1+ /HPF (Negative) 03/11/18 10:07 Urine WBC Clumps 2+ /HPF 03/14/18 17:43 Urine Mucus 3+ /HPF 03/11/18 10:07 Urine Yeast (Budding) 1+ /HPF 03/14/18 17:43 Urine Creatinine 67.5 mg/dL (0.1-20.0) H 03/14/18 17:43 Urine Sodium 79 mmol/L 03/14/18 17:43 Urine HCG, Qual Negative (Negative) 03/11/18 10:07 RAY Screen Negative (Negative) 03/17/18 05:11 Proteinase 3 (PR3) Ab <1.0 AI (<1.0) 03/17/18 05:11 Myeloperoxidase Ab <1.0 AI (<1.0) 03/17/18 05:11 Complement C3 143 mg/dL (83-193) 03/17/18 05:11 Complement C4 23 mg/dL (15-57) 03/17/18 05:11 Hepatitis A IgM Ab Nonreactive (NonReactive) 03/18/18 13:11 Hep Bs Antigen Non-reactive (Negative) 03/18/18 13:11 Hep B Core IgM Ab Non-reactive (NonReactive) 03/18/18 13:11 Hepatitis C Antibody Non-reactive (NonReactive) 03/18/18 13:11
[2018-03-21] MEDS: SODIUM CHLORIDE FLUSH SYRINGE 10 ML IV SCH ×2 (15:49→22:00)
[2018-03-21] MEDS ORDERED: LASIX IV ONE (16:35)
[2018-03-22 06:27] LABS: Calcium 8.1 mg/dL (8.4-10.2)
--- NOTE | 2018-03-22 10:05 | Progress Note ---
Assessment and Plan 1. Acute kidney injury: Likely ATN in the setting of NSAIDs and IV contrast. Complements negative, RAY and ANCA are negative. Lupus anticoagulant is pending. Patient was started on hemodialysis due to declining renal function and suspected uremic symptoms. She was last dialyzed 2 days ago. Hold HD today. 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 Renal prognosis is guarded. 2. Extensive DVT: Followed by Heme-Onc. 3. Volume overload: Started on PO Lasix. 4. Anemia. Subjective Date of service: 03/22/18 Principal diagnosis: left leg DVT Interval history: Patient was seen and examined at the bedside. Patient c/o bilateral leg swelling and blisters over the arms. Objective - Vital Signs Vital signs: Vital Signs - 12hr 03/21/18 03/22/18 22:50 07:15 Temperature 98.0 F 99.1 F Pulse Rate 98 H 88 Respiratory 18 18 Rate Blood Pressure 122/62 132/75 O2 Sat by Pulse 100 99 Oximetry - General Appearance General appearance: well-developed, well-nourished, appears stated age, obese, other (not in distress, right IJ temp catheter) EENT: ATNC, PERRL, mucous membranes moist, hearing intact, vision intact Neck: supple Respiratory: Present: Clear to Ascultation Cardiology: regular, S1S2, no murmurs Gastrointestinal: normoactive bowel sounds, no tenderness, obese Integumentary: other (bilateral UE blisters noted, R > L) Neurologic: no focal deficit, no asterixis, alert and oriented x3 Musculoskeletal: other (1+ edema of both LEs noted) Psychiatric: cooperative - Lab 03/21/18 05:05 03/22/18 05:17 Most recent lab results Calcium 8.1 mg/dL (8.4-10.2) L 03/22/18 05:17 Phosphorus 3.60 mg/dL (2.5-4.5) 03/22/18 05:17 Urine Creatinine 67.5 mg/dL (0.1-20.0) H 03/14/18 17:43 Urine Sodium 79 mmol/L 03/14/18 17:43
--- NOTE | 2018-03-22 11:31 | Progress Note ---
Assessment and Plan Assessment and plan: Acute DVT left lower extremity, extensive. s/p thrombectomy, angioplasty and stent placement 03/11 Continue heparin drip Acute kidney injury, due to ATN in the setting of NSAIDs and contrast nephropathy Patient was started on hemodialysis yesterday due to declining renal function and suspected uremic symptoms. RAY, ANCA, Complements and Lupus anticoagulant ordered. Complements negative. Rash and nonspecific skin eruption. Patient has rash unsure if secondary to anticoagulant versus antihypertensive vs abx. Changed antihypertensive from amlodipine to atenolol. ? Levaquin allergy. Levaquin has been discontinued. Metabolic acidosis due to KETTY Obesity. Discussed diet and exercise to lose weight Smoking cessation counseling done. She states she has been using patch to quit smoking Hypertensive urgency. Continue Amlodipine 5mg po daily Hydralazine iv prn Full code status History Interval history: No new issues overnight Hospitalist Physical - Constitutional Vitals: Temp Pulse Resp BP Pulse Ox 99.1 F 88 18 132/75 99 03/22/18 07:15 03/22/18 07:15 03/22/18 07:15 03/22/18 07:15 03/22/18 07:15 General appearance: Present: no acute distress - EENT Eyes: Present: PERRL, EOM intact ENT: hearing intact, clear oral mucosa, dentition normal - Neck Neck: Present: supple, normal ROM - Respiratory Respiratory effort: normal Respiratory: bilateral: CTA - Cardiovascular Rhythm: regular Heart Sounds: Present: S1 & S2. Absent: gallop, rub - Extremities Extremities: no ischemia, No edema, Full ROM - Abdominal General gastrointestinal: soft, non-tender, non-distended, normal bowel sounds - Integumentary Integumentary: Present: clear, warm, dry - Neurologic Neurologic: CNII-XII intact, moves all extremities Results - Labs CBC & Chem 7: 03/21/18 05:05 03/22/18 05:17 Labs: Laboratory Last Values WBC 23.2 K/mm3 (4.5-11.0) H 03/20/18 07:57 RBC 3.75 M/mm3 (3.65-5.03) 03/20/18 07:57 Hgb 8.4 gm/dl (10.1-14.3) L 03/21/18 05:05 Hct 26.8 % (30.3-42.9) L 03/21/18 05:05 MCV 83 fl (79-97) 03/20/18 07:57 MCH 27 pg (28-32) L 03/20/18 07:57 MCHC 33 % (30-34) 03/20/18 07:57 RDW 15.7 % (13.2-15.2) H 03/20/18 07:57 Plt Count 185 K/mm3 (140-440) 03/21/18 05:05 Lymph % (Auto) 5.2 % (13.4-35.0) L 03/18/18 06:00 [place] % (Auto) 3.4 % (0.0-7.3) 03/18/18 06:00 Eos % (Auto) 4.0 % (0.0-4.3) 03/18/18 06:00 Baso % (Auto) 0.1 % (0.0-1.8) 03/18/18 06:00 Lymph # 0.7 K/mm3 (1.2-5.4) L 03/18/18 06:00 [place] # 0.4 K/mm3 (0.0-0.8) 03/18/18 06:00 Eos # 0.5 K/mm3 (0.0-0.4) H 03/18/18 06:00 Baso # 0.0 K/mm3 (0.0-0.1) 03/18/18 06:00 Add Manual Diff Complete 03/20/18 07:57 Total Counted 100 03/20/18 07:57 Seg Neutrophils % 87.3 % (40.0-70.0) H 03/18/18 06:00 Seg Neuts % (Manual) 97.0 % (40.0-70.0) H 03/20/18 07:57 Band Neutrophils % 0 % 03/20/18 07:57 Lymphocytes % (Manual) 1.0 % (13.4-35.0) L 03/20/18 07:57 Reactive Lymphs % (Man) 0 % 03/20/18 07:57 Monocytes % (Manual) 2.0 % (0.0-7.3) 03/20/18 07:57 Eosinophils % (Manual) 0 % (0.0-4.3) 03/20/18 07:57 Basophils % (Manual) 0 % (0.0-1.8) 03/20/18 07:57 Metamyelocytes % 0 % 03/20/18 07:57 Myelocytes % 0 % 03/20/18 07:57 Promyelocytes % 0 % 03/20/18 07:57 Blast Cells % 0 % 03/20/18 07:57 Nucleated RBC % Not Reportable 03/20/18 07:57 Seg Neutrophils # 11.6 K/mm3 (1.8-7.7) H 03/18/18 06:00 Seg Neutrophils # Man 22.5 K/mm3 (1.8-7.7) H 03/20/18 07:57 Band Neutrophils # 0.0 K/mm3 03/20/18 07:57 Lymphocytes # (Manual) 0.2 K/mm3 (1.2-5.4) L 03/20/18 07:57 Abs React Lymphs (Man) 0.0 K/mm3 03/20/18 07:57 Monocytes # (Manual) 0.5 K/mm3 (0.0-0.8) 03/20/18 07:57 Eosinophils # (Manual) 0.0 K/mm3 (0.0-0.4) 03/20/18 07:57 Basophils # (Manual) 0.0 K/mm3 (0.0-0.1) 03/20/18 07:57 Metamyelocytes # 0.0 K/mm3 03/20/18 07:57 Myelocytes # 0.0 K/mm3 03/20/18 07:57 Promyelocytes # 0.0 K/mm3 03/20/18 07:57 Blast Cells # 0.0 K/mm3 03/20/18 07:57 WBC Morphology Not Reportable 03/20/18 07:57 Hypersegmented Neuts Not Reportable 03/20/18 07:57 Hyposegmented Neuts Not Reportable 03/20/18 07:57 Hypogranular Neuts Not Reportable 03/20/18 07:57 Smudge Cells Not Reportable 03/20/18 07:57 Toxic Granulation Not Reportable 03/20/18 07:57 Toxic Vacuolation Not Reportable 03/20/18 07:57 Dohle Bodies Not Reportable 03/20/18 07:57 Pelger-Huet Anomaly Not Reportable 03/20/18 07:57 Kristy Rods Not Reportable 03/20/18 07:57 Platelet Estimate Appears normal 03/20/18 07:57 Clumped Platelets Not Reportable 03/20/18 07:57 Plt Clumps, EDTA Not Reportable 03/20/18 07:57 Large Platelets Not Reportable 03/20/18 07:57 Giant Platelets Not Reportable 03/20/18 07:57 Platelet Satelliting Not Reportable 03/20/18 07:57 Plt Morphology Comment Not Reportable 03/20/18 07:57 RBC Morphology Not Reportable 03/20/18 07:57 Dimorphic RBCs Not Reportable 03/20/18 07:57 Polychromasia Not Reportable 03/20/18 07:57 Hypochromasia Not Reportable 03/20/18 07:57 Poikilocytosis Not Reportable 03/20/18 07:57 Anisocytosis 1+ 03/20/18 07:57 Microcytosis Not Reportable 03/20/18 07:57 Macrocytosis Not Reportable 03/20/18 07:57 Spherocytes Not Reportable 03/20/18 07:57 Pappenheimer Bodies Not Reportable 03/20/18 07:57 Sickle Cells Not Reportable 03/20/18 07:57 Target Cells Not Reportable 03/20/18 07:57 Tear Drop Cells Not Reportable 03/20/18 07:57 Ovalocytes Not Reportable 03/20/18 07:57 Helmet Cells Not Reportable 03/20/18 07:57 [place] Bodies Not Reportable 03/20/18 07:57 [place] Rings Not Reportable 03/20/18 07:57 [place] Cells Not Reportable 03/20/18 07:57 Bite Cells Not Reportable 03/20/18 07:57 Crenated Cell Not Reportable 03/20/18 07:57 Elliptocytes Rare 03/20/18 07:57 Acanthocytes (Spur) Not Reportable 03/20/18 07:57 Rouleaux Not Reportable 03/20/18 07:57 Hemoglobin C Crystals Not Reportable 03/20/18 07:57 Schistocytes Not Reportable 03/20/18 07:57 Malaria parasites Not Reportable 03/20/18 07:57 Anish Bodies Not Reportable 03/20/18 07:57 Hem Pathologist Commnt No 09/20/18 07:57 PT 16.4 Sec. (12.2-14.9) H 03/17/18 13:18 INR 1.25 (0.87-1.13) H 03/17/18 13:18 APTT 34.7 Sec. (24.2-36.6) 03/17/18 13:18 D-Dimer 7951.75 ng/mlDDU (0-234) H 03/11/18 00:03 Lupus Anticoagulant see below H 03/17/18 05:11 LA PTT Baseline 51 sec (<=40) H 03/17/18 05:11 Heparin Anti-Xa Level 0.40 U.I./ml (0.3-0.7) 03/21/18 18:18 Sodium 138 mmol/L (137-145) 03/22/18 05:17 Potassium 4.0 mmol/L (3.6-5.0) 03/22/18 05:17 Chloride 97.6 mmol/L (98-107) L 03/22/18 05:17 Carbon Dioxide 26 mmol/L (22-30) 03/22/18 05:17 Anion Gap 18 mmol/L 03/22/18 05:17 BUN 34 mg/dL (7-17) H 03/22/18 05:17 Creatinine 11.2 mg/dL (0.7-1.2) H 03/22/18 05:17 Estimated GFR 4 ml/min 03/22/18 05:17 BUN/Creatinine Ratio 3 % 03/22/18 05:17 Glucose 87 mg/dL (65-100) 03/22/18 05:17 Lactic Acid 1.70 mmol/L (0.7-2.0) 03/11/18 07:11 Calcium 8.1 mg/dL (8.4-10.2) L 03/22/18 05:17 Phosphorus 3.60 mg/dL (2.5-4.5) 03/22/18 05:17 Total Bilirubin 0.40 mg/dL (0.1-1.2) 03/18/18 06:00 AST 11 units/L (5-40) 03/18/18 06:00 ALT 16 units/L (7-56) 03/18/18 06:00 Alkaline Phosphatase 76 units/L (35-129) 03/18/18 06:00 Total Creatine Kinase 339 units/L (30-135) H 03/13/18 04:45 Total Protein 5.7 g/dL (6.3-8.2) L 03/18/18 06:00 Albumin 3.0 g/dL (3.9-5) L 03/18/18 06:00 Albumin/Globulin Ratio 1.1 % 03/18/18 06:00 Urine Color Yellow (Yellow) 03/14/18 17:43 Urine Turbidity Cloudy (Clear) 03/14/18 17:43 Urine pH 6.0 (5.0-7.0) 03/14/18 17:43 Ur Specific [place] 1.012 (1.003-1.030) 03/14/18 17:43 Urine Protein 100 mg/dl mg/dL (Negative) 03/14/18 17:43 Urine Glucose (UA) 50 mg/dL (Negative) 03/14/18 17:43 Urine Ketones Neg mg/dL (Negative) 03/14/18 17:43 Urine Blood Lg (Negative) 03/14/18 17:43 Urine Nitrite Neg (Negative) 03/14/18 17:43 Urine Bilirubin Neg (Negative) 03/14/18 17:43 Urine Urobilinogen < 2.0 mg/dL (<2.0) 03/14/18 17:43 Ur Leukocyte Esterase Mod (Negative) 03/14/18 17:43 Urine WBC (Auto) 66.0 /HPF (0.0-6.0) H 03/14/18 17:43 Urine RBC (Auto) 9.0 /HPF (0.0-6.0) 03/14/18 17:43 U Epithel Cells (Auto) 45.0 /HPF (0-13.0) H 03/14/18 17:43 Urine Bacteria (Auto) 1+ /HPF (Negative) 03/11/18 10:07 Urine WBC Clumps 2+ /HPF 03/14/18 17:43 Urine Mucus 3+ /HPF 03/11/18 10:07 Urine Yeast (Budding) 1+ /HPF 03/14/18 17:43 Urine Creatinine 67.5 mg/dL (0.1-20.0) H 03/14/18 17:43 Urine Sodium 79 mmol/L 03/14/18 17:43 Urine HCG, Qual Negative (Negative) 03/11/18 10:07 RAY Screen Negative (Negative) 03/17/18 05:11 Proteinase 3 (PR3) Ab <1.0 AI (<1.0) 03/17/18 05:11 Myeloperoxidase Ab <1.0 AI (<1.0) 03/17/18 05:11 Complement C3 143 mg/dL (83-193) 03/17/18 05:11 Complement C4 23 mg/dL (15-57) 03/17/18 05:11 Hepatitis A IgM Ab Nonreactive (NonReactive) 03/18/18 13:11 Hep Bs Antigen Non-reactive (Negative) 03/18/18 13:11 Hep B Core IgM Ab Non-reactive (NonReactive) 03/18/18 13:11 Hepatitis C Antibody Non-reactive (NonReactive) 03/18/18 13:11
[2018-03-22] MEDS: LASIX PO SCH (12:03)
[2018-03-22] MEDS: SODIUM CHLORIDE FLUSH SYRINGE 10 ML IV SCH ×2 (12:04→22:45)
[2018-03-22] MEDS: HEPARIN/ 0.45% NACL-25,000 UNIT/500 ML 25,000 UNIT/500 ML BAG IV SCH (15:21)
--- NOTE | 2018-03-22 22:37 | Hem/Onc Progress Note ---
Assessment and Plan # DVT left leg s/p thrombectomy - ? 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 - OP follow up for same # mild thrombocytopenia 03/12 - plt 136 and later 142 - will follow - this may be post procedure # nurse emergency abn - post procedure - nephrology following - HD done # rash - nape of neck and chest - pt thinks it is eliquis - option of xarelto - rash better 03/18 - pt on heparin in the interim 03/20 - upper extremity edema heparin - anti X a being followed Dr Coyle has agreed to cover me next week till saturday - Patient Problems (1) Deep vein thrombosis Onset Date: ~03/11/18 Current Visit: Yes Status: Acute Qualifiers: DVT location: lower extremity Affected thrombotic vein of extremity: unspecified lower extremity proximal vein Chronicity: acute Laterality: left Qualified Code(s): I82.4Y2 - Acute embolism and thrombosis of unspecified deep veins of left proximal lower extremity Subjective Date of service: 03/22/18 Principal diagnosis: left leg dvt Interval history: high nurse emergency - nephrology following leg swelling and pain better h/o rash neck and chest area - pt thinks it may be eliquis. - stopped same - rash better - on IV heparin Upper extremity edema- better s/p HD on 03/20 urinating - but pt says not a lot. Objective - Exam Narrative Exam: pt has vesicular/ bullous lesions in arm - Constitutional Vitals: Last Vital Signs Temp 99.8 F H 03/22/18 18:23 Pulse 92 H 03/22/18 18:23 Resp 18 03/22/18 18:23 BP 149/81 03/22/18 18:23 Pulse Ox 100 03/22/18 18:23 Pain Intensity (0-10): 1/10 General appearance: mild distress Performance status: 3-limited selfcare - EENT Eyes: PERRL ENT: clear oral mucosa Lymph node exam: negative cervical, negative supraclavicular - Neck Neck: supple - Respiratory Respiratory effort: Positive: normal Respiratory: bilateral: CTA - Cardiovascular Heart Sounds: Present: S1 & S2 Extremity abnormal: edema - Gastrointestinal General gastrointestinal: Present: soft, non-tender Rectal Exam: deferred - Genitourinary Female genitourinary: Present: deferred - Musculoskeletal Musculoskeletal: strength equal bilaterally - Neurologic Neurologic: moves all extremities - Psychiatric Psychiatric: appropriate mood/affect, cooperative - Labs Lab Results: Laboratory Results - last 24 hr 03/22/18 05:17 Sodium 138 Potassium 4.0 Chloride 97.6 L Carbon Dioxide 26 Anion Gap 18 BUN 34 H Creatinine 11.2 H Estimated GFR 4 BUN/Creatinine Ratio 3 Glucose 87 Calcium 8.1 L Phosphorus 3.60
[2018-03-22] MEDS ORDERED: HEPARIN 10,000 UNITS/10 ML IV ONE (23:41)
--- NOTE | 2018-03-23 07:55 | Progress Note ---
Assessment and Plan 1. Acute kidney injury: Likely ATN in the setting of NSAIDs and IV contrast. Complements negative, RAY and ANCA are negative. Lupus anticoagulant is positive. The test needs to be repeated in 12 weeks. Direct oral anticoagulant may cause false positive. Patient was started on hemodialysis due to declining renal function and suspected uremic symptoms. She was last dialyzed 3 days ago. Creatinine appears to be leveled off. Monitor renal function and [employer]IST needs. Renal prognosis is guarded. 2. Extensive DVT: Followed by Heme-Onc. 3. Volume overload: Continue PO Lasix. 4. Anemia. Subjective Date of service: 03/23/18 Principal diagnosis: left leg dvt Interval history: Patient was seen and examined at the bedside. Patient c/o bilateral leg swelling and blisters over the arms. Objective - Vital Signs Vital signs: Vital Signs - 12hr 03/23/18 03/23/18 00:09 05:57 Temperature 98.5 F 98.6 F Pulse Rate 96 H 92 H Respiratory 18 18 Rate Blood Pressure 134/61 130/67 O2 Sat by Pulse 100 100 Oximetry - General Appearance General appearance: well-developed, well-nourished, appears stated age, obese, other (right IJ temp dialysis catheter) EENT: ATNC, PERRL, mucous membranes moist, hearing intact, vision intact Neck: supple Respiratory: Present: Clear to Ascultation Cardiology: regular, S1S2, no murmurs Gastrointestinal: normoactive bowel sounds, no tenderness, no distended, obese Integumentary: other (multiple blisters over both UEs) Neurologic: no focal deficit, no asterixis, alert and oriented x3 Musculoskeletal: other (bilateral LE 2+ edema noted) Psychiatric: cooperative - Lab 03/23/18 07:42 03/23/18 07:42 Most recent lab results Calcium 8.1 mg/dL (8.4-10.2) L 03/22/18 05:17 Phosphorus 3.60 mg/dL (2.5-4.5) 03/22/18 05:17 Urine Creatinine 67.5 mg/dL (0.1-20.0) H 03/14/18 17:43 Urine Sodium 79 mmol/L 03/14/18 17:43
[2018-03-23 08:05] LABS: Hematocrit 28.2 % (30.3-42.9); Hemoglobin 9.2 gm/dl (10.1-14.3); Mean Corpuscular HGB Conc 33 % (30-34); Mean Corpuscular Hemoglobin 27 pg (28-32); Mean Corpuscular Volume 84 fl (79-97); Platelet Count 233 K/mm3 (140-440); Red Blood Count 3.35 M/mm3 (3.65-5.03)
[2018-03-23 08:18] LABS: Calcium 8.3 mg/dL (8.4-10.2)
[2018-03-23 09:42] LABS: Band Neutrophils # (Manual) 0.1 K/mm3; Basophils % (Manual) 0 % (0.0-1.8); Promyelocytes # (Manual) 0.3 K/mm3; Total Cells Counted 100
[2018-03-23 09:43] LABS: Anisocytosis 1+; Ovalocytes 1+; Platelet Estimate Consistent w Auto
[2018-03-23] MEDS: LASIX PO SCH (09:44)
--- NOTE | 2018-03-23 10:33 | Progress Note ---
Assessment and Plan Assessment and plan: Acute DVT left lower extremity, extensive. s/p thrombectomy, angioplasty and stent placement 03/11 Continue heparin drip Acute kidney injury, due to ATN in the setting of NSAIDs and contrast nephropathy Patient was started on hemodialysis yesterday due to declining renal function and suspected uremic symptoms. RAY, ANCA, Complements and Lupus anticoagulant ordered. Complements negative. Rash and nonspecific skin eruption. Patient has rash unsure if secondary to anticoagulant versus antihypertensive vs abx. Changed antihypertensive from amlodipine to atenolol. ? Levaquin allergy. Levaquin has been discontinued. Metabolic acidosis due to KETTY Obesity. Discussed diet and exercise to lose weight Smoking cessation counseling done. She states she has been using patch to quit smoking Hypertensive urgency. Continue Amlodipine 5mg po daily Hydralazine iv prn Full code status History Interval history: No new issues overnight Hospitalist Physical - Constitutional Vitals: Temp Pulse Resp BP Pulse Ox 98.6 F 92 H 18 130/67 100 03/23/18 05:57 03/23/18 05:57 03/23/18 05:57 03/23/18 05:57 03/23/18 05:57 General appearance: Present: no acute distress - EENT Eyes: Present: PERRL, EOM intact ENT: hearing intact, clear oral mucosa, dentition normal - Neck Neck: Present: supple, normal ROM - Respiratory Respiratory effort: normal Respiratory: bilateral: CTA - Cardiovascular Rhythm: regular Heart Sounds: Present: S1 & S2. Absent: gallop, rub - Extremities Extremities: no ischemia, No edema, Full ROM - Abdominal General gastrointestinal: soft, non-tender, non-distended, normal bowel sounds - Integumentary Integumentary: Present: clear, warm, dry - Neurologic Neurologic: CNII-XII intact, moves all extremities Results - Labs CBC & Chem 7: 03/23/18 07:42 03/23/18 07:42 Labs: Laboratory Last Values WBC 14.4 K/mm3 (4.5-11.0) H 03/23/18 07:42 RBC 3.35 M/mm3 (3.65-5.03) L 03/23/18 07:42 Hgb 9.2 gm/dl (10.1-14.3) L 03/23/18 07:42 Hct 28.2 % (30.3-42.9) L 03/23/18 07:42 MCV 84 fl (79-97) 03/23/18 07:42 MCH 27 pg (28-32) L 03/23/18 07:42 MCHC 33 % (30-34) 03/23/18 07:42 RDW 16.0 % (13.2-15.2) H 03/23/18 07:42 Plt Count 233 K/mm3 (140-440) 03/23/18 07:42 Lymph % (Auto) 5.2 % (13.4-35.0) L 03/18/18 06:00 [place] % (Auto) 3.4 % (0.0-7.3) 03/18/18 06:00 Eos % (Auto) 4.0 % (0.0-4.3) 03/18/18 06:00 Baso % (Auto) 0.1 % (0.0-1.8) 03/18/18 06:00 Lymph # 0.7 K/mm3 (1.2-5.4) L 03/18/18 06:00 [place] # 0.4 K/mm3 (0.0-0.8) 03/18/18 06:00 Eos # 0.5 K/mm3 (0.0-0.4) H 03/18/18 06:00 Baso # 0.0 K/mm3 (0.0-0.1) 03/18/18 06:00 Add Manual Diff Complete 03/23/18 07:42 Total Counted 100 03/23/18 07:42 Seg Neutrophils % 87.3 % (40.0-70.0) H 03/18/18 06:00 Seg Neuts % (Manual) 62.0 % (40.0-70.0) 03/23/18 07:42 Band Neutrophils % 1.0 % 03/23/18 07:42 Lymphocytes % (Manual) 17.0 % (13.4-35.0) 03/23/18 07:42 Reactive Lymphs % (Man) 1.0 % 03/23/18 07:42 Monocytes % (Manual) 7.0 % (0.0-7.3) 03/23/18 07:42 Eosinophils % (Manual) 10.0 % (0.0-4.3) H 03/23/18 07:42 Basophils % (Manual) 0 % (0.0-1.8) 03/23/18 07:42 Metamyelocytes % 0 % 03/23/18 07:42 Myelocytes % 0 % 03/23/18 07:42 Promyelocytes % 2.0 % 03/23/18 07:42 Blast Cells % 0 % 03/23/18 07:42 Nucleated RBC % Not Reportable 03/23/18 07:42 Seg Neutrophils # 11.6 K/mm3 (1.8-7.7) H 03/18/18 06:00 Seg Neutrophils # Man 8.9 K/mm3 (1.8-7.7) H 03/23/18 07:42 Band Neutrophils # 0.1 K/mm3 03/23/18 07:42 Lymphocytes # (Manual) 2.4 K/mm3 (1.2-5.4) 03/23/18 07:42 Abs React Lymphs (Man) 0.1 K/mm3 03/23/18 07:42 Monocytes # (Manual) 1.0 K/mm3 (0.0-0.8) H 03/23/18 07:42 Eosinophils # (Manual) 1.4 K/mm3 (0.0-0.4) H 03/23/18 07:42 Basophils # (Manual) 0.0 K/mm3 (0.0-0.1) 03/23/18 07:42 Metamyelocytes # 0.0 K/mm3 03/23/18 07:42 Myelocytes # 0.0 K/mm3 03/23/18 07:42 Promyelocytes # 0.3 K/mm3 03/23/18 07:42 Blast Cells # 0.0 K/mm3 03/23/18 07:42 WBC Morphology Not Reportable 03/23/18 07:42 Hypersegmented Neuts Not Reportable 03/23/18 07:42 Hyposegmented Neuts Not Reportable 03/23/18 07:42 Hypogranular Neuts Not Reportable 03/23/18 07:42 Smudge Cells Not Reportable 03/23/18 07:42 Toxic Granulation Not Reportable 03/23/18 07:42 Toxic Vacuolation Not Reportable 03/23/18 07:42 Dohle Bodies Not Reportable 03/23/18 07:42 Pelger-Huet Anomaly Not Reportable 03/23/18 07:42 Kristy Rods Not Reportable 03/23/18 07:42 Platelet Estimate Consistent w auto 03/23/18 07:42 Clumped Platelets Not Reportable 03/23/18 07:42 Plt Clumps, EDTA Not Reportable 03/23/18 07:42 Large Platelets Not Reportable 03/23/18 07:42 Giant Platelets Not Reportable 03/23/18 07:42 Platelet Satelliting Not Reportable 03/23/18 07:42 Plt Morphology Comment Not Reportable 03/23/18 07:42 RBC Morphology Not Reportable 03/23/18 07:42 Dimorphic RBCs Not Reportable 03/23/18 07:42 Polychromasia Not Reportable 03/23/18 07:42 Hypochromasia Not Reportable 03/23/18 07:42 Poikilocytosis Not Reportable 03/23/18 07:42 Anisocytosis 1+ 03/23/18 07:42 Microcytosis Not Reportable 03/23/18 07:42 Macrocytosis Not Reportable 03/23/18 07:42 Spherocytes Not Reportable 03/23/18 07:42 Pappenheimer Bodies Not Reportable 03/23/18 07:42 Sickle Cells Not Reportable 03/23/18 07:42 Target Cells Not Reportable 03/23/18 07:42 Tear Drop Cells Not Reportable 03/23/18 07:42 Ovalocytes 1+ 03/23/18 07:42 Helmet Cells Not Reportable 03/23/18 07:42 [place] Bodies Not Reportable 03/23/18 07:42 [place] Rings Not Reportable 03/23/18 07:42 [place] Cells Not Reportable 03/23/18 07:42 Bite Cells Not Reportable 03/23/18 07:42 Crenated Cell Not Reportable 03/23/18 07:42 Elliptocytes Not Reportable 03/23/18 07:42 Acanthocytes (Spur) Not Reportable 03/23/18 07:42 Rouleaux Not Reportable 03/23/18 07:42 Hemoglobin C Crystals Not Reportable 03/23/18 07:42 Schistocytes Not Reportable 03/23/18 07:42 Malaria parasites Not Reportable 03/23/18 07:42 Anish Bodies Not Reportable 03/23/18 07:42 Hem Pathologist Commnt No 03/23/18 07:42 PT 16.4 Sec. (12.2-14.9) H 03/17/18 13:18 INR 1.25 (0.87-1.13) H 03/17/18 13:18 APTT 34.7 Sec. (24.2-36.6) 03/17/18 13:18 D-Dimer 7951.75 ng/mlDDU (0-234) H 03/11/18 00:03 Lupus Anticoagulant see below H 03/17/18 05:11 LA PTT Baseline 51 sec (<=40) H 03/17/18 05:11 Heparin Anti-Xa Level 0.17 U.I./ml (0.3-0.7) L 03/23/18 07:42 Sodium 140 mmol/L (137-145) 03/23/18 07:42 Potassium 4.3 mmol/L (3.6-5.0) 03/23/18 07:42 Chloride 101.7 mmol/L (98-107) 03/23/18 07:42 Carbon Dioxide 25 mmol/L (22-30) 03/23/18 07:42 Anion Gap 18 mmol/L 03/23/18 07:42 BUN 40 mg/dL (7-17) H 03/23/18 07:42 Creatinine 11.7 mg/dL (0.7-1.2) H 03/23/18 07:42 Estimated GFR 4 ml/min 03/23/18 07:42 BUN/Creatinine Ratio 3 % 03/23/18 07:42 Glucose 87 mg/dL (65-100) 03/23/18 07:42 Lactic Acid 1.70 mmol/L (0.7-2.0) 03/11/18 07:11 Calcium 8.3 mg/dL (8.4-10.2) L 03/23/18 07:42 Phosphorus 3.60 mg/dL (2.5-4.5) 03/22/18 05:17 Total Bilirubin 0.40 mg/dL (0.1-1.2) 03/18/18 06:00 AST 11 units/L (5-40) 03/18/18 06:00 ALT 16 units/L (7-56) 03/18/18 06:00 Alkaline Phosphatase 76 units/L (35-129) 03/18/18 06:00 Total Creatine Kinase 339 units/L (30-135) H 03/13/18 04:45 Total Protein 5.7 g/dL (6.3-8.2) L 03/18/18 06:00 Albumin 3.0 g/dL (3.9-5) L 03/18/18 06:00 Albumin/Globulin Ratio 1.1 % 03/18/18 06:00 Urine Color Yellow (Yellow) 03/14/18 17:43 Urine Turbidity Cloudy (Clear) 03/14/18 17:43 Urine pH 6.0 (5.0-7.0) 03/14/18 17:43 Ur Specific [place] 1.012 (1.003-1.030) 03/14/18 17:43 Urine Protein 100 mg/dl mg/dL (Negative) 03/14/18 17:43 Urine Glucose (UA) 50 mg/dL (Negative) 03/14/18 17:43 Urine Ketones Neg mg/dL (Negative) 03/14/18 17:43 Urine Blood Lg (Negative) 03/14/18 17:43 Urine Nitrite Neg (Negative) 03/14/18 17:43 Urine Bilirubin Neg (Negative) 03/14/18 17:43 Urine Urobilinogen < 2.0 mg/dL (<2.0) 03/14/18 17:43 Ur Leukocyte Esterase Mod (Negative) 03/14/18 17:43 Urine WBC (Auto) 66.0 /HPF (0.0-6.0) H 03/14/18 17:43 Urine RBC (Auto) 9.0 /HPF (0.0-6.0) 03/14/18 17:43 U Epithel Cells (Auto) 45.0 /HPF (0-13.0) H 03/14/18 17:43 Urine Bacteria (Auto) 1+ /HPF (Negative) 03/11/18 10:07 Urine WBC Clumps 2+ /HPF 03/14/18 17:43 Urine Mucus 3+ /HPF 03/11/18 10:07 Urine Yeast (Budding) 1+ /HPF 03/14/18 17:43 Urine Creatinine 67.5 mg/dL (0.1-20.0) H 03/14/18 17:43 Urine Sodium 79 mmol/L 03/14/18 17:43 Urine HCG, Qual Negative (Negative) 03/11/18 10:07 RAY Screen Negative (Negative) 03/17/18 05:11 Proteinase 3 (PR3) Ab <1.0 AI (<1.0) 03/17/18 05:11 Myeloperoxidase Ab <1.0 AI (<1.0) 03/17/18 05:11 Complement C3 143 mg/dL (83-193) 03/17/18 05:11 Complement C4 23 mg/dL (15-57) 03/17/18 05:11 Hepatitis A IgM Ab Nonreactive (NonReactive) 03/18/18 13:11 Hep Bs Antigen Non-reactive (Negative) 03/18/18 13:11 Hep B Core IgM Ab Non-reactive (NonReactive) 03/18/18 13:11 Hepatitis C Antibody Non-reactive (NonReactive) 03/18/18 13:11
--- NOTE | 2018-03-23 10:41 | Progress Note ---
Assessment and Plan - Patient Problems (1) ARF (acute renal failure) Current Visit: Yes Status: Acute Plan to address problem: Follow you/renal. (2) Acute deep vein thrombosis (DVT) of left iliofemoral vein Current Visit: Yes Status: Acute Plan to address problem: see notes. (3) Deep vein thrombosis Onset Date: ~03/11/18 Current Visit: Yes Status: Acute Qualifiers: DVT location: lower extremity Affected thrombotic vein of extremity: unspecified lower extremity proximal vein Chronicity: acute Laterality: left Qualified Code(s): I82.4Y2 - Acute embolism and thrombosis of unspecified deep veins of left proximal lower extremity Plan to address problem: Continue with anticoagulation. 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 Subjective Date of service: 03/23/18 Principal diagnosis: left leg dvt Interval history: I am covering DR LERMA/PM .Patient seen, resting in bed, no new issues at this time, records/notes reviewed, rec remains the same, continue with anticoagulation.Further interventions will come on as need base. Objective - Constitutional Vitals: Vital Signs - 12hr 03/23/18 03/23/18 00:09 05:57 Temperature 98.5 F 98.6 F Pulse Rate 96 H 92 H Respiratory 18 18 Rate Blood Pressure 134/61 130/67 O2 Sat by Pulse 100 100 Oximetry General appearance: Present: no acute distress, well-nourished - EENT Eyes: PERRL, EOM intact ENT: hearing intact, clear oral mucosa Ears: bilateral: normal - Neck Neck: supple, normal ROM - Respiratory Respiratory effort: normal Respiratory: bilateral: CTA - Breasts Breasts: deferred - Cardiovascular Rhythm: regular Heart Sounds: Present: S1 & S2. Absent: gallop, rub Extremities: pulses intact, No edema, normal color, Full ROM - Gastrointestinal General gastrointestinal: Present: soft, non-tender, non-distended, normal bowel sounds Rectal Exam: deferred - Genitourinary Female genitourinary: deferred - Integumentary Integumentary: clear, warm, dry - Musculoskeletal Musculoskeletal: 1, strength equal bilaterally - Neurologic Neurologic: moves all extremities - Psychiatric Psychiatric: memory intact, appropriate mood/affect, intact judgment & insight - Labs CBC & Chem 7: 03/23/18 07:42 03/23/18 07:42 Labs: Abnormal lab results 03/22/18 03/23/18 03/23/18 Range/Units 22:37 07:42 07:42 WBC 14.4 H (4.5-11.0) K/mm3 RBC 3.35 L (3.65-5.03) M/mm3 Hgb 9.2 L (10.1-14.3) gm/dl Hct 28.2 L (30.3-42.9) % MCH 27 L (28-32) pg RDW 16.0 H (13.2-15.2) % Eosinophils % (Manual) 10.0 H (0.0-4.3) % Seg Neutrophils # Man 8.9 H (1.8-7.7) K/mm3 Monocytes # (Manual) 1.0 H (0.0-0.8) K/mm3 Eosinophils # (Manual) 1.4 H (0.0-0.4) K/mm3 Heparin Anti-Xa Level < 0.10 L (0.3-0.7) U.I./ml BUN 40 H (7-17) mg/dL Creatinine 11.7 H (0.7-1.2) mg/dL Calcium 8.3 L (8.4-10.2) mg/dL 03/23/18 Range/Units 07:42 WBC (4.5-11.0) K/mm3 RBC (3.65-5.03) M/mm3 Hgb (10.1-14.3) gm/dl Hct (30.3-42.9) % MCH (28-32) pg RDW (13.2-15.2) % Eosinophils % (Manual) (0.0-4.3) % Seg Neutrophils # Man (1.8-7.7) K/mm3 Monocytes # (Manual) (0.0-0.8) K/mm3 Eosinophils # (Manual) (0.0-0.4) K/mm3 Heparin Anti-Xa Level 0.17 L (0.3-0.7) U.I./ml BUN (7-17) mg/dL Creatinine (0.7-1.2) mg/dL Calcium (8.4-10.2) mg/dL
[2018-03-23 13:49] LABS: Bacteria,Urine 1+ /HPF (Negative); Bilirubin,Urine NEG (Negative); Blood,Urine LG (Negative); Color,Urine Straw (Yellow); Protein,Urine <15 mg/dL mg/dL (Negative); Urobilinogen,Urine < 2.0 mg/dL (<2.0)
[2018-03-23] MEDS: SODIUM CHLORIDE FLUSH SYRINGE 10 ML IV SCH (22:30)
[2018-03-24 01:03] LABS: Hematocrit 25.1 % (30.3-42.9); Hemoglobin 8.7 gm/dl (10.1-14.3); Mean Corpuscular HGB Conc 35 % (30-34); Mean Corpuscular Hemoglobin 29 pg (28-32); Mean Corpuscular Volume 83 fl (79-97); Platelet Count 216 K/mm3 (140-440); Red Blood Count 3.04 M/mm3 (3.65-5.03); Red Cell Distribution Width 15.5 % (13.2-15.2)
[2018-03-24] MEDS: HEPARIN/ 0.45% NACL-25,000 UNIT/500 ML 25,000 UNIT/500 ML BAG IV SCH (02:18)
[2018-03-24 05:50] LABS: Basophils % (Manual) 0 % (0.0-1.8); Total Cells Counted 100
[2018-03-24 05:51] LABS: Anisocytosis 1+; Large Platelets Few; Platelet Estimate Consistent w Auto
--- NOTE | 2018-03-24 09:13 | Progress Note ---
Assessment and Plan 1. Acute kidney injury: Likely ATN in the setting of NSAIDs and IV contrast. Complements negative, RAY and ANCA were negative. Lupus anticoagulant was positive. The test needs to be repeated in 12 weeks. Direct oral anticoagulant may cause false positive. Patient was started on hemodialysis due to declining renal function and suspected uremic symptoms. She was last dialyzed on 03/20/18. Creatinine appears to be leveled off. Monitor renal function and STATISTICS INTERN needs. Renal prognosis is guarded. 2. Extensive DVT: Followed by Heme-Onc. 3. Volume overload: Continue PO Lasix. 4. Anemia. Patient decided to leave AMA. Understood the risks. D/w and , rec Eliquis 2.5 mg BID. Eprescribed. Appt on 03/26 to see me. Subjective Date of service: 03/24/18 Principal diagnosis: left leg dvt Interval history: Patient was seen and examined at the bedside. Patient is doing ok. Objective - General Appearance General appearance: well-developed, well-nourished, appears stated age, obese, other (not in distress, right IJ temp catheter) EENT: ATNC, PERRL, mucous membranes moist, hearing intact, vision intact Neck: supple Respiratory: Present: Clear to Ascultation Cardiology: regular, S1S2, no murmurs Gastrointestinal: normoactive bowel sounds, no tenderness, obese Integumentary: other (bilateral UE blisters noted) Neurologic: no focal deficit, no asterixis, alert and oriented x3 Musculoskeletal: other (1+ edema of both LEs noted) - Lab 03/24/18 00:55 03/24/18 00:55 Most recent lab results Calcium 8.0 mg/dL (8.4-10.2) L 03/24/18 00:55 Phosphorus 3.60 mg/dL (2.5-4.5) 03/22/18 05:17 Urine Creatinine 67.5 mg/dL (0.1-20.0) H 03/14/18 17:43 Urine Sodium 79 mmol/L 03/14/18 17:43
[2018-03-24] MEDS: LASIX PO SCH (11:06)
[2018-03-24] MEDS: SODIUM CHLORIDE FLUSH SYRINGE 10 ML IV SCH ×2 (11:14→11:16)
--- NOTE | 2018-03-24 11:17 | Progress Note ---
Assessment and Plan Assessment and plan: Acute DVT left lower extremity, extensive. s/p thrombectomy, angioplasty and stent placement 03/11 Continue heparin drip Acute kidney injury, due to ATN in the setting of NSAIDs and contrast nephropathy Patient was started on hemodialysis yesterday due to declining renal function and suspected uremic symptoms. RAY, ANCA, Complements and Lupus anticoagulant ordered. Complements negative. Rash and nonspecific skin eruption. Patient has rash unsure if secondary to anticoagulant versus antihypertensive vs abx. Changed antihypertensive from amlodipine to atenolol. ? Levaquin allergy. Levaquin has been discontinued. Metabolic acidosis due to KETTY Obesity. Discussed diet and exercise to lose weight Smoking cessation counseling done. She states she has been using patch to quit smoking Hypertension Continue Amlodipine 5mg po daily Hydralazine iv prn Full code status History Interval history: No new issues overnight Hospitalist Physical - Constitutional Vitals: Temp Pulse Resp BP Pulse Ox 98.8 F 92 H 15 156/76 98 03/23/18 17:57 03/23/18 17:57 03/23/18 17:57 03/23/18 17:57 03/23/18 17:57 General appearance: Present: no acute distress, well-nourished - EENT Eyes: Present: PERRL, EOM intact ENT: hearing intact, clear oral mucosa, dentition normal - Neck Neck: Present: supple, normal ROM - Respiratory Respiratory effort: normal Respiratory: bilateral: CTA - Cardiovascular Rhythm: regular Heart Sounds: Present: S1 & S2. Absent: gallop, rub - Extremities Extremities: no ischemia, No edema, Full ROM - Abdominal General gastrointestinal: soft, non-tender, non-distended, normal bowel sounds - Integumentary Integumentary: Present: clear, warm, dry - Neurologic Neurologic: CNII-XII intact, moves all extremities Results - Labs CBC & Chem 7: 03/24/18 00:55 03/24/18 00:55 Labs: Laboratory Last Values WBC 14.2 K/mm3 (4.5-11.0) H 03/24/18 00:55 RBC 3.04 M/mm3 (3.65-5.03) L 03/24/18 00:55 Hgb 8.7 gm/dl (10.1-14.3) L 03/24/18 00:55 Hct 25.1 % (30.3-42.9) L 03/24/18 00:55 MCV 83 fl (79-97) 03/24/18 00:55 MCH 29 pg (28-32) 03/24/18 00:55 MCHC 35 % (30-34) H 18 00:55 RDW 15.5 % (13.2-15.2) H 03/24/18 00:55 Plt Count 216 K/mm3 (140-440) 03/24/18 00:55 Lymph % (Auto) 5.2 % (13.4-35.0) L 03/18/18 06:00 [place] % (Auto) 3.4 % (0.0-7.3) 03/18/18 06:00 Eos % (Auto) 4.0 % (0.0-4.3) 03/18/18 06:00 Baso % (Auto) 0.1 % (0.0-1.8) 03/18/18 06:00 Lymph # 0.7 K/mm3 (1.2-5.4) L 03/18/18 06:00 [place] # 0.4 K/mm3 (0.0-0.8) 03/18/18 06:00 Eos # 0.5 K/mm3 (0.0-0.4) H 03/18/18 06:00 Baso # 0.0 K/mm3 (0.0-0.1) 03/18/18 06:00 Add Manual Diff Complete 03/24/18 00:55 Total Counted 100 03/24/18 00:55 Seg Neutrophils % 87.3 % (40.0-70.0) H 03/18/18 06:00 Seg Neuts % (Manual) 63.0 % (40.0-70.0) 03/24/18 00:55 Band Neutrophils % 0 % 03/24/18 00:55 Lymphocytes % (Manual) 21.0 % (13.4-35.0) 03/24/18 00:55 Reactive Lymphs % (Man) 0 % 03/24/18 00:55 Monocytes % (Manual) 5.0 % (0.0-7.3) 03/24/18 00:55 Eosinophils % (Manual) 11.0 % (0.0-4.3) H 03/24/18 00:55 Basophils % (Manual) 0 % (0.0-1.8) 03/24/18 00:55 Metamyelocytes % 0 % 03/24/18 00:55 Myelocytes % 0 % 03/24/18 00:55 Promyelocytes % 0 % 03/24/18 00:55 Blast Cells % 0 % 03/24/18 00:55 Nucleated RBC % Not Reportable 03/24/18 00:55 Seg Neutrophils # 11.6 K/mm3 (1.8-7.7) H 03/18/18 06:00 Seg Neutrophils # Man 8.9 K/mm3 (1.8-7.7) H 03/24/18 00:55 Band Neutrophils # 0.0 K/mm3 03/24/18 00:55 Lymphocytes # (Manual) 3.0 K/mm3 (1.2-5.4) 03/24/18 00:55 Abs React Lymphs (Man) 0.0 K/mm3 03/24/18 00:55 Monocytes # (Manual) 0.7 K/mm3 (0.0-0.8) 03/24/18 00:55 Eosinophils # (Manual) 1.6 K/mm3 (0.0-0.4) H 03/24/18 00:55 Basophils # (Manual) 0.0 K/mm3 (0.0-0.1) 03/24/18 00:55 Metamyelocytes # 0.0 K/mm3 03/24/18 00:55 Myelocytes # 0.0 K/mm3 03/24/18 00:55 Promyelocytes # 0.0 K/mm3 03/24/18 00:55 Blast Cells # 0.0 K/mm3 03/24/18 00:55 WBC Morphology Not Reportable 03/24/18 00:55 Hypersegmented Neuts Not Reportable 03/24/18 00:55 Hyposegmented Neuts Not Reportable 03/24/18 00:55 Hypogranular Neuts Not Reportable 03/24/18 00:55 Smudge Cells Not Reportable 03/24/18 00:55 Toxic Granulation Not Reportable 03/24/18 00:55 Toxic Vacuolation Not Reportable 03/24/18 00:55 Dohle Bodies Not Reportable 03/24/18 00:55 Pelger-Huet Anomaly Not Reportable 03/24/18 00:55 Kristy Rods Not Reportable 03/24/18 00:55 Platelet Estimate Consistent w auto 03/24/18 00:55 Clumped Platelets Not Reportable 03/24/18 00:55 Plt Clumps, EDTA Not Reportable 03/24/18 00:55 Large Platelets Few 03/24/18 00:55 Giant Platelets Not Reportable 03/24/18 00:55 Platelet Satelliting Not Reportable 03/24/18 00:55 Plt Morphology Comment Not Reportable 03/24/18 00:55 RBC Morphology Not Reportable 03/24/18 00:55 Dimorphic RBCs Not Reportable 03/24/18 00:55 Polychromasia Not Reportable 03/24/18 00:55 Hypochromasia Not Reportable 03/24/18 00:55 Poikilocytosis Not Reportable 03/24/18 00:55 Anisocytosis 1+ 03/24/18 00:55 Microcytosis Not Reportable 03/24/18 00:55 Macrocytosis Not Reportable 03/24/18 00:55 Spherocytes Not Reportable 03/24/18 00:55 Pappenheimer Bodies Not Reportable 03/24/18 00:55 Sickle Cells Not Reportable 03/24/18 00:55 Target Cells Not Reportable 03/24/18 00:55 Tear Drop Cells Not Reportable 03/24/18 00:55 Ovalocytes Not Reportable 03/24/18 00:55 Helmet Cells Not Reportable 03/24/18 00:55 [place] Bodies Not Reportable 03/24/18 00:55 [place] Rings Not Reportable 03/24/18 00:55 [place] Cells Not Reportable 03/24/18 00:55 Bite Cells Not Reportable 03/24/18 00:55 Crenated Cell Not Reportable 03/24/18 00:55 Elliptocytes Not Reportable 03/24/18 00:55 Acanthocytes (Spur) Not Reportable 03/24/18 00:55 Rouleaux Not Reportable 03/24/18 00:55 Hemoglobin C Crystals Not Reportable 03/24/18 00:55 Schistocytes Not Reportable 03/24/18 00:55 Malaria parasites Not Reportable 03/24/18 00:55 Anish Bodies Not Reportable 03/24/18 00:55 Hem Pathologist Commnt No 03/24/18 00:55 PT 16.4 Sec. (12.2-14.9) H 03/17/18 13:18 INR 1.25 (0.87-1.13) H 03/17/18 13:18 APTT 34.7 Sec. (24.2-36.6) 03/17/18 13:18 D-Dimer 7951.75 ng/mlDDU (0-234) H 03/11/18 00:03 Lupus Anticoagulant see below H 03/17/18 05:11 LA PTT Baseline 51 sec (<=40) H 03/17/18 05:11 Heparin Anti-Xa Level 0.29 U.I./ml (0.3-0.7) L 03/24/18 08:21 Sodium 141 mmol/L (137-145) 03/24/18 00:55 Potassium 3.6 mmol/L (3.6-5.0) 03/24/18 00:55 Chloride 97.2 mmol/L (98-107) L 03/24/18 00:55 Carbon Dioxide 24 mmol/L (22-30) 03/24/18 00:55 Anion Gap 23 mmol/L 03/24/18 00:55 BUN 39 mg/dL (7-17) H 03/24/18 00:55 Creatinine 11.5 mg/dL (0.7-1.2) H 03/24/18 00:55 Estimated GFR 4 ml/min 03/24/18 00:55 BUN/Creatinine Ratio 3 % 03/24/18 00:55 Glucose 88 mg/dL (65-100) 03/24/18 00:55 Lactic Acid 1.70 mmol/L (0.7-2.0) 03/11/18 07:11 Calcium 8.0 mg/dL (8.4-10.2) L 03/24/18 00:55 Phosphorus 3.60 mg/dL (2.5-4.5) 03/22/18 05:17 Total Bilirubin 0.40 mg/dL (0.1-1.2) 03/18/18 06:00 AST 11 units/L (5-40) 03/18/18 06:00 ALT 16 units/L (7-56) 03/18/18 06:00 Alkaline Phosphatase 76 units/L (35-129) 03/18/18 06:00 Total Creatine Kinase 339 units/L (30-135) H 03/13/18 04:45 Total Protein 5.7 g/dL (6.3-8.2) L 03/18/18 06:00 Albumin 3.0 g/dL (3.9-5) L 03/18/18 06:00 Albumin/Globulin Ratio 1.1 % 03/18/18 06:00 Urine Color Straw (Yellow) 03/23/18 13:25 Urine Turbidity Clear (Clear) 03/23/18 13:25 Urine pH 7.0 (5.0-7.0) 03/23/18 13:25 Ur Specific [place] 1.004 (1.003-1.030) 03/23/18 13:25 Urine Protein <15 mg/dl mg/dL (Negative) 03/23/18 13:25 Urine Glucose (UA) Neg mg/dL (Negative) 03/23/18 13:25 Urine Ketones Neg mg/dL (Negative) 03/23/18 13:25 Urine Blood Lg (Negative) 03/23/18 13:25 Urine Nitrite Neg (Negative) 03/23/18 13:25 Urine Bilirubin Neg (Negative) 03/23/18 13:25 Urine Urobilinogen < 2.0 mg/dL (<2.0) 03/23/18 13:25 Ur Leukocyte Esterase Tr (Negative) 03/23/18 13:25 Urine WBC (Auto) 7.0 /HPF (0.0-6.0) H 03/23/18 13:25 Urine RBC (Auto) 2.0 /HPF (0.0-6.0) 03/23/18 13:25 U Epithel Cells (Auto) 4.0 /HPF (0-13.0) 03/23/18 13:25 Urine Bacteria (Auto) 1+ /HPF (Negative) 03/23/18 13:25 Urine WBC Clumps 2+ /HPF 03/14/18 17:43 Urine Mucus 3+ /HPF 03/11/18 10:07 Urine Yeast (Budding) Few /HPF 03/23/18 13:25 Urine Eosinophils None seen (None Seen) 03/23/18 13:25 Urine Creatinine 67.5 mg/dL (0.1-20.0) H 03/14/18 17:43 Urine Sodium 79 mmol/L 03/14/18 17:43 Urine HCG, Qual Negative (Negative) 03/11/18 10:07 RAY Screen Negative (Negative) 03/17/18 05:11 Proteinase 3 (PR3) Ab <1.0 AI (<1.0) 03/17/18 05:11 Myeloperoxidase Ab <1.0 AI (<1.0) 03/17/18 05:11 Complement C3 143 mg/dL (83-193) 03/17/18 05:11 Complement C4 23 mg/dL (15-57) 03/17/18 05:11 Hepatitis A IgM Ab Nonreactive (NonReactive) 03/18/18 13:11 Hep Bs Antigen Non-reactive (Negative) 03/18/18 13:11 Hep B Core IgM Ab Non-reactive (NonReactive) 03/18/18 13:11 Hepatitis C Antibody Non-reactive (NonReactive) 03/18/18 13:11
[2018-03-24] MEDS ORDERED: ELIQUIS PO SCH (13:00)
[2018-03-24 13:51] VITALS: BP 182/103
== END 2018-03-24 14:30 | disposition left against medical advice (07) | DRG 270 ==
LOC: ED 21:52 → 3A 03-11 11:29
PROVIDERS: ADMIT Internal Medicine; ATTEND Hospitalist
PROC: 06CN3ZZ Extirpation of Matter from Left Femoral Vein, Percutaneous Approach (ICD-10-PCS; principal; 2018-03-11)
PROC: 06H03DZ Insertion of Intraluminal Device into Inferior Vena Cava, Percutaneous Approach (ICD-10-PCS; 2018-03-11)
PROC: 06CD3ZZ Extirpation of Matter from Left Common Iliac Vein, Percutaneous Approach (ICD-10-PCS; 2018-03-11)
PROC: 06CG3ZZ Extirpation of Matter from Left External Iliac Vein, Percutaneous Approach (ICD-10-PCS; 2018-03-11)
PROC: 067D3DZ Dilation of Left Common Iliac Vein with Intraluminal Device, Percutaneous Approach (ICD-10-PCS; 2018-03-11)
PROC: 067G3DZ Dilation of Left External Iliac Vein with Intraluminal Device, Percutaneous Approach (ICD-10-PCS; 2018-03-11)
PROC: 067C3DZ Dilation of Right Common Iliac Vein with Intraluminal Device, Percutaneous Approach (ICD-10-PCS; 2018-03-11)
PROC: B5191ZZ Fluoroscopy of Inferior Vena Cava using Low Osmolar Contrast (ICD-10-PCS; 2018-03-11)
PROC: B543ZZA Ultrasonography of Right Jugular Veins, Guidance (ICD-10-PCS; 2018-03-11)
PROC: B54CZZA Ultrasonography of Left Lower Extremity Veins, Guidance (ICD-10-PCS; 2018-03-11)
PROC: 3E03317 Introduction of Other Thrombolytic into Peripheral Vein, Percutaneous Approach (ICD-10-PCS; 2018-03-11)
PROC: 3E033GC Introduction of Other Therapeutic Substance into Peripheral Vein, Percutaneous Approach (ICD-10-PCS; 2018-03-11)
PROC: 5A1D70Z Performance of Urinary Filtration, Intermittent, Less than 6 Hours Per Day (ICD-10-PCS; 2018-03-18)
PROC: 02H633Z Insertion of Infusion Device into Right Atrium, Percutaneous Approach (ICD-10-PCS; 2018-03-18)
PROC: B244ZZZ Ultrasonography of Right Heart (ICD-10-PCS; 2018-03-18)
PROC: B2141ZZ Fluoroscopy of Right Heart using Low Osmolar Contrast (ICD-10-PCS; 2018-03-18)
PROC: 5A1D70Z Performance of Urinary Filtration, Intermittent, Less than 6 Hours Per Day (ICD-10-PCS; 2018-03-20)
DX: I82.422 Acute embolism and thrombosis of left iliac vein (principal); N17.0 Acute kidney failure with tubular necrosis; E87.2 Acidosis; Z68.41 Body mass index [BMI] 40.0-44.9, adult; J98.11 Atelectasis; D68.59 Other primary thrombophilia; I16.0 Hypertensive urgency; F17.200 Nicotine dependence, unspecified, uncomplicated; D64.9 Anemia, unspecified; D69.6 Thrombocytopenia, unspecified; R21 Rash and other nonspecific skin eruption; I10 Essential (primary) hypertension; E66.9 Obesity, unspecified; Z71.3 Dietary counseling and surveillance; Z80.9 Family history of malignant neoplasm, unspecified; Z71.6 Tobacco abuse counseling; T39.395A Adverse effect of other nonsteroidal anti-inflammatory drugs [NSAID], initial encounter
CPT/HCPCS: 36415; 36556; 37187; 37191; 37238; 37239; 71045; 74177; 75822; 76770; 76937; 77001; 80048; 80053; 80074; 81001; 81025; 82140; 82550; 82570; 84100; 84300; 85007; 85014; 85018; 85025; 85027; 85049; 85210; 85220; 85379; 85520; 85610; 85613; 85730; 86021; 86038; 86160; 87040; 87086; 89050; 96365; 96366; 96375; 96376; C1725; C1752; C1757; C1769; C1876; C1880; C1887; C1894; J0690; J1200; J1644; J1885; J1940; J1956; J2250; J2270; J2405; J2997; J3010; J7030; J7040; Q9967

== ENCOUNTER 2018-03-26 12:06 | Outpatient (CLI) | payer OTHER ==
[2018-03-26 12:42] LABS: Hematocrit 26.7 % (30.3-42.9); Mean Corpuscular HGB Conc 34 % (30-34); Mean Corpuscular Hemoglobin 28 pg (28-32); Mean Corpuscular Volume 83 fl (79-97); Platelet Count 282 K/mm3 (140-440); Red Blood Count 3.22 M/mm3 (3.65-5.03)
[2018-03-26 12:57] LABS: Bacteria,Urine 1+ /HPF (Negative); Bilirubin,Urine NEG (Negative); Blood,Urine LG (Negative); Color,Urine Yellow (Yellow); Protein,Urine <15 mg/dL mg/dL (Negative); Urobilinogen,Urine < 2.0 mg/dL (<2.0)
[2018-03-26 13:15] LABS: Albumin 4.2 g/dL (3.9-5); Calcium 8.6 mg/dL (8.4-10.2)
[2018-03-26 13:44] LABS: Band Neutrophils # (Manual) 0.2 K/mm3; Basophils % (Manual) 0 % (0.0-1.8); Total Cells Counted 100
[2018-03-26 13:46] LABS: Platelet Estimate Consistent w Auto; RBC Morphology Normal
== END 2018-03-26 12:07 | disposition home or self-care (01) ==
LOC: LAB 12:06
PROVIDERS: ATTEND Internal Medicine Nephrology
DX: N17.9 Acute kidney failure, unspecified (principal); I10 Essential (primary) hypertension; Z72.0 Tobacco use
CPT/HCPCS: 36415; 80048; 81001; 82040; 84100; 85007; 85025